=== PATIENT | male | born 1935 | race Caucasian/White ===

== ENCOUNTER → 2017-03-03 | Outpatient (CLI) | payer MEDICARE ==
[~2017-03-03] MED LIST: ASP81TEC PO; BISO1TAB39; C250T; CHOL10003 PO; CIPR500T78 PO; COD LIVER OIL; CYAN100021 PO; DOCU100T7; ERGO400C; FLAX OIL; FLAX SEED; FRSM20T; FURO20TA4; FURO40TA4; GLBR5T; INSU100C4; INSU100V6 SQ; KCL20TCR; LACT1CAP62 PO; LECITHIN; LEVE1U; LUTE20TA PO; LVT.05T PO; LYCO15CA PO; LYCOPENE 10 MG; METF-380; MTF500T; NF-METANX; NITR100C3 PO; OMG1KC; PANT40TA PO; POLY119P; POTA10CA16; PROSTATE PILL; SAXA5TAB PO; SMV20T; VIT1TABL83 PO; VITA-185 PO; VITA1CAP59; ZINC1CAP; [UNRECOGNIZED DRUG - OTHER]
--- NOTE | 2017-03-03 15:59 | Diagnostic Imaging Report ---
PROCEDURE: MRI lumbar spine. TECHNIQUE: Multiplanar, multisequence MRI of the lumbar spine was performed without contrast. INDICATION: Chronic back pain. FINDINGS: There is susceptibility artifact related to posterior fusion hardware at the L3 and L4 levels. There is suggestion of anterior fusion as well between L3 and L4 vertebral bodies. The alignment at the posterior spinal line is satisfactory. The vertebral body heights are preserved. There is significant disc height loss at the L5-S1 level. There is disc desiccation at all other levels. There is distortion of the marrow signal around the posterior fusion hardware, otherwise no significant marrow signal abnormality is seen. 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 It is not significantly changed from 02/21/2010. T12-L1: There is a minimal disc bulge. No spinal canal stenosis or foraminal narrowing. L1-L2: There is a minimal disc bulge. There is no spinal canal stenosis or foraminal narrowing. Minimal facet hypertrophy is seen at this level. L2-L3: There is a diffuse disc bulge and bilateral moderate facet hypertrophy. There is mild central canal stenosis reducing the AP dimension of the canal to 9.6 mm. The lateral recess demonstrates bilateral moderate narrowing worse on the left side. There is minimal foraminal stenosis bilaterally. L3-L4: There is fusion of the vertebral bodies with minimal remaining posterior osteophytes. No central canal stenosis. There is suggestion of mild foraminal narrowing on the left side only. L4-L5: There is a diffuse disc bulge asymmetric to the right side. There is iorn-kp-abkvvsjh facet hypertrophy bilaterally. There is central canal minimal stenosis reducing the AP dimension of the canal to 9.6 mm. The lateral recess demonstrates moderate stenosis on the right and mild stenosis on the left. There is severe foraminal stenosis on the right and no significant foraminal stenosis on the left. Also an extraforaminal right disc component is abutting the exiting right L4 spinal nerve. L5-S1: There is a diffuse disc bulge and mild facet hypertrophy. No central canal stenosis. There is mild narrowing of the lateral recess bilaterally. The foramina demonstrate mild stenosis on both sides. IMPRESSION: There is mild central canal stenosis and moderate lateral recess stenosis more on the left side at the L3-L4 level. There is severe foraminal stenosis on the right side at L4-L5. Other findings as above. Dictated by: Dictated on workstation # [id number]
== END ==
LOC: RAD 11:12
PROVIDERS: ATTEND Family Medicine
DX: M48.06 Spinal stenosis, lumbar region (principal)
CPT/HCPCS: 72148

== ENCOUNTER → 2018-02-08 | Outpatient (CLI) | payer MEDICARE | LOC: RT 13:58 | PROVIDERS: ATTEND Nurse Practitioner Family | DX: R06.02 Shortness of breath (principal); R06.2 Wheezing; I25.10 Atherosclerotic heart disease of native coronary artery without angina pectoris; I10 Essential (primary) hypertension; E78.5 Hyperlipidemia, unspecified | CPT/HCPCS: 94060; 94726; 94729 ==

== ENCOUNTER → 2018-02-24 | Outpatient (CLI) | payer MEDICARE ==
[2018-02-24 10:21] LABS: BASOPHILS % (AUTO) 0 % (0-10); EOSINOPHILS # (AUTO) 0.3 10^3/uL (0.0-0.3); EOSINOPHILS % (AUTO) 4 % (0-10); HEMATOCRIT 37 % (40-54); HEMOGLOBIN 12.1 G/DL (13.3-17.7); LYMPHOCYTES # (AUTO) 2.4 X 10^3 (1.0-4.0); LYMPHOCYTES % (AUTO) 26 % (12-44); MEAN CORPUSCULAR HEMOGLOBIN 27 PG (25-34); MEAN CORPUSCULAR HGB CONC 33 G/DL (32-36); MEAN CORPUSCULAR VOLUME 82 FL (80-99); MEAN PLATELET VOLUME 10.9 FL (7.4-10.4); MONOCYTES # (AUTO) 0.7 X 10^3 (0.0-1.0); MONOCYTES % (AUTO) 8 % (0-12); NEUTROPHILS # (AUTO) 5.5 X 10^3 (1.8-7.8); NEUTROPHILS % (AUTO) 61 % (42-75); PLATELET COUNT 232 10^3/uL (130-400); RED BLOOD COUNT 4.43 10^6/uL (4.35-5.85); RED CELL DISTRIBUTION WIDTH 14.5 % (10.0-14.5)
--- NOTE | 2018-02-24 10:41 | Diagnostic Imaging Report ---
Indication: Lower respiratory infection. PA and lateral chest There are postop changes from CABG surgery. Heart size and pulmonary vascularity are normal. Lungs are clear. There are no effusions or pneumothoraces. Impression: Negative chest. Dictated by: Dictated on workstation # [id number]
== END ==
LOC: RAD 09:46
PROVIDERS: ATTEND Nurse Practitioner Family
DX: J22 Unspecified acute lower respiratory infection (principal)
CPT/HCPCS: 36415; 71046; 85025

== ENCOUNTER → 2018-06-16 | Outpatient (CLI) | payer MEDICARE | LOC: CARD 10:05 | PROVIDERS: ATTEND Nurse Practitioner Family | DX: R06.02 Shortness of breath (principal); I25.10 Atherosclerotic heart disease of native coronary artery without angina pectoris; I34.0 Nonrheumatic mitral (valve) insufficiency | CPT/HCPCS: 93306 ==

== ENCOUNTER → 2018-08-10 | Outpatient (CLI) | payer MEDICARE ==
--- NOTE | 2018-08-10 14:59 | Diagnostic Imaging Report ---
PROCEDURE: CT lumbar spine without contrast. TECHNIQUE: Multiple contiguous axial images were obtained through the lumbar spine without the use of intravenous contrast. Sagittal and coronal reformations were then performed. INDICATION: Back pain, right leg pain. FINDINGS: There are no previous CT lumbar spine examinations available for comparison. The MRI lumbar spine exam of 02/21/2010 noted an osteophyte disc complex on the left at L3-4. In the interval since the previous exam, the patient has undergone a fusion of L3 and L4. There are bilateral pedicle screws in place at this level on this exam. The orthopedic hardware seems to be in good position. There is also an interbody device, and it too appears to be in good position. The axial images do show that there is a persistent extradural defect on the left at this level (image 60/111). This does appear to be related to a disc osteophyte complex. This finding compresses the left ventral aspect of the thecal sac resulting in mild spinal stenosis. There is also narrowing of the neural foramen on the left at this level, and there may be encroachment of the exiting left nerve root. There is no significant neural foraminal narrowing on the right at L3-4. In the interval since the prior study, a broad-based disc bulge has developed at the L4-5 level. There does appear to be trefoil stenosis at this level with narrowing of the neural foramen bilaterally, particularly on the right. At the L5-S1 level, there is narrowing of the disc space. This appearance is similar to the prior exam. There is a disc bulge centrally at this level, but there does not appear to be any significant central stenosis. There is moderate narrowing of the neural foramen bilaterally at this level, particularly on the right. At the L2-3 level, there is a broad-based disc bulge centrally which narrows the AP diameter of the thecal sac to approximately 10.8 mm. There is also mild narrowing of the neural foramen bilaterally at this level. There is no evidence for spinal stenosis or nerve root encroachment at L1-2. There is no fracture or acute bony abnormality identified. There is no sign of a paraspinal mass. Incidental note is again made of a large sacral cyst at the S2-3 level. IMPRESSION: 1. In the interval since the prior study, the patient has undergone a fusion of L3 and L4. The orthopedic hardware appears to be in good position. The extradural disc osteophyte complex on the left seen on the previous study at the L3-4 level still appears to be present. This does result in mild spinal stenosis on the left and narrowing of the neural foramen on the left. 2. In the interval since the previous exam, trefoil stenosis has developed at the L4-5 level. There is also narrowing of the neural foramen bilaterally at this level, particularly on the right. There is also moderate narrowing of the neural foramen bilaterally at L5-S1, again more so on the right. 3. There is mild narrowing of the thecal sac at the L2-3 level, but there is no significant central stenosis or neural foraminal narrowing identified. 4. There is no acute bony abnormality evident. Dictated by: Dictated on workstation # [id number]
== END ==
LOC: RAD 13:32
PROVIDERS: ATTEND Family Medicine
DX: M48.061 Spinal stenosis, lumbar region without neurogenic claudication (principal); M99.73 Connective tissue and disc stenosis of intervertebral foramina of lumbar region; Z98.1 Arthrodesis status
CPT/HCPCS: 72131

== ENCOUNTER → 2018-12-30 | Outpatient (CLI) | payer MEDICARE | LOC: CARD 08:10 | PROVIDERS: ATTEND Internal Medicine Cardiovascular Disease | DX: I25.10 Atherosclerotic heart disease of native coronary artery without angina pectoris (principal); R42 Dizziness and giddiness; M79.89 Other specified soft tissue disorders; I77.9 Disorder of arteries and arterioles, unspecified; E11.9 Type 2 diabetes mellitus without complications; K21.9 Gastro-esophageal reflux disease without esophagitis; E78.5 Hyperlipidemia, unspecified; I10 Essential (primary) hypertension | CPT/HCPCS: 93225; 93226 ==

== ENCOUNTER 2019-03-25 13:25 | Outpatient (RCR) | payer MEDICARE | END 2019-04-05 | disposition home or self-care (01) | PROVIDERS: ATTEND Neurological Surgery | DX: M48.061 Spinal stenosis, lumbar region without neurogenic claudication (principal); M54.5 Low back pain ==

== ENCOUNTER 2019-04-14 04:29 | Inpatient (IN) | payer MEDICARE ==
[~2019-04-14] VITALS: Ht 172.7 cm; Wt 91.7 kg
[2019-04-14] VITALS (15 sets, daily range): BP systolic 140–180; BP diastolic 61–150
[2019-04-14 05:17] LABS: BASOPHILS % (AUTO) 1 % (0-10); EOSINOPHILS # (AUTO) 0.2 10^3/uL (0.0-0.3); EOSINOPHILS % (AUTO) 3 % (0-10); HEMATOCRIT 36 % (40-54); LYMPHOCYTES % (AUTO) 23 % (12-44); MEAN CORPUSCULAR HEMOGLOBIN 25 PG (25-34); MEAN CORPUSCULAR HGB CONC 31 G/DL (32-36); MEAN CORPUSCULAR VOLUME 80 FL (80-99); MEAN PLATELET VOLUME 10.6 FL (7.4-10.4); MONOCYTES # (AUTO) 0.9 X 10^3 (0.0-1.0); MONOCYTES % (AUTO) 10 % (0-12); NEUTROPHILS # (AUTO) 5.7 X 10^3 (1.8-7.8); NEUTROPHILS % (AUTO) 64 % (42-75); PLATELET COUNT 230 10^3/uL (130-400); RED CELL DISTRIBUTION WIDTH 15.1 % (10.0-14.5); WHITE BLOOD COUNT 8.9 10^3/uL (4.3-11.0)
--- NOTE | 2019-04-14 05:18 | ED General ---
General Stated Complaint: HIGH BLOOD PRESSURE/196/78 Source of Information: Patient, Family History of Present Illness Date Seen by Provider: Apr 14, 2019 Time Seen by Provider: 04:05 Initial Comments PT ARRIVES VIA POV FROM HOME--[facility] C/O ELEVATED BLOOD PRESSURE--> 200 SYSTOLIC--SINCE 0300 THIS AM PT WITH CHRONIC HTN, AND DAUGHTER STATES THIS IS THE 4TH INCIDENT IN THE LAST 30 DAYS OF SPIKING OF BLOOD PRESSURE--190'S-200'S SYSTOLIC. AND THIS IS THE FIRST TIME IT HAS HAPPENED TWICE IN 24 HOURS CHECKS HIS BLOOD PRESSURE MULTIPLE TIMES A DAY READINGS OVER THE LAST 24 HOURS: 0810--199/68, PULSE 63 0830--193/69, PULSE 58 1230--136/52, PULSE 68 1430--128/58, PULSE 62 1440--139/61, PULSE 63 1930--153/70, PULSE 73 2200--146/60, PULSE 62 0330--206/86, PULSE 68 0400--203/77, PULSE 59 JUST PRIOR TO ARRIVAL--209/74, PULSE 56 BLOOD GLUCOSE AT 0810 YESTERDAY 180 BLOOD GLUCOSE JUST PRIOR TO ARRIVAL WAS 150 PT STATES HE DID NOT HAVE ANY SYMPTOMS WHEN HE WENT TO BED AT 2200 WOKE UP AT 0300 WITH PROFUSE SWEATS, SO CHECKED HIS BLOOD GLUCOSE AND IT WAS 150, SO STARTED CHECKING HIS BP AND PULSE BLOOD SUGARS ARE NORMALLY IN 200'S NO CHEST PAIN C/O SLIGHT DIZZINESS C/O MILD NAUSEA, NO VOMITING NO SHORTNESS OF BREATH DID HAVE MILD HEADACHE, NOT NOW NO PALPITATIONS LEGS ARE ALWAYS SWOLLEN--WAS ON LASIX 40 MG DAILY, BUT SELF DECREASED IT TO 20 MG DAILY RECENTLY DUE TO URINARY FREQUENCY PT HAS NOT TAKEN ANY MEDICATIONS TODAY, TOOK PM DOSES AT 1800 LAST PM. PT HAS HISTORY OF CAD AND CABG SEVERAL YEARS AGO, NO [place]. PT LOST 4 MONTHS AGO DAUGHTER REPORTS THAT PT HAS BEEN WORRIED ABOUT DYING THE PAST 2 WEEKS, HAS BEEN DEPRESSED, CRYING, FEELING LONELY, AND WANTS DAUGHTER OR SOMEONE WITH HIM ALL THE TIME PCP: DR. ARAIZA--HAS AN APPOINTMENT ON THURSDAY SSIS SSRS DEVELOPER: DR. MENDES Allergies and Home Medications Allergies Coded Allergies: codeine (Verified Adverse Reaction, Mild, SEVERE N/V, 11/07/09) morphine (Unverified Adverse Reaction, Mild, SEVERE N/V, 11/07/09) Home Medications Aspirin 81 Mg Tabec, 81 MG PO DAILY, (Reported) Bisoprol/Hydrochlorothiazide 1 Tab Tablet, BID, (Reported) Cholecalciferol 1,000 Unit Tablet, 1,000 UNIT PO DAILY, (Reported) Ciprofloxacin HCl 500 Mg Tablet, 500 MG PO BID Prescribed by: PAULINE BOATENG on 09/20/13 1253 Cyanocobalamin 1,000 Mcg/15 Ml Oral.susp, 1,000 MCG PO HS, (Reported) Furosemide 20 Mg Tablet, 2 TAB DAILY, (Reported) Insulin Glargine,Hum.rec.anlog 100 Unit/1 Ml Vial, 34 UNIT SQ DAILY, (Reported) Lactobacillus Acidophilus 1 Each Capsule, 1 EACH PO DAILY, (Reported) Levothyroxine Sodium 50 Mcg Tablet, 1 EACH PO DAILY, (Reported) Lutein 20 Mg Tablet, 20 MG PO DAILY, (Reported) Lycopene 15 Mg Capsule, 10 MG PO HS, (Reported) Me-Cobalam/Lm-Folate/Pyridoxal 1 Tab Tablet, BID, (Reported) Metformin Hcl 500 Mg Tablet, 2 TAB BID, (Reported) [place] 3 Polyunsat Fatty Acids 1,000 Mg Cap, 2 TAB BID, (Reported) Potassium Chloride 10 Meq Capsule.sa, DAILY, (Reported) Saxagliptin Hydrochloride 5 Mg Tablet, 5 MG PO DAILY, (Reported) Simvastatin 20 Mg Tab, HS, (Reported) Vit A,C & E/Lutein/Minerals 1 Each Tablet, 1 EACH PO BID, (Reported) Vitamin B Complex 1 Each Tablet, 1 EACH PO DAILY, (Reported) Zinc Mth/Copper/Saw Palm/Gnsg 1 Each Capsule, BID, (Reported) [Cod Liver Oil] , 2 TAB BID, (Reported) Patient Home Medication List Home Medication List Reviewed: Yes Review of Systems Review of Systems Constitutional: diaphoresis, dizziness Respiratory: no symptoms reported; No short of breath Cardiovascular: No chest pain; edema; No palpitations, No syncope; vascular heart diseas Gastrointestinal: No abdominal pain; nausea; No vomiting Genitourinary: frequency Musculoskeletal: see HPI, back pain (CHRONIC ) Skin: no symptoms reported Psychiatric/Neurological: See HPI, Headache Hematologic/Lymphatic: No Symptoms Reported Immunological/Allergic: no symptoms reported Past Xuvcfks-Cborxg-Pfjzrh Hx Patient Social History Alcohol Use: Occasionally Uses Recreational Drug Use: No Smoking Status: Former Smoker (QUIT YEARS AGO) Type Used: Cigarettes Recent Foreign Travel: No Contact w/Someone Who Travel: No Immunizations Up To Date Date of Pneumonia Vaccine: Jul 22, 2011 Date of Influenza Vaccine: Jun 22, 2012 Past Medical History Surgeries: Yes (CARDIAC CATHS--S/P CABG; BACK SURGERY X 2; PROSTATE SURGERY) Cardiac, CABG, Orthopedic, Transurethral Resection Respiratory: No Cardiac: Yes Chronic Edema/Swelling, Coronary Artery Disease, High Cholesterol, Hypertension Neurological: No Reproductive Disorders: No Genitourinary: Yes Benign Prostatic Hyperpl, Prostate Problems Gastrointestinal: Yes Gastroesophageal Reflux, Hiatal Hernia Musculoskeletal: Yes (BACK SURGERY X 2) Arthritis, Chronic Back Pain Endocrine: Yes Diabetes, Insulin dep, Hypothyroidsim HEENT: Yes Cataract Cancer: No Psychosocial: No Integumentary: No Blood Disorders: No Family Medical History No Pertinent Family Hx Physical Exam Vital Signs Vital Signs - First Documented 04/14/19 04:38 Temp 97.3 Pulse 64 Resp 18 B/P (MAP) 203/71 (115) Capillary Refill : Height, Weight, BMI Height: 5'8.00" Weight: 205lbs. 0.0oz. 92.587430cf; 31.2 BMI Method:Stated General Appearance: No Apparent Distress, WD/WN Neck: Full Range of Motion, Normal Inspection, Non Tender, Supple; No Carotid Bruit, No JVD Respiratory: Normal Breath Sounds, No Accessory Muscle Use, No Respiratory Distress Cardiovascular: Regular Rate, Rhythm, No Murmur Gastrointestinal: Normal Bowel Sounds, No Organomegaly, No Pulsatile Mass, Non Tender, Soft Extremity: Normal Capillary Refill, Normal Range of Motion, Pedal Edema (2+ BILATERALLY) Neurologic/Psychiatric: Alert, Oriented x3, No Motor/Sensory Deficits, food tray assembler II- XII Norm as Tested, Other (FLAT AFFECT. ) Skin: Normal Color, Warm/Dry Progress/Results/Core Measures Suspected Sepsis SIRS Temperature: Pulse: Respiratory Rate: Laboratory Tests 04/14/19 05:05: White Blood Count 8.9 Blood Pressure / Mean: Laboratory Tests 04/14/19 05:05: Creatinine 1.14, INR Comment 0.9, Platelet Count 230, Total Bilirubin 0.2 Results/Orders Lab Results Laboratory Tests Test 04/14/19 04:49 04/14/19 05:05 04/14/19 06:10 Range/Units Glucometer 167 H 70-110 MG/DL White Blood Count 8.9 4.3-11.0 10^3/uL Red Blood Count 4.47 4.35-5.85 10^6/uL Hemoglobin 11.0 L 13.3-17.7 G/DL Hematocrit 36 L 40-54 % Mean Corpuscular Volume 80 80-99 FL Mean Corpuscular Hemoglobin 25 25-34 PG Mean Corpuscular Hemoglobin Concent 31 L 32-36 G/DL Red Cell Distribution Width 15.1 H 10.0-14.5 % Platelet Count 230 130-400 10^3/uL Mean Platelet Volume 10.6 H 7.4-10.4 FL Neutrophils (%) (Auto) 64 42-75 % Lymphocytes (%) (Auto) 23 12-44 % Monocytes (%) (Auto) 10 0-12 % Eosinophils (%) (Auto) 3 0-10 % Basophils (%) (Auto) 1 0-10 % Neutrophils # (Auto) 5.7 1.8-7.8 X 10^3 Lymphocytes # (Auto) 2.0 1.0-4.0 X 10^3 Monocytes # (Auto) 0.9 0.0-1.0 X 10^3 Eosinophils # (Auto) 0.2 0.0-0.3 10^3/uL Basophils # (Auto) 0.0 0.0-0.1 10^3/uL Prothrombin Time 12.1 L 12.2-14.7 SEC INR Comment 0.9 0.8-1.4 Activated Partial Thromboplast Time 31 24-35 SEC Sodium Level 139 135-145 MMOL/L Potassium Level 3.9 3.6-5.0 MMOL/L Chloride Level 96 L 98-107 MMOL/L Carbon Dioxide Level 25 21-32 MMOL/L Anion Gap 18 H 5-14 MMOL/L Blood Urea Nitrogen 22 H 7-18 MG/DL Creatinine 1.14 0.60-1.30 MG/DL Estimat Glomerular Filtration Rate > 60 BUN/Creatinine Ratio 19 Glucose Level 171 H 70-105 MG/DL Calcium Level 9.4 8.5-10.1 MG/DL Corrected Calcium 9.5 8.5-10.1 MG/DL Magnesium Level 1.8 1.8-2.4 MG/DL Total Bilirubin 0.2 0.1-1.0 MG/DL Aspartate Amino Transf (AST/SGOT) 19 5-34 U/L Alanine Aminotransferase (ALT/SGPT) 16 0-55 U/L Alkaline Phosphatase 77 40-136 U/L Troponin I < 0.028 <0.028 NG/ML B-Type Natriuretic Peptide 68.5 <100.0 PG/ML Total Protein 6.6 6.4-8.2 GM/DL Albumin 3.9 3.2-4.5 GM/DL My Orders Orders - ROCÍO CHI DO Accucheck Stat ONCE (04/14/19 04:58) Ed Iv/Invasive Line Start (04/14/19 04:58) Ekg Tracing (04/14/19 04:58) Monitor-Rhythm Ecg Trace Only (04/14/19 04:58) Chest 1 View, Ap/Pa Only (04/14/19 04:58) BNP (04/14/19 04:58) Cbc With Automated Diff (04/14/19 04:58) Comprehensive Metabolic Panel (04/14/19 04:58) Magnesium (04/14/19 04:58) Protime With Inr (04/14/19 04:58) Partial Thromboplastin Time (04/14/19 04:58) Ua Culture If Indicated (04/14/19 04:58) Troponin I (04/14/19 04:58) Furosemide Tablet (Lasix Tablet) (04/14/19 06:15) Hydralazine Injection (Apresoline Inject (04/14/19 06:15) Furosemide Tablet (Lasix Tablet) (04/14/19 06:01) Medications Given in ED Current Medications Medications Dose Ordered Sig/Keisha Route Start Time Stop Time Status Last Admin Dose Admin Furosemide 40 mg ONCE ONCE PO 04/14/19 06:15 04/14/19 06:16 UNV 04/14/19 06:09 40 MG Hydralazine HCl 10 mg ONCE ONCE IV 04/14/19 06:15 04/14/19 06:16 UNV 04/14/19 06:09 10 MG Vital Signs/I&O 04/14/19 04:38 Temp 97.3 Pulse 64 Resp 18 B/P (MAP) 203/71 (115) Capillary Refill : Progress Note : Progress Note BP BEGINNING TO COME DOWN WITHOUT TREATMENT--DOWN TO 170-180'S SYSTOLIC. GAVE HYDRALAZINE AT BP DOWN TO < 180 SYSTOLIC AT TIME OF ADMIT. NO DETERIORATION IN PT'S CONDITION DURING ER STAY ECG Initial ECG Impression Date: Apr 14, 2019 Initial ECG Impression Time: 05:32 Initial ECG Rate: 54 Initial ECG Rhythm: Normal Sinus Diagnostic Imaging Comments CXR--NO ACUTE PROCESS, PER RADIOLOGIST REPORT AT 0554 Reviewed: Reviewed by Me Departure Communication (Admissions) 0603--SPOKE WITH DR. BANSAL, HOSPITALIST, ACCEPTS PT FOR ADMIT. WILL CONSULT CARDIOLOGY Impression Primary Impression: Uncontrolled hypertension Additional Impressions: IDDM (insulin dependent diabetes mellitus) HX OF CAD WITH CABG Disposition: ADMITTED INPATIENT Condition: Improved Admissions Decision to Admit Reason: Admit from ER (General) Decision to Admit/Date: Apr 14, 2019 Time/Decision to Admit Time: 06:00 Departure-Patient Inst. Referrals: RADHA ARAIZA MD (PCP/Family) Primary Care Physician ROCÍO CHI DO Apr 14, 2019 05:18
[2019-04-14 05:27] LABS: INR 0.9 (0.8-1.4); PROTHROMBIN TIME PATIENT 12.1 SEC (12.2-14.7)
[2019-04-14 05:39] LABS: ALANINE AMINOTRANSFERASE 16 U/L (0-55); ALBUMIN 3.9 GM/DL (3.2-4.5); ALKALINE PHOSPHATASE 77 U/L (40-136); BILIRUBIN,TOTAL 0.2 MG/DL (0.1-1.0); BUN/CREATININE RATIO 19; CALCIUM 9.4 MG/DL (8.5-10.1); CARBON DIOXIDE 25 MMOL/L (21-32); CHLORIDE 96 MMOL/L (98-107); CREATININE SERUM 1.14 MG/DL (0.60-1.30); GFR ESTIMATED > 60; GLUCOSE 171 MG/DL (70-105); MAGNESIUM 1.8 MG/DL (1.8-2.4); POTASSIUM 3.9 MMOL/L (3.6-5.0); SODIUM 139 MMOL/L (135-145); TOTAL PROTEIN 6.6 GM/DL (6.4-8.2)
--- NOTE | 2019-04-14 05:51 | Diagnostic Imaging Report ---
INDICATION: Hypertension. Portable upright AP view of the chest is obtained with comparison made study of 02/24/2018. FINDINGS: Heart size and pulmonary vascularity are within normal limits, and the lungs are clear, bilaterally. IMPRESSION: Unremarkable chest. Dictated by: Dictated on workstation # [id number]
[2019-04-14] MEDS ORDERED: hydrALAZINE (APESOLINE) 20 MG/ML VIAL ONE (06:00)
[2019-04-14] MEDS ORDERED: FUROSEMIDE 20 MG (LASIX) TAB ONE (06:01)
[2019-04-14] MEDS ORDERED: FUROSEMIDE 40 MG (LASIX) TAB PO ONE (06:15)
[2019-04-14] MEDS ORDERED: hydrALAZINE (APESOLINE) 20 MG/ML VIAL IV ONE (06:15)
[2019-04-14 06:18] LABS: BILIRUBIN,URINE NEGATIVE (NEGATIVE); CLARITY,URINE CLEAR; COLOR,URINE YELLOW; GLUCOSE, URINE (UA) NEGATIVE (NEGATIVE); KETONES,URINE NEGATIVE (NEGATIVE); LEUKOCYTE ESTERASE ,URINE NEGATIVE (NEGATIVE); NITRITE,URINE NEGATIVE (NEGATIVE); PH,URINE 7 (5-9); PROTEIN,URINE 1+ (NEGATIVE); UROBILINOGEN,URINE NORMAL (NORMAL)
[2019-04-14 06:24] LABS: AMORPHOUS SEDIMENT,UR FEW AMOR PHOSPHATE /LPF; BACTERIA,URINE NEGATIVE /HPF; SQUAMOUS EPITHELIAL CELL,UR RARE /HPF
[2019-04-14] MEDS ORDERED: CATHETER FLUSH 10 ML SYR IV PRN (07:15)
[2019-04-14] MEDS ORDERED: CLOB15CR2 TOP (08:30)
[2019-04-14] MEDS ORDERED: INSU100I34 SC (08:30)
[2019-04-14] MEDS ORDERED: LEVO100T7 PO (08:30)
[2019-04-14] MEDS ORDERED: FURO20TA4 PO (08:30)
[2019-04-14] MEDS ORDERED: SIMV20TA3 PO (08:30)
[2019-04-14] MEDS ORDERED: GLIP10TA13 PO (08:30)
[2019-04-14] MEDS ORDERED: METF-397 PO (08:30)
[2019-04-14] MEDS ORDERED: BISO1TAB3 PO (08:30)
[2019-04-14] MEDS ORDERED: TRAM50TA2 PO (08:30)
[2019-04-14] MEDS ORDERED: FINA5TAB6 PO (08:30)
[2019-04-14] MEDS ORDERED: OMEG1CAP58 PO (08:43)
[2019-04-14] MEDS ORDERED: VIT-10 PO (08:43)
[2019-04-14] MEDS ORDERED: LYCO10CA2 PO (08:43)
[2019-04-14] MEDS ORDERED: SAW/1TAB2 PO (08:43)
[2019-04-14] MEDS ORDERED: CHOL10007 PO (08:43)
[2019-04-14] MEDS ORDERED: COD1CAPS6 PO (08:43)
[2019-04-14] MEDS ORDERED: ASPI-983 PO (08:43)
[2019-04-14] MEDS ORDERED: LEVO1CAP11 PO (08:43)
[2019-04-14] MEDS ORDERED: LUTE20TA PO (08:44)
[2019-04-14] MEDS ORDERED: POTA99TA21 PO (08:44)
[2019-04-14] MEDS ORDERED: ZINC50TA51 PO (08:44)
[2019-04-14] MEDS ORDERED: INSU100I34 SQ (08:44)
[2019-04-14] MEDS ORDERED: ACET-2267 PO (08:44)
[2019-04-14] MEDS ORDERED: MAGN400T39 PO (08:44)
[2019-04-14] MEDS ORDERED: MULT1TAB69 PO (08:44)
[2019-04-14] MEDS ORDERED: CYAN10006 PO (08:44)
[2019-04-14] MEDS ORDERED: ONDN4T PO (08:51)
--- NOTE | 2019-04-14 08:51 | NUR ---
WENT OVER THE EXT MED HX WITH THE PATIENT AND COMPARED IT WITH THE DETAILED LIST HE HAD WITH HIM. SEE CHART FOR A COPY OF HIS LIST. THERE WERE JUST A FEW MEDICATIONS I ADDED TO HIS LIST. HE FILLED LEVOTHYROXINE 100MCG #90 03-21-19 HE STATES HE ONLY TAKES 1/2 TAB DAILY. HE FILLED BASAGLAR 45 AM AND 30 HS 03-21-19 HOWEVER STATES HE TAKES 40 AM AND 30 HS. HIS LASIX 20MG WAS FILLED #180 BID 03-03-19 HOWEVER HE STATES HE TAKES 2 TABS IN THE MORNING.
[2019-04-14] MEDS ORDERED: amLODIPine 10 MG (NORVASC) TAB PO NR (09:15)
--- NOTE | 2019-04-14 09:21 | NUR ---
Initial visit with the pt and his daughter. Offered compassionate presence and engaged in active listening. Pt states he came to the hospital at 4am, and would appreciate prayer for improvement so he can return home. He is [employer] and affiliated with [facility]. They both requested Fr. Davis be contacted for support. Message given to Fr. Davis
--- NOTE | 2019-04-14 10:06 | History & Physical-Hospitalist ---
History of Present Illness HPI/Chief Complaint Chief complaint: Diaphoresis with vague chest pressure. HPI: This is an 83yoWM known to me when I took care of his when I recently four months ago, who the Pt is having real difficulty with grief reaction, presented to the ER after he was woke up this morning at 0300 after a diaphoretic episode. He was found to have malignant hypertension and a history of heart disease in need of risk-stratification. Dr. Au did see the Pt and will evaluate additional testing that will be needed. Norvasc was give of 5 Mg for severe hypertension and will be monitored in closely in the mean time and will evaluate the next step in his care plan. Source: patient, RN/MD, old records Exam Limitations: no limitations Date Seen 04/14/19 Time Seen by a Provider: 09:45 Attending Physician Blank Fuentes Floyd R MD Referring Physician Date of Admission Apr 14, 2019 at 06:00 Home Medications & Allergies Home Medications Reviewed patient Home Medication Reconciliation performed by pharmacy medication reconciliations spray technician and/or nursing. Patients Allergies have been reviewed. Allergies Allergies Coded Allergies codeine (Verified Adverse Reaction, Mild, SEVERE N/V, 11/07/09) morphine (Unverified Adverse Reaction, Mild, SEVERE N/V, 11/07/09) Past Zlnmvux-Abgiyv-Hcztbi Hx Past Med/Social Hx: Reviewed Nursing Past Med/Soc Hx, Reviewed and Corrections made Patient Social History Marrital Status: Employed/Student: retired Alcohol Use: Occasionally Uses Recreational Drug Use: No Smoking Status: Former Smoker (QUIT YEARS AGO) Type Used: Cigarettes Recent Foreign Travel: No Contact w/other who traveled: No Recent Hopitalizations: Yes (HX-BACK SURG.) Recent Infectious Disease Expo: No Immunizations Up To Date Date of Pneumonia Vaccine: Jul 22, 2011 Date of Influenza Vaccine: Jun 22, 2012 Past Medical History Surgeries: Cardiac, CABG, Orthopedic, Transurethral Resection Cardiac: Chronic Edema/Swelling, Coronary Artery Disease, High Cholesterol, H ypertension Reproductive: No Sexually Transmitted Disease: No Genitourinary: Benign Prostatic Hyperpl, Prostate Problems Gastrointestinal: Gastroesophageal Reflux, Hiatal Hernia Musculoskeletal: Arthritis, Chronic Back Pain Endocrine: Diabetes, Insulin dep, Hypothyroidsim HEENT: Cataract History of Blood Disorders: No Family History No Pertinent Family Hx Review of Systems Constitutional: see HPI, dizziness EENTM: no symptoms reported Respiratory: no symptoms reported Cardiovascular: chest pain Gastrointestinal: no symptoms reported Genitourinary: no symptoms reported Musculoskeletal: no symptoms reported Skin: no symptoms reported Psychiatric/Neurological: No Symptoms Reported All Other Systems Reviewed Negative Unless Noted: Yes Physical Exam Physical Exam Vital Signs Vital Signs - First Documented 04/14/19 04/14/19 04/14/19 04:38 06:46 07:10 Temp 97.3 Pulse 64 Resp 18 B/P (MAP) 203/71 (115) Pulse Ox 98 O2 Delivery Room Air Capillary Refill : Less Than 3 SecondsLess Than 3 Seconds Height, Weight, BMI Height: 5'8.00" Weight: 187lbs. 0.0oz. 84.986738lx; 28.4 BMI Method:Stated General Appearance: No Apparent Distress, WD/WN, Chronically ill Eyes: Right Eye Normal Inspection, Right Eye PERRL HEENT: PERRL/EOMI, TMs Normal, Normal ENT Inspection, Pharynx Normal, Moist Mucous Membranes Neck: Full Range of Motion, Normal Inspection, Non Tender Respiratory: Chest Non Tender, Lungs Clear, Normal Breath Sounds, No Accessory Muscle Use, No Respiratory Distress Cardiovascular: Regular Rate, Rhythm, No Edema, No Gallop, No JVD, No Murmur, Normal Peripheral Pulses Gastrointestinal: Normal Bowel Sounds, No Organomegaly, No Pulsatile Mass, Non Tender, Soft Back: Normal Inspection, No CVA Tenderness, No Vertebral Tenderness Extremity: Normal Capillary Refill, Normal Inspection, Normal Range of Motion, Non Tender, No Calf Tenderness, No Pedal Edema Neurologic/Psychiatric: Alert, Oriented x3, No Motor/Sensory Deficits, Normal Mood/Affect Skin: Normal Color, Warm/Dry Lymphatic: No Adenopathy Results Results/Procedures Labs Laboratory Tests 04/14/19 05:05 Patient resulted labs reviewed. Assessment/Plan Admission Diagnosis Assessment: Diaphoresis with chest pain suspicious for acute coronary syndrome Known CAD previous bypass Malignant hypertension with urgency Hyperlipidemia Severe grief reaction Insomnia Plan: Home meds Appreciate cardiology consultation Monitor blood pressure and treat aggressively Admission Status: Inpatient Order (span 2 midnights) Reason for Inpatient Admission: ACS will require 3 days for HTN management and procedures Diagnosis/Problems Diagnosis/Problems (1) Hypertensive urgency, malignant Status: Acute (2) Chest pain Status: Acute Qualifiers: Chest pain type: unspecified Qualified Codes: R07.9 - Chest pain, unspecified (3) Diaphoresis Status: Acute (4) Diabetes Status: Chronic Qualifiers: Diabetes mellitus type: type 2 Diabetes mellitus intermediate insulin use: unspecified local company intermodal truck driver insulin use status Diabetes mellitus complication status: with other specified complication Qualified Codes: E11.69 - Type 2 diabetes mellitus with other specified complication (5) Hyperlipemia Status: Chronic Qualifiers: Hyperlipidemia type: mixed hyperlipidemia Qualified Codes: E78.2 - Mixed hyperlipidemia (6) CAD (coronary artery disease) Status: Chronic Qualifiers: Coronary Disease-Associated Artery/Lesion type: [place] artery [place] vs. transplanted heart: [place] heart Associated angina: without angina Qualified Codes: I25.10 - Atherosclerotic heart disease of [place] coronary artery without angina pectoris (7) Hx of CABG Status: Chronic (8) Grief reaction Status: Chronic Clinical Quality Measures DVT/VTE Risk/Contraindication: Risk Factor Score Per Nursin RFS Level Per Nursing on Admit: 4+=Very High BLANK FUENTES DO Apr 14, 2019 10:06
[2019-04-14] MEDS ORDERED: NON-FORMULARY MEDICATION 1 EA EA (Ondansetron HCl (Zofran) 4 MG) PO PRN (10:15)
[2019-04-14] MEDS ORDERED: ONDANSETRON 4 MG (ZOFRAN) ORAL DISSOLVE TAB PO PRN (10:30)
[2019-04-14] MEDS: inSUlin ASPART (NovoLOG) 1 UNIT/0.01 ML (CHARGE PER UNIT) SC SCH ×3 (11:07→21:21)
[2019-04-14] MEDS: glipiZIDE 5 MG (GLUCOTROL) TAB PO SCH (11:08)
[2019-04-14] MEDS ORDERED: NON-FORMULARY MEDICATION 1 EA EA (Glipizide 10 MG) PO SCH (12:00)
[2019-04-14] MEDS: CATHETER FLUSH 10 ML SYR IV SCH ×2 (14:06→23:10)
--- NOTE | 2019-04-14 14:11 | NUR ---
provided prayer and Communion. Fr JOSHUA was here this morning to daria sharp.
--- NOTE | 2019-04-14 15:22 | Consultation-Cardiology ---
HPI-Cardiology Cardiology Consultation: Date of Consultation 04/14/19 Date of Admission Attending Physician Blank Fuentes DO Admitting Physician Alfonzo Pereira MD Consulting Physician Trevor AU MD HPI: Time Seen by a Provider: 14:00 Chief Complaint: severe hypertension this is a 83-year-old gentleman who presents with severely elevated blood pressure. His blood pressure was over 200 mmHg. he complains of diaphoresis, dizziness and nausea. He denies any chest pain or shortness of breath. He initially had headache but then improved in the ER. He has bilateral lower extremity swelling. he has history of coronary disease and CABG. No history of myocardial infarction. Review of Systems-Cardiology Review of Systems Constitutional: As described under HPI; No As described under HPI, No no symptoms reported, No chills, No fever; lightheadedness Eyes: No As described under HPI, No no symptoms reported, No blindness, No blurred vision, No contact lenses, No drainage, No decreased acuity, No foreign body sensation, No pain, No vision change Ears/Nose/Throat: No As described under HPI, No no symptoms reported, No chronic hearing loss, No ear discharge, No ear pain, No nasal drainage, No ulcerations Respiratory: No no symptoms reported; As described under HPI; No As described under HPI, No cough, No orthopnea, No shortness of breath, No SOB with excertion Cardiovascular: No no symptoms reported; As described under HPI; No As described under HPI, No chest pain, No edema, No irregular heart rate, No lightheadedness, No palpitations Gastrointestinal: No no symptoms reported, No As described under HPI, No abdomen distended, No abdominal pain, No blood streaked bowels, No constipation, No diarrhea, No nausea, No vomiting; nausea/vomiting/diarrhea; No stool coloration changes Genitourinary: No As described under HPI, No burning, No dysuria, No discharge, No frequency, No flank pain, No hematuria, No urgency Skin: No rash, No skin related problems, No ulcerations Psychiatric/Neurological: As described under HPI, headache; No anxiety, No depression, No seizure, No focal weakness, No syncope Hematologic: No bleeding abnormalities [id number] Hx Patient Social History Alcohol Use: Occasionally Uses Recreational Drug Use: No Smoking Status: Former Smoker (QUIT YEARS AGO) Type Used: Cigarettes Recent Foreign Travel: No Recent Infectious Disease Expo: No Hospitalization with Isolation: Denies Immunizations Up To Date Date of Pneumonia Vaccine: Jul 22, 2011 Date of Influenza Vaccine: Jun 22, 2012 Past Medical History PMH As described under Assessment. Allergies and Home Medications Allergies Coded Allergies: codeine (Verified Adverse Reaction, Mild, SEVERE N/V, 11/07/09) morphine (Unverified Adverse Reaction, Mild, SEVERE N/V, 11/07/09) Home Medications Acetaminophen 500 Mg Tablet, 500 MG PO BID, (Reported) Aspirin 81 Mg Tablet.dr, 81 MG PO DAILY, (Reported) Bisoprolol Fumarate/Hctz 1 Each Tablet, 1 TAB PO BID, (Reported) Cholecalciferol (Vitamin D3) 1,000 Unit Capsule, 1,000 UNIT PO 1800, (Reported) Clobetasol Propionate 15 Gm Cream..g., TOP BID PRN for SPOTS ON HEAD, (Reported) Cod Liver Oil 1 Each Capsule, 1 CAP PO 1800, (Reported) Cyanocobalamin (Vitamin B-12) 1,000 Mcg Tablet, 1,000 MCG PO DAILY, (Reported) Finasteride 5 Mg Tablet, 5 MG PO DAILY, (Reported) Furosemide 20 Mg Tablet, 40 MG PO DAILY, (Reported) TAKES 2 (20MG) TABLETS Glipizide 10 Mg Tablet, 10 MG PO 1200, (Reported) Insulin Glargine,Hum.rec.anlog 100 Unit/1 Ml Insuln.pen, 40 UNITS SC DAILY, (Reported) Insulin Glargine,Hum.rec.anlog 100 Unit/1 Ml Insuln.pen, 30 UNIT SQ HS, (Reported) Levomefolate/B6/B12/Algal Oil 1 Each Capsule, 1 CAP PO BID, (Reported) Levothyroxine Sodium 100 Mcg Tablet, 50 MCG PO DAILY, (Reported) TAKES 1/2 (100MCG) TABLET Lutein 20 Mg Tablet, 20 MG PO DAILY, (Reported) Lycopene 10 Mg Capsule, 10 MG PO 1800, (Reported) Magnesium Oxide 400 Mg Tablet, 400 MG PO 1800, (Reported) Metformin HCl 500 Mg Tablet, 1,000 MG PO BID, (Reported) TAKES 2 (500MG) TABLETS Multivitamin 1 Each Tablet, 1 TAB PO DAILY, (Reported) [place]-3 Fatty Acids/Fish Oil 1 Each Capsule, 1,000 MG PO DAILY, (Reported) Ondansetron HCl 4 Mg Tab, 4 MG PO Q6H PRN for NAUSEA/VOMITING-1ST LINE, (Reported) Potassium Gluconate 99 Mg Tablet, 99 MG PO DAILY, (Reported) Saw/Vit E/Sod Monica/Lyc/Beta/Pyg 1 Each Tablet, 1 TAB PO 1800, (Reported) Simvastatin 20 Mg Tablet, 20 MG PO 1800, (Reported) Tramadol HCl 50 Mg Tablet, 50 MG PO BID, (Reported) Vit A/C/E/Zinc/Selenium/Copper 1 Each Tablet, 1 TAB PO DAILY, (Reported) Zinc Amino Acid Chelate 50 Mg Tablet, 50 MG PO DAILY, (Reported) Patient Home Medication List Home Medication List Reviewed: Yes Physical Exam-Cardiology Physical Exam Vital Signs/I&O 04/14/19 04/14/19 04/14/19 04/14/19 04:38 06:46 07:05 07:10 Temp 97.3 97.3 Pulse 64 67 67 Resp 18 18 B/P (MAP) 203/71 (115) 172/87 (115) Pulse Ox 98 98 O2 Delivery Room Air 04/14/19 04/14/19 04/14/19 04/14/19 07:15 07:30 07:45 08:00 Temp 97.4 Pulse 69 66 71 55 Resp 13 10 31 20 B/P (MAP) 150/103 (119) 170/74 (106) 168/150 (156) 174/61 (98) Pulse Ox 99 97 96 98 O2 Delivery Room Air Room Air Room Air Room Air 04/14/19 04/14/19 04/14/19 04/14/19 08:00 08:30 09:00 09:00 Pulse 65 58 Resp 16 10 B/P (MAP) 163/70 (101) 180/66 (104) Pulse Ox 98 97 97 97 O2 Delivery Room Air Room Air Room Air Room Air 04/14/19 04/14/19 04/14/19 04/14/19 10:00 11:00 12:00 12:00 Pulse 64 60 58 Resp 13 16 11 B/P (MAP) 164/73 (103) 150/64 (92) 152/62 (92) Pulse Ox 97 94 98 97 O2 Delivery Room Air Room Air Room Air Room Air 04/14/19 12:00 Temp 97.0 Capillary Refill : Less Than 3 SecondsLess Than 3 Seconds Constitutional: appears stated age, AAO x 3; No apparent distress; well- developed, well-nourished HEENT: PERRL; No normal ENT inspection, No TMs normal, No pharynx normal, No scleral icterus (R), No scleral icterus (L), No pale conjunctivae (R), No pale conjunctivae (L), No photophobia, No TM abnormal (R), No TM abnormal (L), No p haryngeal erythema, No tonsillar exudate, No other, No discharge, No EOMI; hearing is well preserved; No hard of hearing; oral hygience is good; No ulceration, No xanthelasmas are seen Neck: No non-tender, No full range of motion, No supple, No normal inspection, No carotid bruit, No limited range of motion, No lymphadenopathy (R), No lymphadenopathy (L), No tender lateral, No tender midline, No thyromegaly, No other; carotid pulses are 2 + bilaterally; No with good upstrokes Respiratory: No accessory muscle use, No respiratory distress, No chest tender, No chest expansion is symmetric; chest is bilaterally symmetric; No lungs clear to percussion; lungs clear to auscultation; No crackles, No rhonchi, No rales, No stridor, No wheezing, No pleural rub, No other Cardiovascular: regular rate-rhythm; No irregularly irregular, No extra beats, No parasternal heave is noted, No JVD, No edema, No bradycardia, No tachycardia, No point of maximal impulse, No cardiac thrills are palpable; S1 and S2; No gallop/S3, No gallop/S4, No diastolic murmur, No systolic murmur, No friction ru b, No click, No other Gastrointestinal: No tender, No soft, No round, No distended, No pulsatile mass, No organomegaly, No guarding, No rebound, No tenderness, No hernia, No mass, No audible bowel sounds, No abnormal bowel sounds, No abdominal bruits, No spleenomegaly, No other Rectal: deferred Extremities: No normal range of motion, No non-tender, No normal inspection, No pedal edema, No calf tenderness, No normal capillary refill, No pelvis stable, No calf tenderness, No inflammation, No pedal edema, No slow capillary refill, No swelling, No other, No abrasion, No clubbing, No cyanosis, No ecchymosis, No laceration, No no lower extremity edema bilateral, No significant edema, No tenderness, No wound Neurologic/Psychiatric: no motor/sensory deficits, alert, normal mood/affect, oriented x 3, power is 5/5 both on sides Skin: No normal color, No warm/dry, No cyanosis, No cool, No diaphoresis, No damp, No ecchymosis, No jaundice, No mottled, No pallor, No rash, No tattoos/piercings, No ulcerations, No rash on exposed areas, No ulcerations on exposed areas, No other Data Review Labs Laboratory Tests 04/14/19 04:49: Glucometer 167H 04/14/19 05:05: White Blood Count 8.9, Red Blood Count 4.47, Hemoglobin 11.0L, Hematocrit 36L, Mean Corpuscular Volume 80, Mean Corpuscular Hemoglobin 25, Mean Corpuscular Hemoglobin Concent 31L, Red Cell Distribution Width 15.1H, Platelet Count 230, Mean Platelet Volume 10.6H, Neutrophils (%) (Auto) 64, Lymphocytes (%) (Auto) 23, Monocytes (%) (Auto) 10, Eosinophils (%) (Auto) 3, Basophils (%) (Auto) 1, Neutrophils # (Auto) 5.7, Lymphocytes # (Auto) 2.0, Monocytes # (Auto) 0.9, Eosinophils # (Auto) 0.2, Basophils # (Auto) 0.0, Prothrombin Time 12.1L, INR Comment 0.9, Activated Partial Thromboplast Time 31, Sodium Level 139, Potassium Level 3.9, Chloride Level 96L, Carbon Dioxide Level 25, Anion Gap 18H, Blood Urea Nitrogen 22H, Creatinine 1.14, Estimat Glomerular Filtration Rate > 60, BUN/Creatinine Ratio 19, Glucose Level 171H, Calcium Level 9.4, Corrected Calcium 9.5, Magnesium Level 1.8, Total Bilirubin 0.2, Aspartate Amino Transf (AST/SGOT) 19, Alanine Aminotransferase (ALT/SGPT) 16, Alkaline Phosphatase 77, Troponin I < 0.028, B-Type Natriuretic Peptide 68.5, Total Protein 6.6, Albumin 3.9 04/14/19 06:10: Urine Color YELLOW, Urine Clarity CLEAR, Urine pH 7, Urine Specific Warren 1.010L, Urine Protein 1+H, Urine Glucose (UA) NEGATIVE, Urine Ketones NEGATIVE, Urine Nitrite NEGATIVE, Urine Bilirubin NEGATIVE, Urine Urobilinogen NORMAL, Urine Leukocyte Esterase NEGATIVE, Urine RBC (Auto) NEGATIVE, Urine RBC NONE, Urine WBC NONE, Urine Squamous Epithelial Cells RARE, Urine Crystals PRESENTH, Urine Amorphous Sediment FEW RADHA PHOSPHATEH, Urine Bacteria NEGATIVE, Urine Casts NONE, Urine Mucus SMALLH, Urine Culture Indicated NO 04/14/19 11:03: Glucometer 221H 04/14/19 11:10: Troponin I < 0.028 ECG Impression ECG Initial ECG Rhythm: Normal Sinus A/P-Cardiology Assessment/Admission Diagnosis severe hypertension, CAD, Diabetes Plan patient was given hydralazine in the ER with some improvement. I'll start amlodipine 10 mg daily. request echocardiogram. CAD: Patient will continue his outpatient medications. Diabetes: Defer to the primary team. Thank you for your consultation. Please call me if you have any questions. Kunal Au MD, FACP, FACC, FSCAI, FHRS, CCDS Interventional Cardiology Cardiac Electrophysiology Vascular Medicine and Endovascular Interventions Clinical Quality Measures DVT/VTE Risk/Contraindication: Risk Factor Score Per Nursin RFS Level Per Nursing on Admit: 4+=Very High Trevor AU MD Apr 14, 2019 15:22
[2019-04-14] MEDS: VIT B COMPLEX PO SCH (17:24)
[2019-04-14] MEDS: FOLIC ACID PO SCH (17:24)
[2019-04-14] MEDS ORDERED: NON-FORMULARY MEDICATION 1 EA EA (Magnesium Oxide (Magnesium) 400 MG) PO SCH (18:00)
[2019-04-14] MEDS: MAGNESIUM OXIDE (MAG-OX)400 MG TAB PO SCH (18:14)
[2019-04-14] MEDS: SIMvastatin 20 MG (ZOCOR) TAB PO SCH (18:14)
[2019-04-14] MEDS ORDERED: NON-FORMULARY MEDICATION 1 EA EA (Acetaminophen (Tylenol Extra Strength) 500 MG) PO SCH (21:00)
[2019-04-14] MEDS ORDERED: [UNRECOGNIZED DRUG - OTHER] PO SCH (21:00)
[2019-04-14] MEDS ORDERED: BISOPROLOL FUMARATE PO SCH (21:00)
[2019-04-14] MEDS ORDERED: HCTZ PO SCH (21:00)
[2019-04-14] MEDS: BISOPROLOL/HCTZ 5/6.25 MG (ZIAC) TAB PO SCH (21:10)
[2019-04-14] MEDS: ACETAMINOPHEN 500 MG TAB (TYLENOL) PO SCH (21:11)
[2019-04-14] MEDS: MELATONIN 3 MG TABLET PO SCH (23:09)
[2019-04-15] VITALS (12 sets, daily range): BP systolic 107–158; BP diastolic 49–75
[2019-04-15 03:51] LABS: BASOPHILS % (AUTO) 0 % (0-10); EOSINOPHILS # (AUTO) 0.2 10^3/uL (0.0-0.3); EOSINOPHILS % (AUTO) 2 % (0-10); HEMATOCRIT 38 % (40-54); HEMOGLOBIN 11.8 G/DL (13.3-17.7); LYMPHOCYTES # (AUTO) 2.4 X 10^3 (1.0-4.0); LYMPHOCYTES % (AUTO) 19 % (12-44); MEAN CORPUSCULAR HEMOGLOBIN 24 PG (25-34); MEAN CORPUSCULAR HGB CONC 31 G/DL (32-36); MEAN CORPUSCULAR VOLUME 78 FL (80-99); MEAN PLATELET VOLUME 10.8 FL (7.4-10.4); MONOCYTES # (AUTO) 1.2 X 10^3 (0.0-1.0); MONOCYTES % (AUTO) 10 % (0-12); NEUTROPHILS # (AUTO) 8.6 X 10^3 (1.8-7.8); NEUTROPHILS % (AUTO) 69 % (42-75); PLATELET COUNT 255 10^3/uL (130-400); RED CELL DISTRIBUTION WIDTH 15.5 % (10.0-14.5); WHITE BLOOD COUNT 12.4 10^3/uL (4.3-11.0)
[2019-04-15 04:10] LABS: ALANINE AMINOTRANSFERASE 13 U/L (0-55); ALKALINE PHOSPHATASE 77 U/L (40-136); BILIRUBIN,TOTAL 0.5 MG/DL (0.1-1.0); BUN/CREATININE RATIO 17; CALCIUM 9.8 MG/DL (8.5-10.1); CARBON DIOXIDE 26 MMOL/L (21-32); CHLORIDE 99 MMOL/L (98-107); CREATININE SERUM 1.06 MG/DL (0.60-1.30); GFR ESTIMATED > 60; GLUCOSE 124 MG/DL (70-105); POTASSIUM 3.6 MMOL/L (3.6-5.0); SODIUM 138 MMOL/L (135-145); TOTAL PROTEIN 6.9 GM/DL (6.4-8.2)
[2019-04-15] MEDS: inSUlin ASPART (NovoLOG) 1 UNIT/0.01 ML (CHARGE PER UNIT) SC SCH ×4 (05:43→19:51)
--- NOTE | 2019-04-15 06:51 | Pulmonary Consultation ---
History of Present Illness History of Present Illness Date of Consultation 04/15/19 06:46 Time Seen by Provider: 07:30 Date of Admission History of Present Illness 83yo with hx of CAD, and CAGB presented to ED secondary to MCALLISTER, diaphoresis, LE edema, dizziness, and nausea. HE was found to have HTN urgency with SBP 200. He denies any chest pain or shortness of breath. PT was admitted to ICU for aggressive BP monitoring. Allergies and Home Medications Allergies Coded Allergies: codeine (Verified Adverse Reaction, Mild, SEVERE N/V, 11/07/09) morphine (Unverified Adverse Reaction, Mild, SEVERE N/V, 11/07/09) Home Medications Acetaminophen 500 Mg Tablet, 500 MG PO BID, (Reported) Aspirin 81 Mg Tablet.dr, 81 MG PO DAILY, (Reported) Bisoprolol Fumarate/Hctz 1 Each Tablet, 1 TAB PO BID, (Reported) Cholecalciferol (Vitamin D3) 1,000 Unit Capsule, 1,000 UNIT PO 1800, (Reported) Clobetasol Propionate 15 Gm Cream..g., TOP BID PRN for SPOTS ON HEAD, (Reported) Cod Liver Oil 1 Each Capsule, 1 CAP PO 1800, (Reported) Cyanocobalamin (Vitamin B-12) 1,000 Mcg Tablet, 1,000 MCG PO DAILY, (Reported) Finasteride 5 Mg Tablet, 5 MG PO DAILY, (Reported) Furosemide 20 Mg Tablet, 40 MG PO DAILY, (Reported) TAKES 2 (20MG) TABLETS Glipizide 10 Mg Tablet, 10 MG PO 1200, (Reported) Insulin Glargine,Hum.rec.anlog 100 Unit/1 Ml Insuln.pen, 40 UNITS SC DAILY, (Reported) Insulin Glargine,Hum.rec.anlog 100 Unit/1 Ml Insuln.pen, 30 UNIT SQ HS, (Reported) Levomefolate/B6/B12/Algal Oil 1 Each Capsule, 1 CAP PO BID, (Reported) Levothyroxine Sodium 100 Mcg Tablet, 50 MCG PO DAILY, (Reported) TAKES 1/2 (100MCG) TABLET Lutein 20 Mg Tablet, 20 MG PO DAILY, (Reported) Lycopene 10 Mg Capsule, 10 MG PO 1800, (Reported) Magnesium Oxide 400 Mg Tablet, 400 MG PO 1800, (Reported) Metformin HCl 500 Mg Tablet, 1,000 MG PO BID, (Reported) TAKES 2 (500MG) TABLETS Multivitamin 1 Each Tablet, 1 TAB PO DAILY, (Reported) [place]-3 Fatty Acids/Fish Oil 1 Each Capsule, 1,000 MG PO DAILY, (Reported) Ondansetron HCl 4 Mg Tab, 4 MG PO Q6H PRN for NAUSEA/VOMITING-1ST LINE, (Reported) Potassium Gluconate 99 Mg Tablet, 99 MG PO DAILY, (Reported) Saw/Vit E/Sod Monica/Lyc/Beta/Pyg 1 Each Tablet, 1 TAB PO 1800, (Reported) Simvastatin 20 Mg Tablet, 20 MG PO 1800, (Reported) Tramadol HCl 50 Mg Tablet, 50 MG PO BID, (Reported) Vit A/C/E/Zinc/Selenium/Copper 1 Each Tablet, 1 TAB PO DAILY, (Reported) Zinc Amino Acid Chelate 50 Mg Tablet, 50 MG PO DAILY, (Reported) Past Prrkvdp-Xuiujd-Snpliz Hx Past Med/Social Hx: Reviewed Nursing Past Med/Soc Hx, Reviewed and Corrections made Patient Social History Alcohol Use: Occasionally Uses Recreational Drug Use: No Smoking Status: Former Smoker (QUIT YEARS AGO) Type Used: Cigarettes Recent Foreign Travel: No Contact w/Someone Who Travel: No Recent Infectious Disease Expo: No Recent Hopitalizations: Yes (HX-BACK SURG.) Physical Abuse: No Sexual Abuse: No Mistreated: No Fear: No Immunizations Up To Date Date of Pneumonia Vaccine: Jul 22, 2011 Date of Influenza Vaccine: Jun 22, 2012 Past Medical History Surgeries: Yes (CARDIAC CATHS--S/P CABG; BACK SURGERY X 2; PROSTATE SURGERY) Cardiac, CABG, Orthopedic, Transurethral Resection Respiratory: No Cardiac: Yes Chronic Edema/Swelling, Coronary Artery Disease, High Cholesterol, Hypertension Neurological: No Reproductive Disorders: No Sexually Transmitted Disease: No Genitourinary: Yes Benign Prostatic Hyperpl, Prostate Problems Gastrointestinal: Yes Gastroesophageal Reflux, Hiatal Hernia Musculoskeletal: Yes (BACK SURGERY X 2) Arthritis, Chronic Back Pain Endocrine: Yes Diabetes, Insulin dep, Hypothyroidsim HEENT: Yes Cataract Cancer: No Psychosocial: No Integumentary: No Blood Disorders: No Family Medical History No Pertinent Family Hx Review of Systems Time Seen by Provider: 07:35 Constitutional: Sweats, Malaise; No: Fever, Chills, Weakness, Other Eyes: No: Pain, Vision change, Conjunctivae inflammation, Eyelid inflammation, Other, Redness ENT: No: Ear pain, Ear discharge, Nose pain, Nose discharge, Nose congestion, Mouth pain, Mouth swelling, Throat pain, Throat swelling, Other Respiratory: No: Cough, Dry, Shortness of breath, SOB with excertion, Wheezing, Hemoptysis, Pleuritic Pain, Sputum, Wheezing, Other Sepsis Event Evaluation Height, Weight, BMI Height: 5'8.00" Weight: 187lbs. 0.0oz. 84.026433mi; 28.4 BMI Method:Stated Exam Exam Vital Signs Date Time Temp Pulse Resp B/P (MAP) Pulse Ox O2 Delivery O2 Flow Rate FiO2 04/15/19 06:00 56 125/58 (80) 97 Room Air 04/15/19 05:00 55 136/61 (86) 93 Room Air 04/15/19 04:00 97.8 04/15/19 04:00 59 138/67 (90) 97 Room Air 04/15/19 03:00 55 114/68 (83) 91 Room Air 04/15/19 02:00 55 125/59 (81) 93 Room Air 04/15/19 01:00 60 04/15/19 01:00 60 111/49 (69) 95 Room Air 04/15/19 00:00 98.5 04/15/19 00:00 63 143/57 (85) 96 Room Air 04/15/19 00:00 99 Room Air 04/14/19 23:00 67 156/73 (100) 95 Room Air 04/14/19 22:00 68 161/73 (102) 95 Room Air 04/14/19 21:00 84 22 156/87 (110) 96 Room Air 04/14/19 21:00 99 Room Air 04/14/19 20:12 97.8 04/14/19 20:00 69 9 140/107 (118) 94 Room Air 04/14/19 20:00 99 Room Air 04/14/19 19:00 68 18 164/67 (99) 95 Room Air 04/14/19 19:00 68 04/14/19 16:00 97.4 04/14/19 16:00 66 16 170/78 (108) 95 Room Air 04/14/19 16:00 98 Room Air 04/14/19 13:00 68 04/14/19 12:00 97.0 04/14/19 12:00 58 11 152/62 (92) 97 Room Air 04/14/19 12:00 98 Room Air 04/14/19 11:00 60 16 150/64 (92) 94 Room Air 04/14/19 10:00 64 13 164/73 (103) 97 Room Air 04/14/19 09:00 97 Room Air 04/14/19 09:00 58 10 180/66 (104) 97 Room Air 04/14/19 08:30 65 16 163/70 (101) 97 Room Air 04/14/19 08:00 98 Room Air 04/14/19 08:00 97.4 55 20 174/61 (98) 98 Room Air 04/14/19 07:45 71 31 168/150 (156) 96 Room Air 04/14/19 07:30 66 10 170/74 (106) 97 Room Air 04/14/19 07:15 69 13 150/103 (119) 99 Room Air 04/14/19 07:10 98 Room Air 04/14/19 07:05 67 I & O 04/15/19 07:00 Intake Total 1200 ml Output Total 775 ml Balance 425 ml Height & Weight Height: 5'8.00" Weight: 187lbs. 0.0oz. 84.932357iy; 28.4 BMI Method:Stated General Appearance: No Apparent Distress, WD/WN HEENT: PERRL/EOMI, Normal ENT Inspection, Pharynx Normal Neck: Full Range of Motion, Non Tender, Supple Respiratory: No Accessory Muscle Use, No Respiratory Distress, Decreased Breath Sounds Cardiovascular: Regular Rate, Rhythm, No Edema Capillary Refill: Less Than 3 Seconds Gastrointestinal: normal bowel sounds, non tender, soft Extremity: Normal Capillary Refill, Normal Inspection Neurologic/Psychiatric: Alert, Oriented x3 Skin: Normal Color, Warm/Dry Lymphatic: No Adenopathy Results Lab Laboratory Tests 04/14/19 05:05 04/15/19 03:25 Assessment/Plan Assessment/Plan Malignant HTN/urgency - now much improved and resolved symptoms -BP now improved SBP 150's -Add lisinopril -Troponin neg CAD with hx of CABG -Echo pending Anxiety CP- resolved IDDM -BS controlled Transfer to 4th floor with tele and Q4 vitals. Continue to monitor BP closely SHERRY CANTOR DO Apr 15, 2019 06:51
[2019-04-15] MEDS: LEVOTHYROXINE 50 MCG (LEVOTHROID) TAB PO SCH (06:58)
[2019-04-15] MEDS: FOLIC ACID PO SCH ×2 (06:59→17:52)
[2019-04-15] MEDS: VIT B COMPLEX PO SCH ×2 (06:59→17:52)
[2019-04-15] MEDS: MULTIVIT W/MINERALS TAB (THERAGRAN M) PO SCH (06:59)
[2019-04-15] MEDS: CATHETER FLUSH 10 ML SYR IV SCH ×3 (07:00→23:13)
[2019-04-15] MEDS: lisINopril 20 MG (PRINIVIL) TABLET PO SCH (08:35)
[2019-04-15] MEDS: ASPIRIN E.C. 81 MG (ECOTRIN) TAB PO SCH (08:35)
[2019-04-15] MEDS: KCL 20 MEQ TAB (K-DUR) PO SCH (08:35)
[2019-04-15] MEDS: FINASTERIDE (PROSCAR) 5 MG TAB PO SCH (08:36)
[2019-04-15] MEDS: FUROSEMIDE 20 MG (LASIX) TAB PO SCH (08:36)
[2019-04-15] MEDS: CYANOCOBALAMIN 1,000 MCG (VITAMIN B-12) TABLET PO SCH (08:36)
[2019-04-15] MEDS: BISOPROLOL/HCTZ 5/6.25 MG (ZIAC) TAB PO SCH ×2 (08:37→21:41)
[2019-04-15] MEDS: ACETAMINOPHEN 500 MG TAB (TYLENOL) PO SCH ×2 (08:38→21:37)
[2019-04-15] MEDS ORDERED: LEVOTHYROXINE 100 MCG (LEVOTHROID) TAB PO SCH (09:00)
--- NOTE | 2019-04-15 10:43 | Cardiology Progress Note ---
Cardiology SOAP Progress Note Subjective: Patient denies any significant chest pain. He did complain of mild shortness of breath. Objective: I&O/Vital Signs 04/14/19 04/15/19 04/15/19 04/15/19 23:00 00:00 00:00 00:00 Temp 98.5 Pulse 67 63 B/P (MAP) 156/73 (100) 143/57 (85) Pulse Ox 95 99 96 O2 Delivery Room Air Room Air Room Air 04/15/19 04/15/19 04/15/19 04/15/19 01:00 01:00 02:00 03:00 Pulse 60 60 55 55 B/P (MAP) 111/49 (69) 125/59 (81) 114/68 (83) Pulse Ox 95 93 91 O2 Delivery Room Air Room Air Room Air 04/15/19 04/15/19 04/15/19 04/15/19 04:00 04:00 04:00 05:00 Temp 97.8 Pulse 59 55 B/P (MAP) 138/67 (90) 136/61 (86) Pulse Ox 97 94 93 O2 Delivery Room Air Room Air Room Air 04/15/19 04/15/19 04/15/19 04/15/19 06:00 07:00 08:00 08:00 Pulse 56 64 B/P (MAP) 125/58 (80) 151/75 (100) Pulse Ox 97 94 O2 Delivery Room Air Room Air 04/15/19 09:00 Pulse Ox 99 O2 Delivery Room Air 04/15/19 00:00 Intake Total 1100 ml Output Total 775 ml Balance 325 ml Weight (Pounds): 192 Weight (Ounces): 0.0 Weight (Calculated Kilograms): 87.367558 Constitutional: appears stated age, AAO x 3; No apparent distress; well- developed, well-nourished Respiratory: No accessory muscle use, No respiratory distress, No chest tender, No chest expansion is symmetric; chest is bilaterally symmetric; No lungs clear to percussion; lungs clear to auscultation; No crackles, No rhonchi, No rales, No stridor, No wheezing, No pleural rub, No other Cardiovascular: regular rate-rhythm; No irregularly irregular, No extra beats, No parasternal heave is noted, No JVD, No edema, No bradycardia, No tachycardia, No point of maximal impulse, No cardiac thrills are palpable; S1 and S2; No gallop/S3, No gallop/S4, No diastolic murmur, No systolic murmur, No friction rub, No click, No other Gastrointestional: No tender, No soft, No round, No distended, No pulsatile m ass, No organomegaly, No guarding, No rebound, No tenderness, No hernia, No mass, No audible bowel sounds, No abnormal bowel sounds, No abdominal bruits, No spleenomegaly, No other Extremities: No normal range of motion, No non-tender, No normal inspection, No pedal edema, No calf tenderness, No normal capillary refill, No pelvis stable, No calf tenderness, No inflammation, No pedal edema, No slow capillary refill, No swelling, No other, No abrasion, No clubbing, No cyanosis, No ecchymosis, No laceration, No no lower extremity edema bilateral, No significant edema, No tenderness, No wound Neurologic/Psychiatric: no motor/sensory deficits, alert, normal mood/affect, oriented x 3, power is 5/5 both on sides Skin: No normal color, No warm/dry, No cyanosis, No cool, No diaphoresis, No damp, No ecchymosis, No jaundice, No mottled, No pallor, No rash, No tattoos/piercings, No ulcerations, No rash on exposed areas, No ulcerations on exposed areas, No other Results/Procedures: Labs Laboratory Tests 04/14/19 11:03: Glucometer 221H 04/14/19 11:10: Troponin I < 0.028 04/14/19 20:54: Glucometer 225H 04/15/19 03:25: White Blood Count 12.4H, Red Blood Count 4.85, Hemoglobin 11.8L, Hematocrit 38L, Mean Corpuscular Volume 78L, Mean Corpuscular Hemoglobin 24L, Mean Corpuscular Hemoglobin Concent 31L, Red Cell Distribution Width 15.5H, Platelet Count 255, Mean Platelet Volume 10.8H, Neutrophils (%) (Auto) 69, Lymphocytes (%) (Auto) 19, Monocytes (%) (Auto) 10, Eosinophils (%) (Auto) 2, Basophils (%) (Auto) 0, Neutrophils # (Auto) 8.6H, Lymphocytes # (Auto) 2.4, Monocytes # (Auto) 1.2H, Eosinophils # (Auto) 0.2, Basophils # (Auto) 0.0, Sodium Level 138, Potassium Level 3.6, Chloride Level 99, Carbon Dioxide Level 26, Anion Gap 13, Blood Urea Nitrogen 18, Creatinine 1.06, Estimat Glomerular Filtration Rate > 60, BUN/Creatinine Ratio 17, Glucose Level 124H, Calcium Level 9.8, Corrected Calcium 9.8, Total Bilirubin 0.5, Aspartate Amino Transf (AST/SGOT) 19, Alanine Aminotransferase (ALT/SGPT) 13, Alkaline Phosphatase 77, Total Protein 6.9, Albumin 4.0 A/P: Assessment/Dx: severe hypertension, CAD, Diabetes Plan: Significant improvement in blood pressure management with amlodipine 10 mg daily. Can be discharged to follow with Dr. Ortiz or Kathleen Alfaro WEEK[employer] RECEPTIONIST. CAD: Patient will continue his outpatient medications. Diabetes: Defer to the primary team. Mild shortness of breath. Serial troponin negative. Waiting for a.m. troponin and if negative patient can be discharged. No evidence of congestive heart failure on examination. Thank you for your consultation. Please call me if you have any questions. Kunal Au MD, FACP, FACC, FSCAI, FHRS, CCDS Interventional Cardiology Cardiac Electrophysiology Vascular Medicine and Endovascular Interventions Trevor AU MD Apr 15, 2019 10:42
--- NOTE | 2019-04-15 11:08 | Progress Note - Hospitalist ---
Subjective HPI/CC On Admission Date Seen by Provider: Apr 15, 2019 Time Seen by Provider: 10:00 Chief complaint: Diaphoresis with vague chest pressure. HPI: This is an 83yoWM known to me when I took care of his when I recently four months ago, who the Pt is having real difficulty with grief reaction, presented to the ER after he was woke up this morning at 0300 after a diaphoretic episode. He was found to have malignant hypertension and a history of heart disease in need of risk-stratification. Dr. Au did see the Pt and will evaluate additional testing that will be needed. Norvasc was give of 5 Mg for severe hypertension and will be monitored in closely in the mean time and will evaluate the next step in his care plan. Subjective/Events-last exam Patient transferring down to fourth floor Really wants to go home Spoke with cardiology and he was okay with discharge as long as the troponin did not increase and it did have a bump at 0.055 and it appears that cardiology wou ld like to do a cardiac catheterization tomorrow Has some sort of OCD issue with his supplements that he takes and likely a component of dementia Nurses think he needs to go to a snf instead of assisted living at [place] in a duplex Has a primary care provider appointment Thursday with Dr. Pereira to talk about depression Review of Systems General: Fatigue Objective Exam Vital Signs Vital Signs Date Time Temp Pulse Resp B/P (MAP) Pulse Ox O2 Delivery O2 Flow Rate FiO2 04/15/19 09:00 99 Room Air 04/15/19 08:00 151/75 (100) 04/15/19 07:00 64 04/15/19 04:00 97.8 04/14/19 21:00 22 Capillary Refill : Less Than 3 SecondsLess Than 3 Seconds General Appearance: No Apparent Distress, WD/WN HEENT: PERRL/EOMI, Normal ENT Inspection, Pharynx Normal Neck: Full Range of Motion, Non Tender, Supple Respiratory: No Accessory Muscle Use, No Respiratory Distress, Decreased Breath Sounds Cardiovascular: Regular Rate, Rhythm, No Edema Gastrointestinal: Normal Bowel Sounds, No Organomegaly, No Pulsatile Mass, Non Tender, Soft Back: Normal Inspection, No CVA Tenderness, No Vertebral Tenderness Extremity: Normal Capillary Refill, Normal Inspection Neurologic/Psychiatric: Alert, Oriented x3 Skin: Normal Color, Warm/Dry Lymphatic: No Adenopathy Results/Procedures Lab Laboratory Tests 04/15/19 03:25 Patient resulted labs reviewed. Assessment/Plan Assessment and Plan Assess & Plan/Chief Complaint Assessment: Diaphoresis with chest pain suspicious for acute coronary syndrome Known CAD previous bypass Malignant hypertension with urgency Hyperlipidemia Severe grief reaction Insomnia Slightly elevated troponin 0.055 this morning Plan: Home meds Appreciate cardiology consultation Monitor blood pressure and treat aggressively Elevated troponin per Dr Au Diagnosis/Problems Diagnosis/Problems (1) Hypertensive urgency, malignant Status: Acute (2) Chest pain Status: Acute Qualifiers: Chest pain type: unspecified Qualified Codes: R07.9 - Chest pain, unspecified (3) Diaphoresis Status: Acute (4) Diabetes Status: Chronic Qualifiers: Diabetes mellitus type: type 2 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 transplanted heart: [place] heart Associated angina: without angina Qualified Codes: I25.10 - Atherosclerotic heart disease of [place] coronary artery without angina pectoris (7) Hx of CABG Status: Chronic (8) Grief reaction Status: Chronic Clinical Quality Measures DVT/VTE Risk/Contraindication: Risk Factor Score Per Nursin RFS Level Per Nursing on Admit: 4+=Very High MANOHAR BANSAL DO Apr 15, 2019 11:08
[2019-04-15] MEDS: glipiZIDE 5 MG (GLUCOTROL) TAB PO SCH (12:40)
--- NOTE | 2019-04-15 13:25 | NUR ---
Report received from Marquis HEADLEY. Patient and family in room, patient oriented to room, call light placed within reach. Will assume care of patient.
--- NOTE | 2019-04-15 15:56 | NUR ---
CM/SS, respond to consult and visited with patient's daughter Kaia Rizzo. Patient has established residency with [facility] in a two bedroom duplex [facility]. Spouse in November of this year from dementia and Kaia reports he did well for some time but has recently began to talk about having health problems and be worried about self. 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 Daughters Liza Coker and Kaia are very supportive to patient but offered that he has two other options at [place], a one bedroom duplex or to move inside the main building. Patient will discharge back to his current home, they will continue to explore any housing changes as a family. Additionally, they are going to accompany patient to his upcoming PCP appointment to request assessment for depression and possible Rx to address.
[2019-04-15] MEDS: MAGNESIUM OXIDE (MAG-OX)400 MG TAB PO SCH (17:51)
[2019-04-15] MEDS: SIMvastatin 20 MG (ZOCOR) TAB PO SCH (17:51)
[2019-04-15] MEDS: MELATONIN 3 MG TABLET PO SCH (21:38)
[2019-04-16 00:40] VITALS: BP 144/63
[2019-04-16 03:47] VITALS: BP 137/65
[2019-04-16 05:04] VITALS: BP 133/64
[2019-04-16] MEDS: MULTIVIT W/MINERALS TAB (THERAGRAN M) PO SCH (06:10)
[2019-04-16] MEDS: KCL 20 MEQ TAB (K-DUR) PO SCH (06:10)
[2019-04-16] MEDS: LEVOTHYROXINE 50 MCG (LEVOTHROID) TAB PO SCH (06:10)
[2019-04-16] MEDS: inSUlin ASPART (NovoLOG) 1 UNIT/0.01 ML (CHARGE PER UNIT) SC SCH (06:11)
[2019-04-16] MEDS: FOLIC ACID PO SCH (06:12)
[2019-04-16] MEDS: VIT B COMPLEX PO SCH (06:12)
[2019-04-16] MEDS: CATHETER FLUSH 10 ML SYR IV SCH (06:18)
--- NOTE | 2019-04-16 07:51 | Pulmonary Progress Note ---
Subjective Time Seen by a Provider: 07:51 Subjective/Events-last exam No complications noted. Sepsis Event Evaluation Height, Weight, BMI Height: 5'8.00" Weight: 202lbs. 1.8oz. 91.303567ej; 28.4 BMI Method:Stated Exam Exam Vital Signs Date Time Temp Pulse Resp B/P (MAP) Pulse Ox O2 Delivery O2 Flow Rate FiO2 04/16/19 07:00 56 04/16/19 05:04 97.2 63 18 133/64 (87) 97 Room Air 04/16/19 03:47 98.6 64 18 137/65 (89) 96 Room Air 04/16/19 01:00 54 04/16/19 00:40 98.2 67 20 144/63 (90) 95 Room Air 04/15/19 21:00 Room Air 04/15/19 19:42 97.7 60 18 150/75 (100) 98 Room Air 04/15/19 19:00 76 04/15/19 16:02 97.8 73 17 107/58 (74) 96 Room Air 04/15/19 13:30 Room Air 04/15/19 13:25 97.7 60 20 158/68 (98) 97 Room Air 04/15/19 13:00 64 04/15/19 12:00 139/72 (94) 04/15/19 12:00 94 Room Air 04/15/19 09:00 99 Room Air 04/15/19 08:00 94 Room Air 04/15/19 08:00 151/75 (100) I & O 04/16/19 07:00 Intake Total 1260 ml Balance 1260 ml Height & Weight Height: 5'8.00" Weight: 202lbs. 1.8oz. [id number]; 28.4 BMI Method:Stated General Appearance: No Apparent Distress, WD/WN HEENT: PERRL/EOMI, Normal ENT Inspection, Pharynx Normal Neck: Full Range of Motion, Non Tender, Supple Respiratory: Chest Non Tender, Lungs Clear, Normal Breath Sounds, No Accessory Muscle Use, No Respiratory Distress Cardiovascular: Regular Rate, Rhythm, No Edema, No Gallop Capillary Refill: Less Than 3 Seconds Gastrointestinal: normal bowel sounds, non tender, soft Extremity: Normal Capillary Refill, No Pedal Edema Neurologic/Psychiatric: Alert, Oriented x3 Skin: Normal Color, Warm/Dry Lymphatic: No Adenopathy Results Lab Laboratory Tests 04/15/19 03:25 Assessment/Plan Assessment/Plan S/P Malignant HTN/urgency - now much improved and resolved symptoms -BP now improved SBP 150's -Add lisinopril -Troponin neg CAD with hx of CABG -Echo pending Anxiety CP- resolved IDDM -BS controlled Pt is ok for discharge from pulmonary standpoint. I am going to sign off. Please call with any questions. SHERRY CANTOR DO Apr 16, 2019 07:51
[2019-04-16 08:00] VITALS: BP 155/67
[2019-04-16] MEDS: FUROSEMIDE 20 MG (LASIX) TAB PO SCH (08:41)
[2019-04-16] MEDS: ACETAMINOPHEN 500 MG TAB (TYLENOL) PO SCH (08:41)
[2019-04-16] MEDS: lisINopril 20 MG (PRINIVIL) TABLET PO SCH (08:41)
[2019-04-16] MEDS: BISOPROLOL/HCTZ 5/6.25 MG (ZIAC) TAB PO SCH (08:46)
[2019-04-16] MEDS: CYANOCOBALAMIN 1,000 MCG (VITAMIN B-12) TABLET PO SCH (08:46)
[2019-04-16] MEDS: FINASTERIDE (PROSCAR) 5 MG TAB PO SCH (08:46)
[2019-04-16] MEDS: ASPIRIN E.C. 81 MG (ECOTRIN) TAB PO SCH (08:47)
[2019-04-16] MEDS ORDERED: LISI-552 PO (09:58)
--- NOTE | 2019-04-16 12:35 | Discharge Summary ---
Diagnosis/Chief Complaint Date of Admission Apr 14, 2019 at 06:00 Date of Discharge Apr 16, 2019 at 11:05 Discharge Date: Apr 16, 2019 Admission Diagnosis Assessment: Diaphoresis with chest pain suspicious for acute coronary syndrome Known CAD previous bypass Malignant hypertension with urgency Hyperlipidemia Severe grief reaction Insomnia Plan: Home meds Appreciate cardiology consultation Monitor blood pressure and treat aggressively Discharge Diagnosis (1) Hypertensive urgency, malignant Status: Acute (2) Chest pain Status: Acute (3) Diaphoresis Status: Acute (4) Diabetes Status: Chronic (5) Hyperlipemia Status: Chronic (6) CAD (coronary artery disease) Status: Chronic (7) Hx of CABG Status: Chronic (8) Grief reaction Status: Chronic Discharge Summary Discharge Physical Exam Allergies: Coded Allergies: codeine (Verified Adverse Reaction, Mild, SEVERE N/V, 11/07/09) morphine (Unverified Adverse Reaction, Mild, SEVERE N/V, 11/07/09) Vitals & I&Os Vital Signs Date Time Temp Pulse Resp B/P (MAP) Pulse Ox O2 Delivery O2 Flow Rate FiO2 04/16/19 11:15 04/16/19 09:00 Room Air 04/16/19 08:00 97.8 58 20 97 General Appearance: No Apparent Distress Respiratory: Chest Non Tender, Lungs Clear, Normal Breath Sounds, No Accessory Muscle Use, No Respiratory Distress Cardiovascular: Regular Rate, Rhythm, No Edema, No Gallop, No JVD, No Murmur, Normal Peripheral Pulses Extremity: Normal Inspection, Other (trace bilateral pedal edema) Skin: Normal Color Hospital Course Was the Problem List Reviewed?: Yes HPI: This is an 83yoWM known to me when I took care of his when I recently four months ago, who the Pt is having real difficulty with grief reaction, presented to the ER after he was woke up this morning at 0300 after a diaphoretic episode. He was found to have malignant hypertension and a history of heart disease in need of risk-stratification. Dr. Au did see the Pt and will evaluate additional testing that will be needed. Norvasc was give of 5 Mg for severe hypertension and will be monitored in closely in the mean time and will evaluate the next step in his care plan. patient was admitted to the hospital apparently 1 dose of Norvasc was initiated but then the patient was switched to lisinopril 20 mg daily. He had normalization of blood rusher with no chest pain or shortness of breath. He had one low level troponin elevation 0.055 and cardiology did make the recommendation for catheterization. He refused stating he wanted to go home and considering lack of any other symptoms. Blood pressures normalized quickly with no evidence for end organ damage. Repeat echocardiogram revealed normal systolic function with an estimated ejection fraction 55-65 percent. There was evidence for grade 1 diastolic dysfunction with no evidence for pulmonary hypertension. Did discuss if he was having chest pain shortness of breath that he should return to the hospital/ER for evaluation. Otherwise he has an appointment with Dr. Pereira on Thursday which she is advised to keep any as a future appointment with Dr. MENDES. He will continue lisinopril his only new medication 20 mg daily as well as his other previous medication. Labs (last 24 hrs) Laboratory Tests 04/15/19 15:29: Glucometer 250H 04/15/19 19:34: Glucometer 113H 04/15/19 21:29: Glucometer 139H 04/16/19 00:44: Glucometer 179H 04/16/19 02:57: Glucometer 190H 04/16/19 06:05: Glucometer 154H Patient resulted labs reviewed. Pending Labs Laboratory Tests 04/16/19 06:05: Glucometer 154 Imaging: Reviewed Imaging Films, Reviewed Imaging Report Discussion & Recommendations Discharge Planning: >30 minutes discharge planning Discharge Home Medications: Active Scripts Active Lisinopril 20 Mg Tablet 20 Mg PO DAILY 90 Days Reported Zofran (Ondansetron HCl) 4 Mg Tab 4 Mg PO Q6H PRN Magnesium (Magnesium Oxide) 400 Mg Tablet 400 Mg PO 1800 Lutein 20 Mg Tablet 20 Mg PO DAILY Zinc (Zinc Amino Acid Chelate) 50 Mg Tablet 50 Mg PO DAILY Multivitamins (Multivitamin) 1 Each Tablet 1 Tab PO DAILY Tylenol Extra Strength (Acetaminophen) 500 Mg Tablet 500 Mg PO BID Potassium (Potassium Gluconate) 99 Mg Tablet 99 Mg PO DAILY Basaglar Kwikpen U-100 (Insulin Glargine,Hum.rec.anlog) 100 Unit/1 Ml Insuln.pen 30 Unit SQ HS Vitamin B-12 (Cyanocobalamin (Vitamin B-12)) 1,000 Mcg Tablet 1,000 Mcg PO DAILY Vision Formula Tablet (Vit A/C/E/Zinc/Selenium/Copper) 1 Each Tablet 1 Tab PO DAILY Lycopene 10 Mg Capsule 10 Mg PO 1800 Vitamin D3 (Cholecalciferol (Vitamin D3)) 1,000 Unit Capsule 1,000 Unit PO 1800 Aspirin EC (Aspirin) 81 Mg Tablet.dr 81 Mg PO DAILY Prostate Health Caplet (Saw/Vit E/Sod [place]/Lyc/Beta/Pyg) 1 Each Tablet 1 Tab PO 1800 Cod Liver Oil 1 Each Capsule 1 Cap PO 1800 [place] 3 1,000 mg Softgel ([place]-3 Fatty Acids/Fish Oil) 1 Each Capsule 1,000 Mg PO DAILY Metanx Capsule (Levomefolate/B6/B12/Algal Oil) 1 Each Capsule 1 Cap PO BID Bisoprolol-Hctz 5-6.25 mg Tab (Bisoprolol Fumarate/Hctz) 1 Each Tablet 1 Tab PO BID Basaglar Kwikpen U-100 (Insulin Glargine,Hum.rec.anlog) 100 Unit/1 Ml Insuln.pen 40 Units SC DAILY Furosemide 20 Mg Tablet 40 Mg PO DAILY TAKES 2 (20MG) TABLETS Levothyroxine Sodium 100 Mcg Tablet 50 Mcg PO DAILY TAKES 1/2 (100MCG) TABLET Glipizide 10 Mg Tablet 10 Mg PO 1200 Tramadol HCl 50 Mg Tablet 50 Mg PO BID Clobetasol Propionate 15 Gm Cream..g. TOP BID PRN Finasteride 5 Mg Tablet 5 Mg PO DAILY Simvastatin 20 Mg Tablet 20 Mg PO 1800 Metformin HCl 500 Mg Tablet 1,000 Mg PO BID TAKES 2 (500MG) TABLETS Instructions to patient/family Please see electronic discharge instructions given to patient. Clinical Quality Measures DVT/VTE Risk/Contraindication: Risk Factor Score Per Nursin RFS Level Per Nursing on Admit: 4+=Very High Copy Copies To 1: RADHA PEREIRA MD Copies To 2: JAMES MENDES MD FACP FACC CCDS Problem Qualifiers (1) Chest pain: Chest pain type: unspecified Qualified Codes: R07.9 - Chest pain, unspecified (2) Diabetes: Diabetes mellitus type: type 2 Diabetes mellitus senior living insulin use: unspecified intermodal owner operator truck driver insulin use status Diabetes mellitus complication status: with other specified complication Qualified Codes: E11.69 - Type 2 diabetes mellitus with other specified complication (3) Hyperlipemia: Hyperlipidemia type: mixed hyperlipidemia Qualified Codes: E78.2 - Mixed hyperlipidemia (4) CAD (coronary artery disease): Coronary Disease-Associated Artery/Lesion type: [place] artery [place] vs. transplanted heart: [place] heart Associated angina: without angina Qualified Codes: I25.10 - Atherosclerotic heart disease of [place] coronary artery without angina pectoris ROSALINA KUHN MD Apr 16, 2019 12:35
--- NOTE | 2019-04-20 14:41 | Physician Query Clarification ---
PQ-Intro New Diagnosis Admission/Discharge Admission Date: Apr 14, 2019 at 06:00 Discharge Date: Apr 16, 2019 at 11:05 The medical record reflects the following clinical scenario: History/Risk Factors: Hypertensive urgency, CAD Clinical Findings: diaphoresis and chest pain, Troponin bump 0.55 on 04/15 Treatment: Recommended heart cath Question: What condition best reflects the above clinical scenario? Please document a response in the Progress Noter or Discharge Summary. 1. Type 2 FL 2. Elevated troponin etiology undetermined 3. Other, with explanation of the clinical findings. 4. Clinically undetermined, no explanation for the clinical findings. PHYSICIAN RESPONSE What condition reflects above: Other, explanation/clinical finding Explanation of clincal finding NSTEMI. However, patient refused coronary angiography. Therefore unclear etiology. Please remember a lack of response to the above will prompt a phone page by CDI/Coding staff. In responding to this query, please exercise your independent professional judgment. The purpose of this communication is to more accurately reflect the complexity of your patients condition. The fact that a question is asked does not imply that any particular answer is desired or expected. Thank you for your timely response to this clarification. Requestors name: Isreal THIS PHYSICIAN QUERY FORM IS A PERMANENT PART OF THE MEDICAL RECORD ISREAL MERAZ Apr 20, 2019 14:41 Trevor SHAH MD Apr 21, 2019 00:33
== END 2019-04-16 11:05 | DRG 282 ==
LOC: EDUNIT# 04:29 → ER 04:31 → ICU 06:00 → 4TH 04-15 13:23
PROVIDERS: ADMIT Internal Medicine; ATTEND Internal Medicine
DX: I16.0 Hypertensive urgency (principal); I10 Essential (primary) hypertension; I21.4 Non-ST elevation (NSTEMI) myocardial infarction; R07.9 Chest pain, unspecified; R61 Generalized hyperhidrosis; I25.10 Atherosclerotic heart disease of native coronary artery without angina pectoris; F43.21 Adjustment disorder with depressed mood; E78.00 Pure hypercholesterolemia, unspecified; E11.9 Type 2 diabetes mellitus without complications; G47.00 Insomnia, unspecified; M54.9 Dorsalgia, unspecified; R60.9 Edema, unspecified; E03.9 Hypothyroidism, unspecified; K21.9 Gastro-esophageal reflux disease without esophagitis; K44.9 Diaphragmatic hernia without obstruction or gangrene; M19.91 Primary osteoarthritis, unspecified site; Z79.4 Long term (current) use of insulin; Z95.1 Presence of aortocoronary bypass graft; Z87.891 Personal history of nicotine dependence
CPT/HCPCS: 36415; 71045; 80053; 81000; 82962; 83735; 83880; 84484; 85025; 85610; 85730; 93005; 93041; 93306; 96374

== ENCOUNTER 2019-04-22 13:26 | Outpatient (RCR) | payer MEDICARE ==
[~2019-04-22 13:26] MED LIST changes: +ACET-2267 PO; +ASPI-983 PO; +BISO1TAB3 PO; +CHOL10007 PO; +CLOB15CR2 TOP; +COD1CAPS6 PO; +CYAN-41 PO; +FINA5TAB6 PO; +FURO20TA4 PO; +GLIP10TA13 PO; +INSU100I34 SC; +INSU100I34 SQ; +LEVO100T7 PO; +LEVO1CAP11 PO; +LISI-552 PO; +LYCO10CA2 PO; +MAGN400T39 PO; +METF-397 PO; +MULT1TAB69 PO; +OMEG1CAP58 PO; +ONDN4T PO; +POTA99TA21 PO; +SAW/1TAB2 PO; +SIMV20TA3 PO; +TRAM50TA2 PO; +VIT-10 PO; +ZINC50TA51 PO
== END 2019-04-22 14:13 | disposition home or self-care (01) ==
PROVIDERS: ATTEND Neurological Surgery
DX: M48.061 Spinal stenosis, lumbar region without neurogenic claudication (principal)

== ENCOUNTER → 2019-06-08 | Outpatient (CLI) | payer MEDICARE ==
[~2019-06-08] MED LIST changes: +HOLD METFORMIN - RECEIVED CONTRAST 20 ML VIAL IV SCH; +IOHEXOL 350 MG/ML 100 ML (OMNIPAQUE 350) VIAL IV ONE; +NS 100 ML (IVPB) BAG IV ONE
--- NOTE | 2019-06-08 13:54 | Diagnostic Imaging Report ---
PROCEDURE: CT abdomen and pelvis with contrast, rule out appendicitis. TECHNIQUE: Multiple contiguous axial images were obtained through the abdomen and pelvis after the administration of intravenous contrast. INDICATION: Hematuria and anemia. Comparison is made to prior examination from 08/04/2013. FINDINGS: The heart size is normal. The lung bases are clear. There is a small hiatal hernia. The liver is normal in size without focal lesions. There is cholelithiasis. There is no biliary ductal dilatation. Spleen is normal. The pancreas and adrenal glands are unremarkable. There are tiny bilateral renal cysts. There is no evidence of nephrolithiasis or obstructive uropathy. There is moderate atherosclerotic calcification of the aorta which is nonaneurysmal. Bowel gas pattern is nonspecific. There is no free air. There is no ascites. There are no focal inflammatory changes. There are degenerative and postsurgical changes in the spine. Bladder is normal. There is no pelvic mass or adenopathy. IMPRESSION: Cholelithiasis. Small hiatal hernia. Small bilateral renal cysts however no evidence of nephrolithiasis or obstructive uropathy. No other acute abnormality in the abdomen or pelvis. Dictated by: Dictated on workstation # [id number]
== END ==
LOC: RAD 13:17
PROVIDERS: ATTEND Nurse Practitioner Family
DX: K80.20 Calculus of gallbladder without cholecystitis without obstruction (principal)
CPT/HCPCS: 74177

== ENCOUNTER → 2019-06-08 | Outpatient (CLI) | payer MEDICARE ==
[~2019-06-08] MED LIST changes: -HOLD METFORMIN - RECEIVED CONTRAST 20 ML VIAL IV SCH; -IOHEXOL 350 MG/ML 100 ML (OMNIPAQUE 350) VIAL IV ONE; -NS 100 ML (IVPB) BAG IV ONE
[2019-06-08 11:17] LABS: CREATININE SERUM 1.29 MG/DL (0.60-1.30)
== END ==
LOC: LAB 10:23
PROVIDERS: ATTEND Nurse Practitioner Family
DX: R10.31 Right lower quadrant pain (principal)
CPT/HCPCS: 36415; 82565; 84520

== ENCOUNTER 2019-08-28 10:15 | Emergency (ER) | payer MEDICARE ==
[~2019-08-28] VITALS: Ht 170 cm; Wt 92.5 kg
[~2019-08-28 10:15] MED LIST changes: +COD1CAPS13 PO; -COD1CAPS6 PO; +SIMV20TA26 PO; -SIMV20TA3 PO; -TRAM50TA2 PO; +TRM50T PO
--- NOTE | 2019-08-28 10:58 | ED General ---
General Chief Complaint: Cardiac/General Problems Stated Complaint: ELEVATED BLOOD PRESSURE,NOSE BLEED Nursing Triage Note: Patient ambulatory to ER room 3 with daughter with complaint of elevated BP and a nose bleed this AM. Patient states he was awaken this morning with a bounding feeling in his chest and his blood pressure was elevated. Patient states his nose was also dripping blood. Patient also complained of a headache this morning that resolved after taking his BP meds. Patient denies any chest pain or shortness of breath but states he has been nauseated and feeling of GERD for the last two days. Nursing Sepsis Screen: No Definite Risk Source of Information: Patient, Family Exam Limitations: No Limitations History of Present Illness Date Seen by Provider: Aug 28, 2019 Time Seen by Provider: 10:57 Initial Comments This 84-year-old white male presents with labile hypertension. The patient has been treated with lisinopril and bisoprolol-hctz. His blood pressure will spike most typically in the morning. The patient has had several episodes of epistaxis right sided. Patient has had no fever, chills, photophobia or stiff neck. He has had no lateralizing or localizing neurologic complaints. Patient has been compliant on his antihypertensive medications. This morning the patient's systolic blood pressure was near 200. On arrival to emergency department patient's systolic was 160 with a normal diastolic. Allergies and Home Medications Allergies Coded Allergies: codeine (Verified Adverse Reaction, Mild, SEVERE N/V, 11/07/09) morphine (Unverified Adverse Reaction, Mild, SEVERE N/V, 11/07/09) Home Medications Acetaminophen 500 Mg Tablet, 500 MG PO BID, (Reported) Aspirin 81 Mg Tablet.dr, 81 MG PO DAILY, (Reported) Bisoprolol Fumarate/Hctz 1 Each Tablet, 1 TAB PO BID, (Reported) Cholecalciferol (Vitamin D3) 1,000 Unit Capsule, 1,000 UNIT PO 1800, (Reported) Clobetasol Propionate 15 Gm Cream..g., TOP BID PRN for SPOTS ON HEAD, (Reported) Cod Liver Oil 1 Each Capsule, 1 CAP PO 1800, (Reported) Cyanocobalamin (Vitamin B-12) 1,000 Mcg Tablet, 1,000 MCG PO DAILY, (Reported) Finasteride 5 Mg Tablet, 5 MG PO DAILY, (Reported) Furosemide 20 Mg Tablet, 40 MG PO DAILY, (Reported) TAKES 2 (20MG) TABLETS Glipizide 10 Mg Tablet, 10 MG PO 1200, (Reported) Insulin Glargine,Hum.rec.anlog 100 Unit/1 Ml Insuln.pen, 40 UNITS SC DAILY, (Reported) Insulin Glargine,Hum.rec.anlog 100 Unit/1 Ml Insuln.pen, 30 UNIT SQ HS, (Reported) Levomefolate/B6/B12/Algal Oil 1 Each Capsule, 1 CAP PO BID, (Reported) Levothyroxine Sodium 100 Mcg Tablet, 50 MCG PO DAILY, (Reported) TAKES 1/2 (100MCG) TABLET Lisinopril 20 Mg Tablet, 20 MG PO DAILY Prescribed by: ROSALINA KUHN on 04/16/19 0958 Lutein 20 Mg Tablet, 20 MG PO DAILY, (Reported) Lycopene 10 Mg Capsule, 10 MG PO 1800, (Reported) Magnesium Oxide 400 Mg Tablet, 400 MG PO 1800, (Reported) Metformin HCl 500 Mg Tablet, 1,000 MG PO BID, (Reported) TAKES 2 (500MG) TABLETS Multivitamin 1 Each Tablet, 1 TAB PO DAILY, (Reported) [place]-3 Fatty Acids/Fish Oil 1 Each Capsule, 1,000 MG PO DAILY, (Reported) Ondansetron HCl 4 Mg Tab, 4 MG PO Q6H PRN for NAUSEA/VOMITING-1ST LINE, (Reported) Potassium Gluconate 99 Mg Tablet, 99 MG PO DAILY, (Reported) Saw/Vit E/Sod [place]/Lyc/Beta/Pyg 1 Each Tablet, 1 TAB PO 1800, (Reported) Simvastatin 20 Mg Tablet, 20 MG PO 1800, (Reported) Tramadol HCl 50 Mg Tablet, 50 MG PO BID, (Reported) Vit A/C/E/Zinc/Selenium/Copper 1 Each Tablet, 1 TAB PO DAILY, (Reported) Zinc Amino Acid Chelate 50 Mg Tablet, 50 MG PO DAILY, (Reported) Patient Home Medication List Home Medication List Reviewed: Yes Review of Systems Review of Systems Constitutional: No chills, No fever EENTM: No hearing loss, No vision loss Respiratory: No cough, No short of breath Cardiovascular: No chest pain, No palpitations Gastrointestinal: No constipation, No diarrhea; nausea (patient has had several self-limited episodes of nausea and benign emesis.), vomiting Genitourinary: No dysuria, No frequency Musculoskeletal: No back pain Skin: No change in color, No rash Psychiatric/Neurological: Depressed (patient lost his several months ago and this may be contributing to some of his symptoms. Patient was started on an antidepressant recently by Dr. Pereira.) Hematologic/Lymphatic: No Symptoms Reported Immunological/Allergic: no symptoms reported Past Ryghdtq-Yncqwy-Mjwrke Hx Past Med/Social Hx: Reviewed Nursing Past Med/Soc Hx Patient Social History Alcohol Use: Denies Use Recreational Drug Use: No Smoking Status: Former Smoker Type Used: Cigarettes Former Smoker, Quit: Aug 28, 1989 2nd Hand Smoke Exposure: No Recent Foreign Travel: No Contact w/Someone Who Travel: No Recent Infectious Disease Expo: No Recent Hopitalizations: Yes (HX-BACK SURG.) Physical Abuse: No Sexual Abuse: No Mistreated: No Fear: No Immunizations Up To Date Date of Pneumonia Vaccine: Jul 22, 2017 Date of Influenza Vaccine: Jul 23, 2019 Past Medical History Surgeries: Yes (CARDIAC CATHS--S/P CABG; BACK SURGERY X 2; PROSTATE SURGERY) Cardiac, CABG, Orthopedic, Transurethral Resection Respiratory: No Cardiac: Yes Chronic Edema/Swelling, Coronary Artery Disease, High Cholesterol, Hypertension Neurological: No Reproductive Disorders: No Sexually Transmitted Disease: No Genitourinary: Yes Benign Prostatic Hyperpl, Prostate Problems Gastrointestinal: Yes Gastroesophageal Reflux, Hiatal Hernia Musculoskeletal: Yes (BACK SURGERY X 2) Arthritis, Chronic Back Pain Endocrine: Yes Diabetes, Insulin dep, Hypothyroidsim HEENT: Yes Cataract Cancer: No Psychosocial: No Integumentary: No Blood Disorders: No Family Medical History No Pertinent Family Hx Physical Exam Vital Signs Vital Signs - First Documented 08/28/19 10:22 Temp 36.7 Pulse 58 Resp 16 B/P (MAP) 180/68 (105) Pulse Ox 98 O2 Delivery Room Air Capillary Refill : Less Than 3 Seconds Height, Weight, BMI Height: 5'8.00" Weight: 202lbs. 1.8oz. [id number]; 32.00 BMI Method:Stated General Appearance: No Apparent Distress, WD/WN Eyes: Bilateral Eye Normal Inspection HEENT: Other (there is an area of excoriation in the right nostril.) Neck: Normal Inspection Respiratory: Lungs Clear Cardiovascular: Regular Rate, Rhythm Gastrointestinal: Normal Bowel Sounds, Soft Extremity: Normal Capillary Refill, Normal Inspection Neurologic/Psychiatric: Oriented x3, No Motor/Sensory Deficits, Normal Mood/Affect Skin: Normal Color, Warm/Dry; No Ecchymosis Progress/Results/Core Measures Suspected Sepsis Recent Fever Within 48 Hours: No Infection Criteria Present: None New/Unexplained Altered Menta: No Sepsis Screen: No Definite Risk SIRS Temperature: Pulse: 58 Respiratory Rate: 16 Laboratory Tests 08/28/19 11:03: White Blood Count 9.8 Blood Pressure 180 /68 Mean: 105 Laboratory Tests 08/28/19 11:03: Creatinine 1.27, Platelet Count 260, Total Bilirubin 0.2 Results/Orders Lab Results Laboratory Tests Test 08/28/19 11:03 08/28/19 11:15 Range/Units White Blood Count 9.8 4.3-11.0 10^3/uL Red Blood Count 4.21 L 4.35-5.85 10^6/uL Hemoglobin 10.5 L 13.3-17.7 G/DL Hematocrit 33 L 40-54 % Mean Corpuscular Volume 79 L 80-99 FL Mean Corpuscular Hemoglobin 25 25-34 PG Mean Corpuscular Hemoglobin Concent 32 32-36 G/DL Red Cell Distribution Width 15.0 H 10.0-14.5 % Platelet Count 260 130-400 10^3/uL Mean Platelet Volume 9.8 7.4-10.4 FL Neutrophils (%) (Auto) 69 42-75 % Lymphocytes (%) (Auto) 22 12-44 % Monocytes (%) (Auto) 8 0-12 % Eosinophils (%) (Auto) 2 0-10 % Basophils (%) (Auto) 0 0-10 % Neutrophils # (Auto) 6.7 1.8-7.8 X 10^3 Lymphocytes # (Auto) 2.2 1.0-4.0 X 10^3 Monocytes # (Auto) 0.8 0.0-1.0 X 10^3 Eosinophils # (Auto) 0.2 0.0-0.3 10^3/uL Basophils # (Auto) 0.0 0.0-0.1 10^3/uL Sodium Level 134 L 135-145 MMOL/L Potassium Level 4.7 3.6-5.0 MMOL/L Chloride Level 96 L 98-107 MMOL/L Carbon Dioxide Level 24 21-32 MMOL/L Anion Gap 14 5-14 MMOL/L Blood Urea Nitrogen 20 H 7-18 MG/DL Creatinine 1.27 0.60-1.30 MG/DL Estimat Glomerular Filtration Rate 54 BUN/Creatinine Ratio 16 Glucose Level 231 H 70-105 MG/DL Calcium Level 9.2 8.5-10.1 MG/DL Corrected Calcium 9.3 8.5-10.1 MG/DL Total Bilirubin 0.2 0.1-1.0 MG/DL Aspartate Amino Transf (AST/SGOT) 23 5-34 U/L Alanine Aminotransferase (ALT/SGPT) 19 0-55 U/L Alkaline Phosphatase 91 40-136 U/L Troponin I < 0.028 <0.028 NG/ML Total Protein 6.6 6.4-8.2 GM/DL Albumin 3.9 3.2-4.5 GM/DL Urine Color YELLOW Urine Clarity CLEAR Urine pH 5.5 5-9 Urine Specific [place] 1.010 L 1.016-1.022 Urine Protein NEGATIVE NEGATIVE Urine Glucose (UA) NEGATIVE NEGATIVE Urine Ketones NEGATIVE NEGATIVE Urine Nitrite NEGATIVE NEGATIVE Urine Bilirubin NEGATIVE NEGATIVE Urine Urobilinogen 0.2 < = 1.0 MG/DL Urine Leukocyte Esterase NEGATIVE NEGATIVE Urine RBC (Auto) NEGATIVE NEGATIVE Urine RBC NONE /HPF Urine WBC NONE /HPF Urine Crystals NONE /LPF Urine Bacteria TRACE /HPF Urine Casts NONE /LPF Urine Mucus NEGATIVE /LPF Urine Culture Indicated NO My Orders Orders - ROSALINA PORTER MD Cbc With Automated Diff (08/28/19 10:52) Comprehensive Metabolic Panel (08/28/19 10:52) Ua Culture If Indicated (08/28/19 10:52) Ekg Tracing (08/28/19 10:52) Troponin I (08/28/19 10:52) Chest 1 View, Ap/Pa Only (08/28/19 10:52) Thyroid Stimulating Hormone (08/28/19 11:56) Vital Signs/I&O 08/28/19 10:22 Temp 36.7 Pulse 58 Resp 16 B/P (MAP) 180/68 (105) Pulse Ox 98 O2 Delivery Room Air Capillary Refill : Less Than 3 Seconds Blood Pressure Mean: 105 POS Progress Note : Time: 12:12 Progress Note The patient's laboratory evaluation, EKG, and chest x-ray were essentially unremarkable. At the end of the patient's evaluation his blood pressure had normalized to 138/80. I discussed the possibility of anxiety as a possible contributor to the patient's intermittent elevated blood pressure measurements as he has lost his within the last year. Both patient and the daughter thought that a trial of a small amount of Xanax 0.25 mg to be taken when the patient measures an elevated reading might be helpful to his evaluation and treatment. I see followed by Dr. Pereira who is out of town for 2 weeks. In the interim I gave the patient 10 0.25 mg tablets of Xanax as trial for his intermittent elevated blood pressure. I agree to return if any problems or questions arose Departure Impression Primary Impression: Hypertension Qualified Codes: I10 - Essential (primary) hypertension Disposition: HOME, SELF-CARE Condition: Improved Departure-Patient Inst. Decision time for Depature: 12:14 Referrals: RADHA PEREIRA MD (PCP) Primary Care Physician Patient Instructions: High Blood Pressure (DC) Add. Discharge Instructions: Trial of Xanax for times when your blood pressure is elevated. Follow-up Dr. Pereira. Return if any problems or questions. All discharge instructions reviewed with patient and/or family. Voiced understanding. Scripts Alprazolam (Xanax) 0.25 Mg Tablet 0.25 MG PO Q6H PRN for AGITATION, #10 TAB Prov: ROSALINA PORTER MD 08/28/19 ROSALINA PORTER MD Aug 28, 2019 10:57 POS
[2019-08-28 11:09] LABS: BASOPHILS % (AUTO) 0 % (0-10); EOSINOPHILS # (AUTO) 0.2 10^3/uL (0.0-0.3); EOSINOPHILS % (AUTO) 2 % (0-10); HEMATOCRIT 33 % (40-54); HEMOGLOBIN 10.5 G/DL (13.3-17.7); LYMPHOCYTES # (AUTO) 2.2 X 10^3 (1.0-4.0); LYMPHOCYTES % (AUTO) 22 % (12-44); MEAN CORPUSCULAR HEMOGLOBIN 25 PG (25-34); MEAN CORPUSCULAR HGB CONC 32 G/DL (32-36); MEAN CORPUSCULAR VOLUME 79 FL (80-99); MEAN PLATELET VOLUME 9.8 FL (7.4-10.4); MONOCYTES # (AUTO) 0.8 X 10^3 (0.0-1.0); MONOCYTES % (AUTO) 8 % (0-12); NEUTROPHILS # (AUTO) 6.7 X 10^3 (1.8-7.8); NEUTROPHILS % (AUTO) 69 % (42-75); PLATELET COUNT 260 10^3/uL (130-400); WHITE BLOOD COUNT 9.8 10^3/uL (4.3-11.0)
[2019-08-28 11:24] LABS: BILIRUBIN,URINE NEGATIVE (NEGATIVE); CLARITY,URINE CLEAR; COLOR,URINE YELLOW; GLUCOSE, URINE (UA) NEGATIVE (NEGATIVE); KETONES,URINE NEGATIVE (NEGATIVE); LEUKOCYTE ESTERASE ,URINE NEGATIVE (NEGATIVE); NITRITE,URINE NEGATIVE (NEGATIVE); PH,URINE 5.5 (5-9); PROTEIN,URINE NEGATIVE (NEGATIVE)
[2019-08-28 11:27] LABS: ALANINE AMINOTRANSFERASE 19 U/L (0-55); ALBUMIN 3.9 GM/DL (3.2-4.5); ALKALINE PHOSPHATASE 91 U/L (40-136); BILIRUBIN,TOTAL 0.2 MG/DL (0.1-1.0); BUN/CREATININE RATIO 16; CALCIUM 9.2 MG/DL (8.5-10.1); CARBON DIOXIDE 24 MMOL/L (21-32); CHLORIDE 96 MMOL/L (98-107); CREATININE SERUM 1.27 MG/DL (0.60-1.30); GFR ESTIMATED 54; GLUCOSE 231 MG/DL (70-105); POTASSIUM 4.7 MMOL/L (3.6-5.0); SODIUM 134 MMOL/L (135-145); TOTAL PROTEIN 6.6 GM/DL (6.4-8.2)
[2019-08-28 11:30] LABS: BACTERIA,URINE TRACE /HPF
--- NOTE | 2019-08-28 11:35 | Diagnostic Imaging Report ---
CLINICAL INDICATION: Patient with elevated blood pressure. Exam: Portable chest x-ray upright view. Comparisons: Chest x-ray dated 04/14/2019. Findings: Lungs/pleura: Lungs are clear. There is no pneumothorax. There is no pleural effusion. Mediastinum: Unremarkable. Pulmonary vasculature: Unremarkable. Heart: Heart size is within normal limits for portable projection. Stable postoperative change to the chest consistent with CABG with sternotomy wires and mediastinal clips. Bones/extrathoracic soft tissue: There are hypertrophic spurs involving the thoracic spine. Impression: 1: Stable chest x-ray exam with no interval radiographic evidence of acute cardiopulmonary process. 2: Stable postoperative change to the chest consistent with CABG. Dictated by: Dictated on workstation # [id number]
[2019-08-28] MEDS ORDERED: ALPR0.25 PO (12:17)
[2019-08-28 12:22] VITALS: BP 131/79
--- OUTSIDE RECORDS SUMMARY | 2019-09-22 18:44 | XMS REPORT | Continuity of Care Document ---
Author Organization Unknown Address Unknown Phone Unavailable Allergies Active Description Code Type Severity Reaction Onset Reported/Identified Relationship to Patient Clinical Status Yes codeine [id number] Drug Allergy Mild SEVERE N/V 11/07/2009 Yes morphine [id number] Drug Allergy Mild SEVERE N/V 11/07/2009 Medications There is no data. 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 04/09/2012 Ot V57.89 ESTELLA ABILITATION PROC NEC 06/26/2012 Ot 250.00 GOGO B LEVI WO COMPL, TYPE II OR UNSPEC TY 06/26/2012 Ot 401.9 HYPE RTENSION NOS 06/26/2012 Ot 530.81 ESO PHAGEAL REFLUX 06/26/2012 Ot 599.70 HEM ATURIA, UNSPECIFIED 06/26/2012 Ot 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 06/26/2012 Ot 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 60 07/04/2015 TEODORA LUCAS, RADHA R Ot 724. 2 07/16/2015 TEODORA LUCAS, RADHA R Ot 724. 2 07/26/2015 Ot 722.52 07/26/2015 Ot 250.00 07/26/2015 Ot 272.4 07/26/2015 Ot 401.9 07/26/2015 Ot 786.09 07/26/2015 Ot 786.09 07/26/2015 Ot 789.01 07/26/2015 Ot 789.09 07/26/2015 Ot 789.01 07/26/2015 Ot 791.9 07/26/2015 Ot 721.2 07/26/2015 Ot V72.84 07/26/2015 DEYA LUCAS, RONDA Ot V72.84 07/26/2015 RONDA FALK MD Ot V72.84 07/26/2015 [place] LUCAS, JESSIE Nagel Ot 599.7 0 07/26/2015 TEODORA LUCAS, RADHA R Ot 490 07/26/2015 TEODORA LUCAS, RADHA R Ot 780. 60 07/26/2015 TEODORA LUCAS, RADHA R Ot 724. 2 10/30/2015 Ot 250.00 10/30/2015 Ot 272.4 10/30/2015 Ot 401.9 10/30/2015 Ot 786.09 10/30/2015 Ot 786.09 10/30/2015 Ot 789.01 10/30/2015 Ot 789.09 10/30/2015 Ot 789.01 10/30/2015 Ot 791.9 10/30/2015 Ot 721.2 10/30/2015 Ot V72.84 10/30/2015 DEYA LUCAS, RONDA Ot V72.84 10/30/2015 DEYA LUCAS, RONDA Ot V72.84 10/30/2015 [place] LUCAS, JESSIE A Ot 599.7 0 10/30/2015 TEODORA LUCAS, RADHA R Ot 490 10/30/2015 TEODORA LUCAS, RADHA R Ot 780. 60 10/30/2015 TEODORA LUCAS, RADHA R Ot 724. 2 11/15/2015 TEODORA LUCAS, RADHA R Ot R07. 89 11/26/2015 TEODORA LUCAS, RADHA R Ot R07. 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 60 FEVER, UNSPECIFIED 07/01/2016 TEODORA LUCAS, RADHA R Ot 724. 2 LUMBAGO 07/01/2016 TEODORA LUCAS, RADHA R Ot R07. 89 OTHER CHEST PAIN 07/01/2016 CINTHYA LUCAS FACTriny, ALI FACP CCDS Ot I25.10 ATHSCL HEART DISEASE OF [place] CORONARY 07/02/2016 CINTHYA LUCAS FACC, ALI FACP CCDS Ot I25.10 ATHSCL HEART DISEASE OF [place] CORONARY 07/02/2016 CINTHYA LUCAS FACC, ALI FACP CCDS Ot I73.9 PERIPHERAL VASCULAR DISEASE, UNSPECIFIED 07/02/2016 CINTHYA LUCAS FACTriny, ALI FACP CCDS Ot R06.02 SHORTNESS OF BREATH 07/04/2016 CINTHYA LUCAS FACC, ALI FACP CCDS Ot I25.10 ATHSCL HEART DISEASE OF [place] CORONARY 07/04/2016 CINTHYA LUCAS FACC, ALI FACP CCDS Ot R06.02 SHORTNESS OF BREATH 07/07/2016 CINTHYA LUCAS FACC, ALI FACP CCDS Ot I25.10 ATHSCL HEART DISEASE OF [place] CORONARY 07/07/2016 CINTHYA LUCAS FACC, ALI FACP CCDS Ot I73.9 PERIPHERAL VASCULAR DISEASE, UNSPECIFIED 07/07/2016 CINTHYA LUCAS FACC, ALI FACP CCDS Ot R06.02 SHORTNESS OF BREATH 07/07/2016 CINTHYA LUCAS FACC, ALI FACP CCDS Ot I25.10 ATHSCL HEART DISEASE OF [place] CORONARY 07/07/2016 CINTHYA LUCAS FACC, ALI FACP CCDS Ot R06.02 SHORTNESS OF BREATH 07/22/2016 CINTHYA LUCAS FACC, ALI FACP CCDS Ot I25.10 ATHSCL HEART DISEASE OF [place] CORONARY 07/22/2016 CINTHYA LUCAS FACC, ALI FACP CCDS Ot I73.9 PERIPHERAL VASCULAR DISEASE, UNSPECIFIED 07/22/2016 CINTHYA LUCAS FACC, ALI FACP CCDS Ot R06.02 SHORTNESS OF BREATH 07/24/2016 CINTHYA LUCAS FACC, ALI FACP CCDS Ot I25.10 ATHSCL HEART DISEASE OF [place] CORONARY 07/24/2016 CINTHYA LUCAS FACC, ALI FACP CCDS Ot R06.02 SHORTNESS OF BREATH 07/31/2016 CINTHYA LUCAS FACC, ALI FACP CCDS Ot I25.10 ATHSCL HEART DISEASE OF [place] CORONARY 07/31/2016 CINTHYA LUCAS FACC, ALI FACP CCDS Ot I73.9 PERIPHERAL VASCULAR DISEASE, UNSPECIFIED 07/31/2016 CINTHYA REYNAC, ALI FACP CCDS Ot R06.02 SHORTNESS OF BREATH 07/31/2016 CINTHYA REYNAC, ALI FACP CCDS Ot I25.10 ATHSCL HEART DISEASE OF [place] CORONARY 07/31/2016 CINTHYA LUCAS FACC, ALI FACP CCDS Ot R06.02 SHORTNESS OF BREATH 08/13/2016 CINTHYA REYNAC, ALI FACP CCDS Ot I73.9 PERIPHERAL VASCULAR DISEASE, UNSPECIFIED 08/13/2016 CINTHYA MD FACC, ALI FACP CCDS Ot E11.9 TYPE 2 DIABETES MELLITUS WITHOUT COMPLIC 08/13/2016 CINTHYA LUCAS FACC, ALI FACP CCDS Ot I10 ESSENTIAL (PRIMARY) HYPERTENSION 08/13/2016 CINTHYA REYNAC, ALI FACP CCDS Ot I25.10 ATHSCL HEART DISEASE OF [place] CORONARY 08/13/2016 CINTHYA LUCAS FACC, ALI FACP CCDS Ot I73.9 PERIPHERAL VASCULAR DISEASE, UNSPECIFIED 08/13/2016 CINTHYA LUCAS FACC, ALI FACP CCDS Ot Z87.891 PERSONAL HISTORY OF NICOTINE DEPENDENCE 09/03/2016 CINTHYA LUCAS FACC, ALI FACP CCDS Ot E11.9 TYPE 2 DIABETES MELLITUS WITHOUT COMPLIC 09/03/2016 CINTHYA LUCAS FACC, ALI FACP CCDS Ot I10 ESSENTIAL (PRIMARY) HYPERTENSION 09/03/2016 CINTHYA LUCAS FACC, ALI FACP CCDS Ot I25.10 ATHSCL HEART DISEASE OF [place] CORONARY 09/03/2016 CINTHYA LUCAS FACC, ALI FACP CCDS Ot I73.9 PERIPHERAL VASCULAR DISEASE, UNSPECIFIED 09/03/2016 CINTHYA LUCAS FACC, ALI FACP CCDS Ot Z87.891 PERSONAL HISTORY OF NICOTINE DEPENDENCE 09/10/2016 CINTHYA LUCAS FACC, ALI FACP CCDS Ot E11.9 TYPE 2 DIABETES MELLITUS WITHOUT COMPLIC 09/10/2016 CINTHYA LUCAS FACC, ALI FACP CCDS Ot I10 ESSENTIAL (PRIMARY) HYPERTENSION 09/10/2016 CINTHYA REYNAC, ALI FACP CCDS Ot I25.10 ATHSCL HEART DISEASE OF [place] CORONARY 09/10/2016 CINTHYA REYNAC, ALI FACP CCDS Ot I73.9 PERIPHERAL VASCULAR DISEASE, UNSPECIFIED 09/10/2016 CINTHYA REYNAC, ALI FACP CCDS Ot Z87.891 PERSONAL HISTORY OF NICOTINE DEPENDENCE 03/05/2017 TEODORA LUCAS, RADHA R Ot M48. 06 SPINAL STENOSIS, LUMBAR REGION 03/26/2017 RADHA ARAIZA MD R Ot M48. 06 SPINAL STENOSIS, LUMBAR REGION 04/03/2017 RADHA ARAIZA MD R Ot M48. 06 SPINAL STENOSIS, LUMBAR REGION 01/15/2018 Ot V72.84 EXA M PRE- OPERATIVE NOS 01/15/2018 DEYA LUCAS, RONDA Ot V72.84 EXAM PRE-OPERATIVE NOS 01/15/2018 DEYA LUCAS, RONDA Ot V72.84 EXAM PRE-OPERATIVE NOS 01/15/2018 [place] LUCAS, JESSIE A Ot 599.7 0 HEMATURIA, UNSPECIFIED 01/15/2018 TEODORA LUCAS, RADHA R Ot 490 BRONCHITIS NOS 01/15/2018 TEODORA LUCAS, RADHA R Ot 780. 60 FEVER, UNSPECIFIED 01/15/2018 TEODORA LUCAS, RADHA R Ot 724. 2 LUMBAGO 01/15/2018 TEODORA LUCAS, RADHA R Ot R07. 89 OTHER CHEST PAIN 01/15/2018 CINTHYA LUCAS FACC, ALI FACP CCDS Ot I25.10 ATHSCL HEART DISEASE OF [place] CORONARY 01/15/2018 CINTHYA LUCAS FACC, ALI FACP CCDS Ot R06.02 SHORTNESS OF BREATH 01/15/2018 CINTHYA LUCAS FACC, ALI FACP CCDS Ot I25.10 ATHSCL HEART DISEASE OF [place] CORONARY 01/15/2018 CINTHYA LUCAS FACC, ALI FACP CCDS Ot I73.9 PERIPHERAL VASCULAR DISEASE, UNSPECIFIED 01/15/2018 CINTHYA LUCAS FACTriny, ALI FACP CCDS Ot R06.02 SHORTNESS OF BREATH 01/15/2018 CINTHYA LUCAS FACC, ALI FACP CCDS Ot E11.9 TYPE 2 DIABETES MELLITUS WITHOUT COMPLIC 01/15/2018 CINTHYA LUCAS FACC, ALI FACP CCDS Ot I10 ESSENTIAL (PRIMARY) HYPERTENSION 01/15/2018 CINTHYA LUCAS FACC, ALI FACP CCDS Ot I25.10 ATHSCL HEART DISEASE OF [place] CORONARY 01/15/2018 CINTHYA LUCAS FACC, ALI FACP CCDS Ot I73.9 PERIPHERAL VASCULAR DISEASE, UNSPECIFIED 01/15/2018 CINTHYA LUCAS FACC, ALI FACP CCDS Ot Z87.891 PERSONAL HISTORY OF NICOTINE DEPENDENCE 01/15/2018 TEODORA LUCAS, RADHA R Ot M48. 06 SPINAL STENOSIS, LUMBAR REGION 01/20/2018 CINTHYA LUCAS FACC, ALI FACP CCDS Ot E11.9 TYPE 2 DIABETES MELLITUS WITHOUT COMPLIC 01/20/2018 CINTHYA LUCAS FACC, ALI FACP CCDS Ot E66.8 OTHER OBESITY 01/20/2018 CINTHYA REYNAC, ALI FACP CCDS Ot I25.10 ATHSCL HEART DISEASE OF [place] CORONARY 01/20/2018 CINTHYA LUCAS FACC, ALI FACP CCDS Ot R06.02 SHORTNESS OF BREATH 02/09/2018 CINTHYA LUCAS FACTriny, ALI FACP CCDS Ot E11.9 TYPE 2 DIABETES MELLITUS WITHOUT COMPLIC 02/09/2018 CINTHYA REYNAC, ALI FACP CCDS Ot E66.8 OTHER OBESITY 02/09/2018 CINTHYA LUCAS FACC, ALI FACP CCDS Ot I25.10 ATHSCL HEART DISEASE OF [place] CORONARY 02/09/2018 CINTHYA LUCAS FACC, ALI FACP CCDS Ot R06.02 SHORTNESS OF BREATH 02/10/2018 BAIMA, DORIAN L CURRICULUM DESIGNER Ot E78.5 HYPERLIPIDEMIA, UNSPECIFIED 02/10/2018 BAIMA, DORIAN L CURRICULUM DESIGNER Ot I 10 ESSENTIAL (PRIMARY) HYPERTENSION 02/10/2018 BAIMA, DORIAN L CURRICULUM DESIGNER Ot I25.10 ATHSCL HEART DISEASE OF [place] CORONARY 02/10/2018 BAIMA, DORIAN L CURRICULUM DESIGNER Ot R06.02 SHORTNESS OF BREATH 02/10/2018 BAIMA, DORIAN L CURRICULUM DESIGNER Ot R06.2 WHEEZING 02/17/2018 CINTHYA LUCAS FACC, ALI FACP CCDS Ot E11.9 TYPE 2 DIABETES MELLITUS WITHOUT COMPLIC 02/17/2018 CINTHYA LUCAS FACC, ALI FACP CCDS Ot E66.8 OTHER OBESITY 02/17/2018 CINTHYA LUCAS FACC, ALI FACP CCDS Ot I25.10 ATHSCL HEART DISEASE OF [place] CORONARY 02/17/2018 CINTHYA LUCAS FACC, ALI FACP CCDS Ot R06.02 SHORTNESS OF BREATH 02/24/2018 RONDA FALK MD Ot V72.84 EXAM PRE-OPERATIVE NOS 02/24/2018 RONDA FALK MD Ot V72.84 EXAM PRE-OPERATIVE NOS 02/24/2018 [place] LUCAS, JESSIE A Ot 599.7 0 HEMATURIA, UNSPECIFIED 02/24/2018 JESUS ARAIZA MDYD R Ot 490 BRONCHITIS NOS 02/24/2018 TEODORA LUCAS, RADHA R Ot 780. 60 FEVER, UNSPECIFIED 02/24/2018 TEODORA LUCAS RADHA R Ot 724. 2 LUMBAGO 02/24/2018 TEODORA LUCAS RADHA R Ot R07. 89 OTHER CHEST PAIN 02/24/2018 CINTHYA MD FACC, ALI FACP CCDS Ot I25.10 ATHSCL HEART DISEASE OF [place] CORONARY 02/24/2018 CINTHYA LUCAS FACC, ALI FACP CCDS Ot R06.02 SHORTNESS OF BREATH 02/24/2018 CINTHYA LUCAS FACC, ALI FACP CCDS Ot I25.10 ATHSCL HEART DISEASE OF [place] CORONARY 02/24/2018 CINTHYA LUCAS FACC, ALI FACP CCDS Ot I73.9 PERIPHERAL VASCULAR DISEASE, UNSPECIFIED 02/24/2018 CINTHYA LUCAS FACC, ALI FACP CCDS Ot R06.02 SHORTNESS OF BREATH 02/24/2018 CINTHYA LUCAS FACC, ALI FACP CCDS Ot E11.9 TYPE 2 DIABETES MELLITUS WITHOUT COMPLIC 02/24/2018 CINTHYA LUCAS FACC, ALI FACP CCDS Ot I10 ESSENTIAL (PRIMARY) HYPERTENSION 02/24/2018 CINTHYA LUCAS FACC, ALI FACP CCDS Ot I25.10 ATHSCL HEART DISEASE OF [place] CORONARY 02/24/2018 CINTHYA LUCAS FACC, ALI FACP CCDS Ot I73.9 PERIPHERAL VASCULAR DISEASE, UNSPECIFIED 02/24/2018 CINTHYA LUCAS FACC, ALI FACP CCDS Ot Z87.891 PERSONAL HISTORY OF NICOTINE DEPENDENCE 02/24/2018 TEODORA LUCAS, RADHA R Ot M48. 06 SPINAL STENOSIS, LUMBAR REGION 02/24/2018 CINTHYA LUCAS FACC, ALI FACP CCDS Ot E11.9 TYPE 2 DIABETES MELLITUS WITHOUT COMPLIC 02/24/2018 CINTHYA LUCAS FACC, ALI FACP CCDS Ot E66.8 OTHER OBESITY 02/24/2018 CINTHYA LUCAS FACC, ALI FACP CCDS Ot I25.10 ATHSCL HEART DISEASE OF [place] CORONARY 02/24/2018 CINTHYA LUCAS FACC, ALI FACP CCDS Ot R06.02 SHORTNESS OF BREATH 02/24/2018 BAIMA, DORIAN L CURRICULUM DESIGNER Ot E78.5 HYPERLIPIDEMIA, UNSPECIFIED 02/24/2018 BAIMA, DORIAN L CURRICULUM DESIGNER Ot I 10 ESSENTIAL (PRIMARY) HYPERTENSION 02/24/2018 BAIMA, DORIAN L CURRICULUM DESIGNER Ot I25.10 ATHSCL HEART DISEASE OF [place] CORONARY 02/24/2018 BAIMA, DORIAN L CURRICULUM DESIGNER Ot R06.02 SHORTNESS OF BREATH 02/24/2018 BAIMA, DORIAN L CURRICULUM DESIGNER Ot R06.2 WHEEZING 02/25/2018 MARIO MASCORRO OPHTHALMIC LENS INSPECTOR Ot J 22 UNSPECIFIED ACUTE LOWER RESPIRATORY INFE 03/03/2018 BAIMA, DORIAN L CURRICULUM DESIGNER Ot E78.5 HYPERLIPIDEMIA, UNSPECIFIED 03/03/2018 BAIMA, DORIAN L CURRICULUM DESIGNER Ot I 10 ESSENTIAL (PRIMARY) HYPERTENSION 03/03/2018 BAIMA, DORIAN L CURRICULUM DESIGNER Ot I25.10 ATHSCL HEART DISEASE OF [place] CORONARY 03/03/2018 BAIMA, DORIAN L CURRICULUM DESIGNER Ot R06.02 SHORTNESS OF BREATH 03/03/2018 BAIMA, DORIAN L CURRICULUM DESIGNER Ot R06.2 WHEEZING 03/10/2018 BAIMA, DORIAN L CURRICULUM DESIGNER Ot E78.5 HYPERLIPIDEMIA, UNSPECIFIED 03/10/2018 BAIMA, DORIAN L CURRICULUM DESIGNER Ot I 10 ESSENTIAL (PRIMARY) HYPERTENSION 03/10/2018 BAIMA, DORIAN L CURRICULUM DESIGNER Ot I25.10 ATHSCL HEART DISEASE OF [place] CORONARY 03/10/2018 BAIMA, DORIAN L CURRICULUM DESIGNER Ot R06.02 SHORTNESS OF BREATH 03/10/2018 BAIMA, DORIAN L CURRICULUM DESIGNER Ot R06.2 WHEEZING 03/17/2018 MARIO MASCORRO OPHTHALMIC LENS INSPECTOR Ot J 22 UNSPECIFIED ACUTE LOWER RESPIRATORY INFE 03/23/2018 MARIO MASCORRO OPHTHALMIC LENS INSPECTOR Ot J 22 UNSPECIFIED ACUTE LOWER RESPIRATORY INFE 06/16/2018 DEYA LUCAS, RONDA Ot V72.84 EXAM PRE-OPERATIVE NOS 06/16/2018 RONDA FALK MD Ot V72.84 EXAM PRE-OPERATIVE NOS 06/16/2018 [place] LUCAS, JESSIE A Ot 599.7 0 HEMATURIA, UNSPECIFIED 06/16/2018 TEODORA LUCAS, RADHA R Ot 490 BRONCHITIS NOS 06/16/2018 TEODORA LUCAS, RADHA R Ot 780. 60 FEVER, UNSPECIFIED 06/16/2018 TEODORA LUCAS, RADHA R Ot 724. 2 LUMBAGO 06/16/2018 TEODORA LUCAS, RADHA R Ot R07. 89 OTHER CHEST PAIN 06/16/2018 CINTHYA LUCAS FACTriny, ALI FACP CCDS Ot I25.10 ATHSCL HEART DISEASE OF [place] CORONARY 06/16/2018 CINTHYA LUCAS FACTriny, ALI FACP CCDS Ot R06.02 SHORTNESS OF BREATH 06/16/2018 CINTHYA LUCAS FACC, ALI FACP CCDS Ot I25.10 ATHSCL HEART DISEASE OF [place] CORONARY 06/16/2018 CINTHYA LUCAS FACC, ALI FACP CCDS Ot I73.9 PERIPHERAL VASCULAR DISEASE, UNSPECIFIED 06/16/2018 CINTHYA LUCAS FACC, ALI FACP CCDS Ot R06.02 SHORTNESS OF BREATH 06/16/2018 CINTHYA LUCAS FACC, ALI FACP CCDS Ot E11.9 TYPE 2 DIABETES MELLITUS WITHOUT COMPLIC 06/16/2018 CINTHYA LUCAS FACC, ALI FACP CCDS Ot I10 ESSENTIAL (PRIMARY) HYPERTENSION 06/16/2018 CINTHYA LUCAS FACC, ALI FACP CCDS Ot I25.10 ATHSCL HEART DISEASE OF [place] CORONARY 06/16/2018 CINTHYA LUCAS FACTriny, ALI FACP CCDS Ot I73.9 PERIPHERAL VASCULAR DISEASE, UNSPECIFIED 06/16/2018 CINTHYA LUCAS FACC, ALI FACP CCDS Ot Z87.891 PERSONAL HISTORY OF NICOTINE DEPENDENCE 06/16/2018 TEODORA LUCAS, RADHA R Ot M48. 06 SPINAL STENOSIS, LUMBAR REGION 06/16/2018 CINTHYA LUCAS FAC, ALI FACP CCDS Ot E11.9 TYPE 2 DIABETES MELLITUS WITHOUT COMPLIC 06/16/2018 CINTHYA LUCAS FACC, ALI FACP CCDS Ot E66.8 OTHER OBESITY 06/16/2018 CINTHYA LUCAS FAC, ALI FACP CCDS Ot I25.10 ATHSCL HEART DISEASE OF [place] CORONARY 06/16/2018 CINTHYA LUCAS FACC, ALI FACP CCDS Ot R06.02 SHORTNESS OF BREATH 06/16/2018 BAIMA, DORIAN L CURRICULUM DESIGNER Ot E78.5 HYPERLIPIDEMIA, UNSPECIFIED 06/16/2018 BAIMA, DORIAN L CURRICULUM DESIGNER Ot I 10 ESSENTIAL (PRIMARY) HYPERTENSION 06/16/2018 BAIMA, DORIAN L CURRICULUM DESIGNER Ot I25.10 ATHSCL HEART DISEASE OF [place] CORONARY 06/16/2018 BAIMA, DORIAN L CURRICULUM DESIGNER Ot R06.02 SHORTNESS OF BREATH 06/16/2018 BAIMA, DORIAN L CURRICULUM DESIGNER Ot R06.2 WHEEZING 06/16/2018 MARIO MASCORRO APRN Ot J 22 UNSPECIFIED ACUTE LOWER RESPIRATORY INFE 06/17/2018 BAIMA, DORIAN L CURRICULUM DESIGNER Ot I25.10 ATHSCL HEART DISEASE OF [place] CORONARY 06/17/2018 BAIMA, DORIAN L CURRICULUM DESIGNER Ot R06.02 SHORTNESS OF BREATH 07/06/2018 DORIAN ERAZO CURRICULUM DESIGNER Ot I25.10 ATHSCL HEART DISEASE OF [place] CORONARY 07/06/2018 DORIAN ERAZO CURRICULUM DESIGNER Ot I34.0 NONRHEUMATIC MITRAL (VALVE) INSUFFICIENC 07/06/2018 DORIAN ERAZO CURRICULUM DESIGNER Ot R06.02 SHORTNESS OF BREATH 08/11/2018 TEODORA LUCAS RADHA R Ot M48.061 SPINAL STENOSIS, LUMBAR REGION WITHOUT N 08/11/2018 TEODORA LUCAS, RADHA R Ot M99. 73 CONN TISS AND DISC STENOS OF INTVRT FORA 08/11/2018 TEODORA LUCAS, RADHA R Ot Z98. 1 ARTHRODESIS STATUS 09/02/2018 TEODORA LUCAS RADHA R Ot M48.061 SPINAL STENOSIS, LUMBAR REGION WITHOUT N 09/02/2018 TEODORA LUCAS, RADHA R Ot M99. 73 CONN TISS AND DISC STENOS OF INTVRT FORA 09/02/2018 TEODORA LUCAS RADHA R Ot Z98. 1 ARTHRODESIS STATUS 12/29/2018 DEYA LUCAS, RONDA Ot V72.84 EXAM PRE-OPERATIVE NOS 12/29/2018 DEYA LUCAS TAKAAIRINA Ot V72.84 EXAM PRE-OPERATIVE NOS 12/29/2018 [place] LUCAS, JESSIE Nagel Ot 599.7 0 HEMATURIA, UNSPECIFIED 12/29/2018 TEODORA LUCAS, RADHA R Ot 490 BRONCHITIS NOS 12/29/2018 TEODORA LUCAS, RADHA R Ot 780. 60 FEVER, UNSPECIFIED 12/29/2018 TEODORA LUCAS, RADHA R Ot 724. 2 LUMBAGO 12/29/2018 TEODORA LUCAS, RADHA R Ot R07. 89 OTHER CHEST PAIN 12/29/2018 CINTHYA LUCAS FACC, ALI FACP CCDS Ot I25.10 ATHSCL HEART DISEASE OF [place] CORONARY 12/29/2018 CINTHYA LUCAS FACC, ALI FACP CCDS Ot R06.02 SHORTNESS OF BREATH 12/29/2018 CINTHYA LUCAS FACC, ALI FACP CCDS Ot I25.10 ATHSCL HEART DISEASE OF [place] CORONARY 12/29/2018 CINTHYA LUCAS FACC, ALI FACP CCDS Ot I73.9 PERIPHERAL VASCULAR DISEASE, UNSPECIFIED 12/29/2018 CINTHYA LUCAS FACC, ALI FACP CCDS Ot R06.02 SHORTNESS OF BREATH 12/29/2018 CINTHYA LUCAS [facility], ALI FACP CCDS Ot E11.9 TYPE 2 DIABETES MELLITUS WITHOUT COMPLIC 12/29/2018 CINTHYA LUCAS [facility], ALI FACP CCDS Ot I10 ESSENTIAL (PRIMARY) HYPERTENSION 12/29/2018 CINTHYA LUCAS [facility], ALI FACP CCDS Ot I25.10 ATHSCL HEART DISEASE OF [place] CORONARY 12/29/2018 CINTHYA LUCAS [facility], ALI FACP CCDS Ot I73.9 PERIPHERAL VASCULAR DISEASE, UNSPECIFIED 12/29/2018 CINTHYA LUCAS [facility], ALI FACP CCDS Ot Z87.891 PERSONAL HISTORY OF NICOTINE DEPENDENCE 12/29/2018 TEODORA LUCAS, RADHA Xiong Ot M48. 06 SPINAL STENOSIS, LUMBAR REGION 12/29/2018 CINTHYA LUCAS [facility], ALI FACP CCDS Ot E11.9 TYPE 2 DIABETES MELLITUS WITHOUT COMPLIC 12/29/2018 CINTHYA LUCAS [facility], ALI FACP CCDS Ot E66.8 OTHER OBESITY 12/29/2018 CINTHYA LUCAS [facility], ALI FACP CCDS Ot I25.10 ATHSCL HEART DISEASE OF [place] CORONARY 12/29/2018 CINTHYA LUCAS [facility], ALI FACP CCDS Ot R06.02 SHORTNESS OF BREATH 12/29/2018 BAIMA, DORIAN L CURRICULUM DESIGNER Ot E78.5 HYPERLIPIDEMIA, UNSPECIFIED 12/29/2018 BAIMA, DORIAN L CURRICULUM DESIGNER Ot I 10 ESSENTIAL (PRIMARY) HYPERTENSION 12/29/2018 BAIMA, DORIAN L CURRICULUM DESIGNER Ot I25.10 ATHSCL HEART DISEASE OF [place] CORONARY 12/29/2018 BAIMA, DORIAN L CURRICULUM DESIGNER Ot R06.02 SHORTNESS OF BREATH 12/29/2018 BAIMA, DORIAN L CURRICULUM DESIGNER Ot R06.2 WHEEZING 12/29/2018 MARIO MASCORRO OPHTHALMIC LENS INSPECTOR Ot J 22 UNSPECIFIED ACUTE LOWER RESPIRATORY INFE 12/29/2018 BAIMA, DORIAN L CURRICULUM DESIGNER Ot I25.10 ATHSCL HEART DISEASE OF [place] CORONARY 12/29/2018 BAIMA, DORIAN L CURRICULUM DESIGNER Ot I34.0 NONRHEUMATIC MITRAL (VALVE) INSUFFICIENC 12/29/2018 BAIMA, DORIAN L CURRICULUM DESIGNER Ot R06.02 SHORTNESS OF BREATH 12/29/2018 RADHA ARAIZA MD Ot M48.061 SPINAL STENOSIS, LUMBAR REGION WITHOUT N 12/29/2018 RADHA ARAIZA MD Ot M99. 73 CONN TISS AND DISC STENOS OF INTVRT FORA 12/29/2018 RADHA ARAIZA MD Ot Z98. 1 ARTHRODESIS STATUS 12/29/2018 CINTHYA LUCAS FACC, ALI FACP CCDS Ot R42 DIZZINESS AND GIDDINESS 12/31/2018 CINTHYA REYNAC, ALI FACP CCDS Ot E11.9 TYPE 2 DIABETES MELLITUS WITHOUT COMPLIC 12/31/2018 CINTHYA REYNAC, ALI FACP CCDS Ot E78.5 HYPERLIPIDEMIA, UNSPECIFIED 12/31/2018 CINTHYA REYNAC, ALI FACP CCDS Ot I10 ESSENTIAL (PRIMARY) HYPERTENSION 12/31/2018 CINTHYA LUCAS FACC, ALI FACP CCDS Ot I25.10 ATHSCL HEART DISEASE OF [place] CORONARY 12/31/2018 CINTHYA LUCAS [facility], ALI FACP CCDS Ot I77.9 DISORDER OF ARTERIES AND ARTERIOLES, UNS 12/31/2018 CINTHYA REYNA, ALI FACP CCDS Ot K21.9 GASTRO-ESOPHAGEAL REFLUX DISEASE WITHOUT 12/31/2018 CINTHYA LUCAS [facility], ALI FACP CCDS Ot M79.89 OTHER SPECIFIED SOFT TISSUE DISORDERS 12/31/2018 CINTHYA LUCAS FACC, ALI FACP CCDS Ot R42 DIZZINESS AND GIDDINESS 01/05/2019 CINTHYA LUCAS [facility], ALI FACP CCDS Ot E11.9 TYPE 2 DIABETES MELLITUS WITHOUT COMPLIC 01/05/2019 CINTHYA REYNA, ALI FACP CCDS Ot E78.5 HYPERLIPIDEMIA, UNSPECIFIED 01/05/2019 CINTHYA LUCAS [facility], ALI FACP CCDS Ot I10 ESSENTIAL (PRIMARY) HYPERTENSION 01/05/2019 CINTHYA REYNA, ALI FACP CCDS Ot I25.10 ATHSCL HEART DISEASE OF [place] CORONARY 01/05/2019 CINTHYA REYNA, ALI FACP CCDS Ot I77.9 DISORDER OF ARTERIES AND ARTERIOLES, UNS 01/05/2019 CINTHYA REYNA, ALI FACP CCDS Ot K21.9 GASTRO-ESOPHAGEAL REFLUX DISEASE WITHOUT 01/05/2019 CINTHYA REYNAC, ALI FACP CCDS Ot M79.89 OTHER SPECIFIED SOFT TISSUE DISORDERS 01/05/2019 CINTHYA MD FACC, ALI FACP CCDS Ot R42 DIZZINESS AND GIDDINESS 01/05/2019 DEYA LUCAS, RONDA Ot V72.84 EXAM PRE-OPERATIVE NOS 01/05/2019 VIRGINIA LUCAS, JESSIE A Ot 599.7 0 HEMATURIA, UNSPECIFIED 01/05/2019 TEODORA LUCAS, RADHA R Ot 490 BRONCHITIS NOS 01/05/2019 TEODORA LUCAS, RADHA R Ot 780. 60 FEVER, UNSPECIFIED 01/05/2019 TEODORA LUCAS, RADHA R Ot 724. 2 LUMBAGO 01/05/2019 TEODORA LUCAS, RADHA R Ot R07. 89 OTHER CHEST PAIN 01/05/2019 CINTHYA LUCAS FACC, ALI FACP CCDS Ot I25.10 ATHSCL HEART DISEASE OF [place] CORONARY 01/05/2019 CINTHYA REYNAC, ALI FACP CCDS Ot R06.02 SHORTNESS OF BREATH 01/05/2019 CINTHYA LUCAS FACC, ALI FACP CCDS Ot I25.10 ATHSCL HEART DISEASE OF [place] CORONARY 01/05/2019 CINTHYA LUCAS FACC, ALI FACP CCDS Ot I73.9 PERIPHERAL VASCULAR DISEASE, UNSPECIFIED 01/05/2019 CINTHYA LUCAS FACC, ALI FACP CCDS Ot R06.02 SHORTNESS OF BREATH 01/05/2019 CINTHYA LUCAS FACC, ALI FACP CCDS Ot E11.9 TYPE 2 DIABETES MELLITUS WITHOUT COMPLIC 01/05/2019 CINTHYA LUCAS FACC, ALI FACP CCDS Ot I10 ESSENTIAL (PRIMARY) HYPERTENSION 01/05/2019 CINTHYA LUCAS FACC, ALI FACP CCDS Ot I25.10 ATHSCL HEART DISEASE OF [place] CORONARY 01/05/2019 CINTHYA REYNAC, ALI FACP CCDS Ot I73.9 PERIPHERAL VASCULAR DISEASE, UNSPECIFIED 01/05/2019 CINTHYA LUCAS FACC, ALI FACP CCDS Ot Z87.891 PERSONAL HISTORY OF NICOTINE DEPENDENCE 01/05/2019 TEODORA LUCAS, RADHA R Ot M48. 06 SPINAL STENOSIS, LUMBAR REGION 01/05/2019 CINTHYA REYNAC, ALI FACP CCDS Ot E11.9 TYPE 2 DIABETES MELLITUS WITHOUT COMPLIC 01/05/2019 CINTHYA LUCAS FACC, ALI FACP CCDS Ot E66.8 OTHER OBESITY 01/05/2019 CINTHYA REYNAC, ALI FACP CCDS Ot I25.10 ATHSCL HEART DISEASE OF [place] CORONARY 01/05/2019 CINTHYA LUCAS FACC, ALI FACP CCDS Ot R06.02 SHORTNESS OF BREATH 01/05/2019 KVNGDORIAN GARCIA L CURRICULUM DESIGNER Ot E78.5 HYPERLIPIDEMIA, UNSPECIFIED 01/05/2019 KVNGJOSE, DORIAN L CURRICULUM DESIGNER Ot I 10 ESSENTIAL (PRIMARY) HYPERTENSION 01/05/2019 BAIMA, DORIAN L CURRICULUM DESIGNER Ot I25.10 ATHSCL HEART DISEASE OF [place] CORONARY 01/05/2019 BAIMA DORIAN L CURRICULUM DESIGNER Ot R06.02 SHORTNESS OF BREATH 01/05/2019 KVNGJOSE DORIAN L CURRICULUM DESIGNER Ot R06.2 WHEEZING 01/05/2019 MARIO MASCORRO APRN Ot J 22 UNSPECIFIED ACUTE LOWER RESPIRATORY INFE 01/05/2019 KACEY DORIAN L CURRICULUM DESIGNER Ot I25.10 ATHSCL HEART DISEASE OF [place] CORONARY 01/05/2019 KVNGJOSE DORIAN L CURRICULUM DESIGNER Ot I34.0 NONRHEUMATIC MITRAL (VALVE) INSUFFICIENC 01/05/2019 DORIAN ERAZO L CURRICULUM DESIGNER Ot R06.02 SHORTNESS OF BREATH 01/05/2019 TEODORA LUCAS, RADHA R Ot M48.061 SPINAL STENOSIS, LUMBAR REGION WITHOUT N 01/05/2019 TEODORA LUCAS, RADHA R Ot M99. 73 CONN TISS AND DISC STENOS OF INTVRT FORA 01/05/2019 TEODORA LUCAS, RADHA R Ot Z98. 1 ARTHRODESIS STATUS 01/05/2019 CINTHYA LUCAS FACC, ALI FACP CCDS Ot E11.9 TYPE 2 DIABETES MELLITUS WITHOUT COMPLIC 01/05/2019 CINTHYA LUCAS FACC, ALI FACP CCDS Ot E78.5 HYPERLIPIDEMIA, UNSPECIFIED 01/05/2019 CINTHYA LUCAS FACC, ALI FACP CCDS Ot I10 ESSENTIAL (PRIMARY) HYPERTENSION 01/05/2019 CINTHYA LUCAS FACC, ALI FACP CCDS Ot I25.10 ATHSCL HEART DISEASE OF [place] CORONARY 01/05/2019 CINTHYA LUCAS FACC, ALI FACP CCDS Ot I77.9 DISORDER OF ARTERIES AND ARTERIOLES, UNS 01/05/2019 CINTHYA LUCAS FACC, ALI FACP CCDS Ot K21.9 GASTRO-ESOPHAGEAL REFLUX DISEASE WITHOUT 01/05/2019 CINTHYA LUCAS FACC, ALI FACP CCDS Ot M79.89 OTHER SPECIFIED SOFT TISSUE DISORDERS 01/05/2019 CINTHYA LUCAS FAC, ALI FACP CCDS Ot R42 DIZZINESS AND GIDDINESS 01/12/2019 RENE LUCAS, BRITNEY A Ot M48.061 SPINAL STENOSIS, LUMBAR REGION WITHOUT N 01/12/2019 RENE LUCAS, DEVANGYLON A Ot M54.5 LOW BACK PAIN 01/26/2019 CINTHYA LUCAS FACC, ALI FACP CCDS Ot E11.9 TYPE 2 DIABETES MELLITUS WITHOUT COMPLIC 01/26/2019 CINTHYA LUCAS FAC, ALI FACP CCDS Ot E78.5 HYPERLIPIDEMIA, UNSPECIFIED 01/26/2019 CINTHYA LUCAS FACC, ALI FACP CCDS Ot I10 ESSENTIAL (PRIMARY) HYPERTENSION 01/26/2019 CINTHYA LUCAS FAC, ALI FACP CCDS Ot I25.10 ATHSCL HEART DISEASE OF [place] CORONARY 01/26/2019 CINTHYA LUCAS FAC, ALI FACP CCDS Ot I77.9 DISORDER OF ARTERIES AND ARTERIOLES, UNS 01/26/2019 CINTHYA LUCAS FAC, ALI FACP CCDS Ot K21.9 GASTRO-ESOPHAGEAL REFLUX DISEASE WITHOUT 01/26/2019 CINTHYA LUCAS [facility], ALI FACP CCDS Ot M79.89 OTHER SPECIFIED SOFT TISSUE DISORDERS 01/26/2019 CINTHYA LUCAS FAC, ALI FACP CCDS Ot R42 DIZZINESS AND GIDDINESS 02/10/2019 RENE LUCAS, BRITNEY A Ot M48.061 SPINAL STENOSIS, LUMBAR REGION WITHOUT N 02/10/2019 RENE LUCAS, BRITNEY A Ot M54.5 LOW BACK PAIN 02/17/2019 RENE LUCAS, DEVANGYLON A Ot M48.061 SPINAL STENOSIS, LUMBAR REGION WITHOUT N 02/17/2019 RENE LUCAS, DEVANGYLON A Ot M54.5 LOW BACK PAIN 04/05/2019 RENE LUCAS, DEVANGYLON A Ot M48.061 SPINAL STENOSIS, LUMBAR REGION WITHOUT N 04/05/2019 RENE LUCAS, BRITNEY A Ot M54.5 LOW BACK PAIN 04/07/2019 RADHA ARAIZA MD R Ot 490 BRONCHITIS NOS 04/07/2019 TEODORA LUCAS, RADHA R Ot 780. 60 FEVER, UNSPECIFIED 04/07/2019 RADHA ARAIZA MD R Ot 724. 2 LUMBAGO 04/07/2019 SEGLIE MD, RADHA R Ot R07. 89 OTHER CHEST PAIN 04/07/2019 CINTHYA LUCAS FACC, ALI FACP CCDS Ot I25.10 ATHSCL HEART DISEASE OF [place] CORONARY 04/07/2019 CINTHYA LUCAS FACC, ALI FACP CCDS Ot R06.02 SHORTNESS OF BREATH 04/07/2019 CINTHYA LUCAS FACC, ALI FACP CCDS Ot I25.10 ATHSCL HEART DISEASE OF [place] CORONARY 04/07/2019 CINTHYA LUCAS FACC, ALI FACP CCDS Ot I73.9 PERIPHERAL VASCULAR DISEASE, UNSPECIFIED 04/07/2019 CINTHYA LUCAS FACC, ALI FACP CCDS Ot R06.02 SHORTNESS OF BREATH 04/07/2019 CINTHYA LUCAS FACC, ALI FACP CCDS Ot E11.9 TYPE 2 DIABETES MELLITUS WITHOUT COMPLIC 04/07/2019 CINTHYA LUCAS FACTriny, ALI FACP CCDS Ot I10 ESSENTIAL (PRIMARY) HYPERTENSION 04/07/2019 CINTHYA LUCAS FACC, ALI FACP CCDS Ot I25.10 ATHSCL HEART DISEASE OF [place] CORONARY 04/07/2019 CINTHYA LUCAS FACC, ALI FACP CCDS Ot I73.9 PERIPHERAL VASCULAR DISEASE, UNSPECIFIED 04/07/2019 CINTHYA LUCAS FACTriny, ALI FACP CCDS Ot Z87.891 PERSONAL HISTORY OF NICOTINE DEPENDENCE 04/07/2019 TEODORA LUCAS, RADHA R Ot M48. 06 SPINAL STENOSIS, LUMBAR REGION 04/07/2019 CINTHYA LUCAS FACC, ALI FACP CCDS Ot E11.9 TYPE 2 DIABETES MELLITUS WITHOUT COMPLIC 04/07/2019 CINTHYA LUCAS FACC, ALI FACP CCDS Ot E66.8 OTHER OBESITY 04/07/2019 CINTHYA LUCAS FACC, ALI FACP CCDS Ot I25.10 ATHSCL HEART DISEASE OF [place] CORONARY 04/07/2019 CINTHYA LUCAS FACC, ALI FACP CCDS Ot R06.02 SHORTNESS OF BREATH 04/07/2019 BAIMA, DORIAN L CURRICULUM DESIGNER Ot E78.5 HYPERLIPIDEMIA, UNSPECIFIED 04/07/2019 BAIMA, DORIAN L CURRICULUM DESIGNER Ot I 10 ESSENTIAL (PRIMARY) HYPERTENSION 04/07/2019 BAIMA, DORIAN L CURRICULUM DESIGNER Ot I25.10 ATHSCL HEART DISEASE OF [place] CORONARY 04/07/2019 BAIMA, DORIAN L CURRICULUM DESIGNER Ot R06.02 SHORTNESS OF BREATH 04/07/2019 BAIMA, DORIAN L CURRICULUM DESIGNER Ot R06.2 WHEEZING 04/07/2019 SUBHAMARIO R OPHTHALMIC LENS INSPECTOR Ot J 22 UNSPECIFIED ACUTE LOWER RESPIRATORY INFE 04/07/2019 KVNGDORIAN GARCIA Clive CURRICULUM DESIGNER Ot I25.10 ATHSCL HEART DISEASE OF [place] CORONARY 04/07/2019 DORIAN ERAZO CURRICULUM DESIGNER Ot I34.0 NONRHEUMATIC MITRAL (VALVE) INSUFFICIENC 04/07/2019 DORIAN ERAZO CURRICULUM DESIGNER Ot R06.02 SHORTNESS OF BREATH 04/07/2019 TEODORA LUCAS, RADHA R Ot M48.061 SPINAL STENOSIS, LUMBAR REGION WITHOUT N 04/07/2019 TEODORA LUCAS, RADHA R Ot M99. 73 CONN TISS AND DISC STENOS OF INTVRT [place] 04/07/2019 TEODORA LUCAS, RADHA R Ot Z98. 1 ARTHRODESIS STATUS 04/07/2019 CINTHYA LUCAS FACC, ALI FACP CCDS Ot E11.9 TYPE 2 DIABETES MELLITUS WITHOUT COMPLIC 04/07/2019 CINTHYA LUCAS FACC, ALI FACP CCDS Ot E78.5 HYPERLIPIDEMIA, UNSPECIFIED 04/07/2019 CINTHYA LUCAS FACC, ALI FACP CCDS Ot I10 ESSENTIAL (PRIMARY) HYPERTENSION 04/07/2019 CINTHYA LUCAS FACC, ALI FACP CCDS Ot I25.10 ATHSCL HEART DISEASE OF [place] CORONARY 04/07/2019 CINTHYA LUCAS FACC, ALI FACP CCDS Ot I77.9 DISORDER OF ARTERIES AND ARTERIOLES, UNS 04/07/2019 CINTHYA LUCAS FACC, ALI FACP CCDS Ot K21.9 GASTRO-ESOPHAGEAL REFLUX DISEASE WITHOUT 04/07/2019 CINTHYA LUCAS FACC, ALI FACP CCDS Ot M79.89 OTHER SPECIFIED SOFT TISSUE DISORDERS 04/07/2019 CINTHYA LUCAS FACC, ALI FACP CCDS Ot R42 DIZZINESS AND GIDDINESS 04/07/2019 RENE LUCAS, BRITNEY A Ot M48.061 SPINAL STENOSIS, LUMBAR REGION WITHOUT N 04/07/2019 RENE LUCAS, DEVANGYLON A Ot M54.5 LOW BACK PAIN 04/07/2019 RENE LUCAS, BRITNEY A Ot M48.061 SPINAL STENOSIS, LUMBAR REGION WITHOUT N 04/07/2019 RENE LUCAS, BRITNEY A Ot M54.5 LOW BACK PAIN 04/11/2019 DEVANG LÓPEZ MDYLON A Ot M48.061 SPINAL STENOSIS, LUMBAR REGION WITHOUT N 04/11/2019 RENE LUCAS, BRITNEY Nagel Ot M54.5 LOW BACK PAIN 04/15/2019 BANSAL DO, MANOHAR Ot E03.9 HYPOTHYROIDISM, UNSPECIFIED 04/15/2019 BANSAL DO, MANOHAR Ot E11.9 TYPE 2 DIABETES MELLITUS WITHOUT COMPLIC 04/15/2019 BANSAL DO, MANOHAR Ot E78.00 PURE HYPERCHOLESTEROLEMIA, UNSPECIFIED 04/15/2019 BANSAL DO, MANOHAR Ot 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 04/15/2019 BANSAL DO, MANOHAR Ot G47.00 INSOMNIA, UNSPECIFIED 04/15/2019 BANSAL DO, MANOHAR Ot I10 ESSENTIAL (PRIMARY) HYPERTENSION 04/15/2019 BANSAL DO, MANOHAR Ot I16.0 HYPERTENSIVE URGENCY 04/15/2019 BANSAL DO, MANOHAR Ot I25.10 ATHSCL HEART DISEASE OF [place] CORONARY 04/15/2019 BANSAL DO, MANOHAR Ot K21.9 GASTRO-ESOPHAGEAL REFLUX DISEASE WITHOUT 04/15/2019 BANSAL DO, MANOHAR Ot K44.9 DIAPHRAGMATIC HERNIA WITHOUT OBSTRUCTION 04/15/2019 BANSAL DO, MANOHAR Ot M19.91 PRIMARY OSTEOARTHRITIS, UNSPECIFIED SITE 04/15/2019 ROLF DO MANOHAR Ot M54.9 DORSALGIA, UNSPECIFIED 04/15/2019 BANSAL DO MANOHAR Ot R07.9 CHEST PAIN, UNSPECIFIED 04/15/2019 BANSAL DO MANOHAR Ot R60.9 EDEMA, UNSPECIFIED 04/15/2019 BANSAL DO, MANOHAR Ot R61 GENERALIZED HYPERHIDROSIS 04/15/2019 ROLF RUSHING MANOHAR Ot Z79.4 RETIREMENT (CURRENT) USE OF INSULIN 04/15/2019 ROLF RUSHING MANOHAR Ot Z87.89 1 PERSONAL HISTORY OF NICOTINE DEPENDENCE 04/15/2019 ROLF RUSHING MANOHAR Ot Z95.1 PRESENCE OF AORTOCORONARY BYPASS GRAFT 04/16/2019 ROLF RUSHING MANOHAR Ot E03.9 HYPOTHYROIDISM, UNSPECIFIED 04/16/2019 BANSAL DO, MANOHAR Ot E11.9 TYPE 2 DIABETES MELLITUS WITHOUT COMPLIC 04/16/2019 BANSAL DO, MANOHAR Ot E78.00 PURE HYPERCHOLESTEROLEMIA, UNSPECIFIED 04/16/2019 BANSAL DO MANOHAR Ot 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 04/16/2019 ROLF RUSHING MANOHAR Ot G47.00 INSOMNIA, UNSPECIFIED 04/16/2019 ROLF RUSHING MANOHAR Ot I10 ESSENTIAL (PRIMARY) HYPERTENSION 04/16/2019 ROLF RUSHING MANOHAR Ot I16.0 HYPERTENSIVE URGENCY 04/16/2019 ROLF RUSHING MANOHAR Ot I25.10 ATHSCL HEART DISEASE OF [place] CORONARY 04/16/2019 ROLF RUSHING MANOHAR Ot K21.9 GASTRO-ESOPHAGEAL REFLUX DISEASE WITHOUT 04/16/2019 ROLF RUSHING MANOHAR Ot K44.9 DIAPHRAGMATIC HERNIA WITHOUT OBSTRUCTION 04/16/2019 ROLF RUSHING MANOHAR Ot M19.91 PRIMARY OSTEOARTHRITIS, UNSPECIFIED SITE 04/16/2019 ROLF RUSHING MANOHAR Ot M54.9 DORSALGIA, UNSPECIFIED 04/16/2019 ROLF RUSHING MANOHAR Ot R07.9 CHEST PAIN, UNSPECIFIED 04/16/2019 ROLF RUSHING MANOHAR Ot R60.9 EDEMA, UNSPECIFIED 04/16/2019 ROLF RUSHING MANOHAR Ot R61 GENERALIZED HYPERHIDROSIS 04/16/2019 ROLF RUSHING MANOHAR Ot Z79.4 LEGAL SECRETARY (CURRENT) USE OF INSULIN 04/16/2019 ROLF RUSHING MANOHAR Ot Z87.89 1 PERSONAL HISTORY OF NICOTINE DEPENDENCE 04/16/2019 ROLF RUSHING MANOHAR Ot Z95.1 PRESENCE OF AORTOCORONARY BYPASS GRAFT 04/16/2019 ROLF RUSHING MANOHAR Ot E03.9 HYPOTHYROIDISM, UNSPECIFIED 04/16/2019 ROLF RUSHING MANOHAR Ot E11.9 TYPE 2 DIABETES MELLITUS WITHOUT COMPLIC 04/16/2019 ROLF RUSHING MANOHAR Ot E78.00 PURE HYPERCHOLESTEROLEMIA, UNSPECIFIED 04/16/2019 ROLF RUSHING MANOHAR Ot 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 04/16/2019 ROLF RUSHING MANOHAR Ot G47.00 INSOMNIA, UNSPECIFIED 04/16/2019 ROLF RUSHING MANOHAR Ot I10 ESSENTIAL (PRIMARY) HYPERTENSION 04/16/2019 ROLF RUSHING MANOHAR Ot I16.0 HYPERTENSIVE URGENCY 04/16/2019 ROLF RUSHING MANOHAR Ot 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 04/16/2019 ROLF RUSHING MANOHAR Ot I25.10 ATHSCL HEART DISEASE OF [place] CORONARY 04/16/2019 BANSAL DO, MANOHAR Ot K21.9 GASTRO-ESOPHAGEAL REFLUX DISEASE WITHOUT 04/16/2019 ROLF RUSHING MANOHAR Ot K44.9 DIAPHRAGMATIC HERNIA WITHOUT OBSTRUCTION 04/16/2019 ROLF RUSHING MANOHAR Ot M19.91 PRIMARY OSTEOARTHRITIS, UNSPECIFIED SITE 04/16/2019 ROLF RUSHING MANOHAR Ot M54.9 DORSALGIA, UNSPECIFIED 04/16/2019 ROLF RUSHING MANOHAR Ot R07.9 CHEST PAIN, UNSPECIFIED 04/16/2019 ROLF RUSHING MANOHAR Ot R60.9 EDEMA, UNSPECIFIED 04/16/2019 ROLF RUSHING MANOHAR Ot R61 GENERALIZED HYPERHIDROSIS 04/16/2019 ROLF RUSHING MANOHAR Ot Z79.4 LEGAL SECRETARY (CURRENT) USE OF INSULIN 04/16/2019 ROLF RUSHING MANOHAR Ot Z87.89 1 PERSONAL HISTORY OF NICOTINE DEPENDENCE 04/16/2019 ROLF RUSHING MANOHAR Ot Z95.1 PRESENCE OF AORTOCORONARY BYPASS GRAFT 04/18/2019 RENE LUCAS, BRITNEY A Ot M48.061 SPINAL STENOSIS, LUMBAR REGION WITHOUT N 04/18/2019 RENE LUCAS, DEVANGYLON A Ot M54.5 LOW BACK PAIN 04/22/2019 RENE LUCAS, BRITNEY A Ot M48.061 SPINAL STENOSIS, LUMBAR REGION WITHOUT N 07/01/2019 TORSTEN HILLS Ot K80.20 CALCULUS OF GALLBLADDER W/O CHOLECYSTITI 07/01/2019 TORSTEN HILLS Ot R10.31 RIGHT LOWER QUADRANT PAIN 07/06/2019 TORSTEN HILLS Ot K80.20 CALCULUS OF GALLBLADDER W/O CHOLECYSTITI 08/28/2019 CHARLOTTE LUCAS, ROSALINA Mcmillan Ot E03. 9 HYPOTHYROIDISM, UNSPECIFIED 08/28/2019 CHARLOTTE LUCAS, ROSALINA Mcmillan Ot E11. 9 TYPE 2 DIABETES MELLITUS WITHOUT COMPLIC 08/28/2019 CHARLOTTE LUCAS, ROSALINA Mcmillan Ot E78. 00 PURE HYPERCHOLESTEROLEMIA, UNSPECIFIED 08/28/2019 CHARLOTTE LUCAS, ROSALINA Mcmillan Ot I10 ESSENTIAL (PRIMARY) HYPERTENSION 08/28/2019 CHARLOTTE LUCAS, ROSALINA Mcmillan Ot I25. 10 ATHSCL HEART DISEASE OF [place] CORONARY 08/28/2019 CHARLOTTE LUCAS, ROSALINA Mcmillan Ot K21. 9 GASTRO-ESOPHAGEAL REFLUX DISEASE WITHOUT 08/28/2019 ROSALINA PORTER MD Ot R03. 0 ELEVATED BLOOD-PRESSURE READING, W/O GOGO 08/28/2019 ROSALINA PORTER MD Ot Z79. 4 LEGAL SECRETARY (CURRENT) USE OF INSULIN 08/28/2019 ROSALINA PORTER MD Ot Z79. 82 LEGAL SECRETARY (CURRENT) USE OF ASPIRIN 08/28/2019 ROSALINA PORTER MD Ot Z87.891 PERSONAL HISTORY OF NICOTINE DEPENDENCE 08/28/2019 ROSALINA PORTER MD Ot Z88. 5 ALLERGY STATUS TO NARCOTIC AGENT STATUS 08/28/2019 ROSALINA PORTER MD Ot Z95. 0 PRESENCE OF CARDIAC PACEMAKER 08/28/2019 ROSALINA PORTER MD Ot Z95. 9 PRESENCE OF CARDIAC AND VASCULAR IMPLANT 09/03/2019 ROSALINA PORTER MD Ot E03. 9 HYPOTHYROIDISM, UNSPECIFIED 09/03/2019 ROSALINA PORTER MD Ot E11. 9 TYPE 2 DIABETES MELLITUS WITHOUT COMPLIC 09/03/2019 ROSALINA PORTER MD Ot E78. 00 PURE HYPERCHOLESTEROLEMIA, UNSPECIFIED 09/03/2019 ROSALINA PORTER MD Ot I10 ESSENTIAL (PRIMARY) HYPERTENSION 09/03/2019 ROSALINA PORTER MD Ot I25. 10 ATHSCL HEART DISEASE OF [place] CORONARY 09/03/2019 ROSALINA PORTER MD Ot K21. 9 GASTRO-ESOPHAGEAL REFLUX DISEASE WITHOUT 09/03/2019 ROSALINA PORTER MD Ot R03. 0 ELEVATED BLOOD-PRESSURE READING, W/O GOGO 09/03/2019 ROSALINA PORTER MD Ot Z79. 4 RETIREMENT (CURRENT) USE OF INSULIN 09/03/2019 ROSALINA PORTER MD Ot Z79. 82 LEGAL SECRETARY (CURRENT) USE OF ASPIRIN 09/03/2019 ROSALINA PORTER MD Ot Z87.891 PERSONAL HISTORY OF NICOTINE DEPENDENCE 09/03/2019 ROSALINA PORTER MD Ot Z88. 5 ALLERGY STATUS TO NARCOTIC AGENT STATUS 09/03/2019 ROSALINA PORTER MD Ot Z95. 0 PRESENCE OF CARDIAC PACEMAKER 09/03/2019 ROASLINA PORTER MD Ot Z95. 9 PRESENCE OF CARDIAC AND VASCULAR IMPLANT Procedures Code Description Performed By Per alvaro On 60.29 [facility] TRANSURETHRAL PROSTATECTOMY 11/07/2009 Results Test Result Range Complete blood count (CBC) with automate d white blood cell (WBC) differential - 02/24/18 10:04 Blood leukocytes automated count (number/volume) 9.0 10*3/uL 4.3-11.0 Blood erythrocytes automated count (number/volume) 4.43 10*6/uL 4.35-5.85 Venous blood hemoglobin measurement (mass/volume) 12.1 g/dL 13.3-17.7 Blood hematocrit (volume fraction) 37 % 40-54 Automated erythrocyte mean corpuscular volume 82 [ foz_us] 80-99 Automated erythrocyte mean corpuscular h emoglobin (mass per erythrocyte) 27 pg 25-34 Automated erythrocyte mean corpuscular h emoglobin concentration measurement (mass/volume) 33 g/dL 32-36 Automated erythrocyte distribution width ratio 14. 5 % 10.0- 14.5 Automated blood platelet count (count/volume) 232 10*3/uL 130-400 Automated blood platelet mean volume measurement 10.9 [foz_us] 7.4-10.4 Automated blood neutrophils/100 leukocytes 61 % 42-75 Automated blood lymphocytes/100 leukocytes 26 % 12-44 Blood monocytes/100 leukocytes 8 % 0-12 Automated blood eosinophils/100 leukocytes 4 % 0-10 Automated blood basophils/100 leukocytes 0 % 0-10 Blood neutrophils automated count (number/volume) 5.5 10*3 1.8-7.8 Blood lymphocytes automated count (number/volume) 2.4 10*3 1.0-4.0 Blood monocytes automated count (number/volume) 0. 7 10*3 0.0-1.0 Automated eosinophil count 0.3 10*3/uL 0 .0-0.3 Automated blood basophil count (count/volume) 0.0 10*3/uL 0.0-0.1 Capillary blood glucose measurement by g lucometer (mass/volume) - 04/14/19 04:49 Capillary blood glucose measurement by glucometer (mas s/volume) 167 mg/dL 70-110 Complete blood count (CBC) with automate d white blood cell (WBC) differential - 04/14/19 05:05 Blood leukocytes automated count (number/volume) 8.9 10*3/uL 4.3-11.0 Blood erythrocytes automated count (number/volume) 4.47 10*6/uL 4.35-5.85 Venous blood hemoglobin measurement (mass/volume) 11.0 g/dL 13.3-17.7 Blood hematocrit (volume fraction) 36 % 40-54 Automated erythrocyte mean corpuscular volume 80 [ foz_us] 80-99 Automated erythrocyte mean corpuscular h emoglobin (mass per erythrocyte) 25 pg 25-34 Automated erythrocyte mean corpuscular h emoglobin concentration measurement (mass/volume) 31 g/dL 32-36 Automated erythrocyte distribution width ratio 15. 1 % 10.0- 14.5 Automated blood platelet count (count/volume) 230 10*3/uL 130-400 Automated blood platelet mean volume measurement 10.6 [foz_us] 7.4-10.4 Automated blood neutrophils/100 leukocytes 64 % 42-75 Automated blood lymphocytes/100 leukocytes 23 % 12-44 Blood monocytes/100 leukocytes 10 % 0-12 Automated blood eosinophils/100 leukocytes 3 % 0-10 Automated blood basophils/100 leukocytes 1 % 0-10 Blood neutrophils automated count (number/volume) 5.7 10*3 1.8-7.8 Blood lymphocytes automated count (number/volume) 2.0 10*3 1.0-4.0 Blood monocytes automated count (number/volume) 0. 9 10*3 0.0-1.0 Automated eosinophil count 0.2 10*3/uL 0 .0-0.3 Automated blood basophil count (count/volume) 0.0 10*3/uL 0.0-0.1 PT panel in platelet poor plasma by coag ulation assay - 04/14/19 05:05 Prothrombin time (PT) in platelet poor plasma by coagu lation assay 12.1 s 12.2-14.7 INR in platelet poor plasma or blood by coagulation as say 0.9 0.8-1.4 Activated partial thromboplastin time (a PTT) in platelet poor plasma bycoagulation assay - 04/14/19 05:05 Activated partial thromboplastin time (a PTT) in platelet poor plasma bycoagulation assay 31 s 24-35 Comprehensive metabolic panel - 04/14/19 05:05 Serum or plasma sodium measurement (moles/volume) 139 mmol/L 135-145 Serum or plasma potassium measurement (moles/volume) 3.9 mmol/L 3.6-5.0 Serum or plasma chloride measurement (moles/volume) 96 mmol/L 98-107 Carbon dioxide 25 mmol/L 21-32 Serum or plasma anion gap determination (moles/volume) 18 mmol/L 5-14 Serum or plasma urea nitrogen measurement (mass/volume ) 22 mg/dL 7-18 Serum or plasma creatinine measurement (mass/volume) 1.14 mg/dL 0.60-1.30 Serum or plasma urea nitrogen/creatinine mass ratio 19 NRG Serum or plasma creatinine measurement w ith calculation of estimated glomerular filtration rate > NRG Serum or plasma glucose measurement (mass/volume) 171 mg/dL 70-105 Serum or plasma calcium measurement (mass/volume) 9.4 mg/dL 8.5-10.1 Serum or plasma total bilirubin measurement (mass/volu me) 0.2 mg/dL 0.1-1.0 Serum or plasma alkaline phosphatase miguel surement (enzymatic activity/volume) 77 U/L 40-136 Serum or plasma aspartate aminotransfera se measurement (enzymatic activity/volume) 19 U/L 5-34 Serum or plasma alanine aminotransferase measurement (enzymatic activity/volume) 16 U/L 0-55 Serum or plasma protein measurement (mass/volume) 6.6 g/dL 6.4-8.2 Serum or plasma albumin measurement (mass/volume) 3.9 g/dL 3.2-4.5 CALCIUM CORRECTED 9.5 mg/dL 8.5-10.1 Magnesium - 04/14/19 05:05 Magnesium 1.8 mg/dL 1.8-2.4 Serum or plasma lithium measurement (mol es/volume) - 04/14/19 05:05 BNP PT 68.5 pg/mL <100.0 Serum or plasma troponin i.cardiac measu rement (mass/volume) - 04/14/19 05:05 Serum or plasma troponin i.cardiac measurement (mass/v olume) < ng/mL <0.028 Complete urinalysis with reflex to cultu re - 04/14/19 06:10 Urine color determination YELLOW NRG Urine clarity determination CLEAR NR G Urine pH measurement by test strip 7 5-9 Specific gravity of urine by test strip 1.010 1.016-1.022 Urine protein assay by test strip, semi-quantitative 1+ NEGATIVE Urine glucose detection by automated test strip NE GATIVE NEGATIVE Erythrocytes detection in urine sediment by light micr oscopy NEGATIVE NEGATIVE Urine ketones detection by automated test strip NE GATIVE NEGATIVE Urine nitrite detection by test strip NEGATIVE NEGATIVE Urine total bilirubin detection by test strip NEGA TIVE NEGATIVE Urine urobilinogen measurement by automated test strip (mass/volume) NORMAL NORMAL Urine leukocyte esterase detection by dipstick NEG ATIVE NEGATIVE Automated urine sediment erythrocyte cou nt by microscopy (number/high power field) NONE NRG Automated urine sediment leukocyte count by microscopy (number/high power field) NONE NRG Bacteria detection in urine sediment by light microsco py NEGATIVE NRG Squamous epithelial cells detection in u rine sediment by light microscopy RARE NRG Crystals detection in urine sediment by light microsco py PRESENT NRG Casts detection in urine sediment by light microscopy NONE NRG Mucus detection in urine sediment by light microscopy SMALL NRG Complete urinalysis with reflex to culture NO NRG Amorphous sediment detection in urine sediment by ligh t microscopy FEW RADHA PHOSPHATE NRG Capillary blood glucose measurement by g lucometer (mass/volume) - 04/14/19 11:03 Capillary blood glucose measurement by glucometer (mas s/volume) 221 mg/dL 70-110 Serum or plasma troponin i.cardiac measu rement (mass/volume) - 04/14/19 11:10 Serum or plasma troponin i.cardiac measurement (mass/v olume) < ng/mL <0.028 Capillary blood glucose measurement by g lucometer (mass/volume) - 04/14/19 20:54 Capillary blood glucose measurement by glucometer (mas s/volume) 225 mg/dL 70-110 Complete blood count (CBC) with automate d white blood cell (WBC) differential - 04/15/19 03:25 Blood leukocytes automated count (number/volume) 12.4 10*3/uL 4.3-11.0 Blood erythrocytes automated count (number/volume) 4.85 10*6/uL 4.35-5.85 Venous blood hemoglobin measurement (mass/volume) 11.8 g/dL 13.3-17.7 Blood hematocrit (volume fraction) 38 % 40-54 Automated erythrocyte mean corpuscular volume 78 [ foz_us] 80-99 Automated erythrocyte mean corpuscular h emoglobin (mass per erythrocyte) 24 pg 25-34 Automated erythrocyte mean corpuscular h emoglobin concentration measurement (mass/volume) 31 g/dL 32-36 Automated erythrocyte distribution width ratio 15. 5 % 10.0- 14.5 Automated blood platelet count (count/volume) 255 10*3/uL 130-400 Automated blood platelet mean volume measurement 10.8 [foz_us] 7.4-10.4 Automated blood neutrophils/100 leukocytes 69 % 42-75 Automated blood lymphocytes/100 leukocytes 19 % 12-44 Blood monocytes/100 leukocytes 10 % 0-12 Automated blood eosinophils/100 leukocytes 2 % 0-10 Automated blood basophils/100 leukocytes 0 % 0-10 Blood neutrophils automated count (number/volume) 8.6 10*3 1.8-7.8 Blood lymphocytes automated count (number/volume) 2.4 10*3 1.0-4.0 Blood monocytes automated count (number/volume) 1. 2 10*3 0.0-1.0 Automated eosinophil count 0.2 10*3/uL 0 .0-0.3 Automated blood basophil count (count/volume) 0.0 10*3/uL 0.0-0.1 Comprehensive metabolic panel - 04/15/19 03:25 Serum or plasma sodium measurement (moles/volume) 138 mmol/L 135-145 Serum or plasma potassium measurement (moles/volume) 3.6 mmol/L 3.6-5.0 Serum or plasma chloride measurement (moles/volume) 99 mmol/L 98-107 Carbon dioxide 26 mmol/L 21-32 Serum or plasma anion gap determination (moles/volume) 13 mmol/L 5-14 Serum or plasma urea nitrogen measurement (mass/volume ) 18 mg/dL 7-18 Serum or plasma creatinine measurement (mass/volume) 1.06 mg/dL 0.60-1.30 Serum or plasma urea nitrogen/creatinine mass ratio 17 NRG Serum or plasma creatinine measurement w ith calculation of estimated glomerular filtration rate > NRG Serum or plasma glucose measurement (mass/volume) 124 mg/dL 70-105 Serum or plasma calcium measurement (mass/volume) 9.8 mg/dL 8.5-10.1 Serum or plasma total bilirubin measurement (mass/volu me) 0.5 mg/dL 0.1-1.0 Serum or plasma alkaline phosphatase miguel surement (enzymatic activity/volume) 77 U/L 40-136 Serum or plasma aspartate aminotransfera se measurement (enzymatic activity/volume) 19 U/L 5-34 Serum or plasma alanine aminotransferase measurement (enzymatic activity/volume) 13 U/L 0-55 Serum or plasma protein measurement (mass/volume) 6.9 g/dL 6.4-8.2 Serum or plasma albumin measurement (mass/volume) 4.0 g/dL 3.2-4.5 CALCIUM CORRECTED 9.8 mg/dL 8.5-10.1 Serum or plasma troponin i.cardiac measu rement (mass/volume) - 04/15/19 03:25 Serum or plasma troponin i.cardiac measurement (mass/v olume) 0.055 ng/mL <0.028 Capillary blood glucose measurement by g lucometer (mass/volume) - 04/15/19 11:22 Capillary blood glucose measurement by glucometer (mas s/volume) 265 mg/dL 70-110 Capillary blood glucose measurement by g lucometer (mass/volume) - 04/15/19 15:29 Capillary blood glucose measurement by glucometer (mas s/volume) 250 mg/dL 70-110 Capillary blood glucose measurement by g lucometer (mass/volume) - 04/15/19 19:34 Capillary blood glucose measurement by glucometer (mas s/volume) 113 mg/dL 70-110 Capillary blood glucose measurement by g lucometer (mass/volume) - 04/15/19 21:29 Capillary blood glucose measurement by glucometer (mas s/volume) 139 mg/dL 70-110 Capillary blood glucose measurement by g lucometer (mass/volume) - 04/16/19 00:44 Capillary blood glucose measurement by glucometer (mas s/volume) 179 mg/dL 70-110 Capillary blood glucose measurement by g lucometer (mass/volume) - 04/16/19 02:57 Capillary blood glucose measurement by glucometer (mas s/volume) 190 mg/dL 70-110 Capillary blood glucose measurement by g lucometer (mass/volume) - 04/16/19 06:05 Capillary blood glucose measurement by glucometer (mas s/volume) 154 mg/dL 70-110 [id number] - 06/08/19 10:52 Serum or plasma urea nitrogen measurement (mass/volume ) 22 mg/dL 7-18 Serum or plasma creatinine measurement (mass/volume) 1.29 mg/dL 0.60-1.30 Serum or plasma urea nitrogen/creatinine mass ratio 17 NRG Serum or plasma creatinine measurement w ith calculation of estimated glomerular filtration rate 53 NRG Complete blood count (CBC) with automate d white blood cell (WBC) differential - 08/28/19 11:03 Blood leukocytes automated count (number/volume) 9.8 10*3/uL 4.3-11.0 Blood erythrocytes automated count (number/volume) 4.21 10*6/uL 4.35-5.85 Venous blood hemoglobin measurement (mass/volume) 10.5 g/dL 13.3-17.7 Blood hematocrit (volume fraction) 33 % 40-54 Automated erythrocyte mean corpuscular volume 79 [ foz_us] 80-99 Automated erythrocyte mean corpuscular h emoglobin (mass per erythrocyte) 25 pg 25-34 Automated erythrocyte mean corpuscular h emoglobin concentration measurement (mass/volume) 32 g/dL 32-36 Automated erythrocyte distribution width ratio 15. 0 % 10.0- 14.5 Automated blood platelet count (count/volume) 260 10*3/uL 130-400 Automated blood platelet mean volume measurement 9.8 [foz_us] 7.4-10.4 Automated blood neutrophils/100 leukocytes 69 % 42-75 Automated blood lymphocytes/100 leukocytes 22 % 12-44 Blood monocytes/100 leukocytes 8 % 0-12 Automated blood eosinophils/100 leukocytes 2 % 0-10 Automated blood basophils/100 leukocytes 0 % 0-10 Blood neutrophils automated count (number/volume) 6.7 10*3 1.8-7.8 Blood lymphocytes automated count (number/volume) 2.2 10*3 1.0-4.0 Blood monocytes automated count (number/volume) 0. 8 10*3 0.0-1.0 Automated eosinophil count 0.2 10*3/uL 0 .0-0.3 Automated blood basophil count (count/volume) 0.0 10*3/uL 0.0-0.1 Comprehensive metabolic panel - 08/28/19 11:03 Serum or plasma sodium measurement (moles/volume) 134 mmol/L 135-145 Serum or plasma potassium measurement (moles/volume) 4.7 mmol/L 3.6-5.0 Serum or plasma chloride measurement (moles/volume) 96 mmol/L 98-107 Carbon dioxide 24 mmol/L 21-32 Serum or plasma anion gap determination (moles/volume) 14 mmol/L 5-14 Serum or plasma urea nitrogen measurement (mass/volume ) 20 mg/dL 7-18 Serum or plasma creatinine measurement (mass/volume) 1.27 mg/dL 0.60-1.30 Serum or plasma urea nitrogen/creatinine mass ratio 16 NRG Serum or plasma creatinine measurement w ith calculation of estimated glomerular filtration rate 54 NRG Serum or plasma glucose measurement (mass/volume) 231 mg/dL 70-105 Serum or plasma calcium measurement (mass/volume) 9.2 mg/dL 8.5-10.1 Serum or plasma total bilirubin measurement (mass/volu me) 0.2 mg/dL 0.1-1.0 Serum or plasma alkaline phosphatase miguel surement (enzymatic activity/volume) 91 U/L 40-136 Serum or plasma aspartate aminotransfera se measurement (enzymatic activity/volume) 23 U/L 5-34 Serum or plasma alanine aminotransferase measurement (enzymatic activity/volume) 19 U/L 0-55 Serum or plasma protein measurement (mass/volume) 6.6 g/dL 6.4-8.2 Serum or plasma albumin measurement (mass/volume) 3.9 g/dL 3.2-4.5 CALCIUM CORRECTED 9.3 mg/dL 8.5-10.1 Serum or plasma troponin i.cardiac measu rement (mass/volume) - 08/28/19 11:03 Serum or plasma troponin i.cardiac measurement (mass/v olume) < ng/mL <0.028 THYROID STIMULATING HORMONE - 08/28/19 1 1:03 THYROID STIMULATING HORMONE 2.12 u[iU]/mL 0.35-4.94 Complete urinalysis with reflex to cultu re - 08/28/19 11:15 Urine color determination YELLOW NRG Urine clarity determination CLEAR NR G Urine pH measurement by test strip 5.5 5-9 Specific gravity of urine by test strip 1.010 1.016-1.022 Urine protein assay by test strip, semi-quantitative NEGATIVE NEGATIVE Urine glucose detection by automated test strip NE GATIVE NEGATIVE Erythrocytes detection in urine sediment by light micr oscopy NEGATIVE NEGATIVE Urine ketones detection by automated test strip NE GATIVE NEGATIVE Urine nitrite detection by test strip NEGATIVE NEGATIVE Urine total bilirubin detection by test strip NEGA TIVE NEGATIVE Urine urobilinogen measurement by automated test strip (mass/volume) 0.2 mg/dL < = 1.0 Urine leukocyte esterase detection by dipstick NEG ATIVE NEGATIVE Automated urine sediment erythrocyte cou nt by microscopy (number/high power field) NONE NRG Automated urine sediment leukocyte count by microscopy (number/high power field) NONE NRG Bacteria detection in urine sediment by light microsco py TRACE NRG Crystals detection in urine sediment by light microsco py NONE NRG Casts detection in urine sediment by light microscopy NONE NRG Mucus detection in urine sediment by light microscopy NEGATIVE NRG Complete urinalysis with reflex to culture NO NRG Encounters ACCT No. Visit Date/Time Discharge Status Pt. Type Provider Facility Loc./Unit Complaint [id number] 08/28/2019 10:16:00 12:27:00 DIS Emergency CHARLOTTE LUCAS, ROSALINA Mcmillan [facility] ER ELEVATED BLOOD PRESSURE ,NOSE BLEED [id number] 06/08/2019 13:17:00 23:59:59 CLS Outpatient TORSTEN HILLS [facility] RAD ABD PAIN, RLQ [id number] 06/08/2019 10:23:00 23:59:59 CLS Outpatient TORSTEN HILLS [facility] LAB R10.31 [id number] 04/22/2019 13:26:00 14:13:00 DIS Outpatient BRITNEY LÓPEZ MD [facility] REHAB LUMBAR STENOSIS ;LOW BACK PAIN [id number] 04/14/2019 06:00:00 23:59:59 CLS Inpatient ROLF RUSHING, MANOHAR V ia [facility] 4TH UNCONTROLLED HTN;HX OF CAD [id number] 03/25/2019 13:25:00 00:01:00 DIS Outpatient BRITNEY LÓPEZ MD [facility] REHAB LUMBAR STENOSIS ;LOW BACK PAIN [id number] 12/30/2018 08:10:00 23:59:59 CLS Outpatient CINTHYA LUCAS FACC, JAMES GAXIOLA CC DS [facility] CARD DIZZINESS, CAD, LEG SWELLING [id number] 08/10/2018 13:32:00 23:59:59 CLS Outpatient RADHA ARAIZA MD [facility] RAD POST PERATIVE PAIN [id number] 06/16/2018 10:05:00 018 23:59:59 CLS Outpatient DORIAN ERAZO [facility] CARD R06.02 SOB [id number] 02/24/2018 09:46:00 018 23:59:59 CLS Outpatient MARIO MASCORRO APRN [facility] RAD R05 [id number] 02/08/2018 13:58:00 018 23:59:59 CLS Outpatient KVNGJOSEDORIAN [facility] RT SOB,CAD,CAROTID ARTERIAL DISEASE [id number] 01/19/2018 07:44:00 23:59:59 CLS Outpatient JAMES MENDES MD, FACC, FACP CC DS [facility] CARD SOB,CAD,CAR OTID ARTERIAL DISEASE [id number] 03/03/2017 11:12:00 017 23:59:59 CLS Outpatient RADHA ARAIZA MD [facility] RAD LBP [id number] 08/12/2016 13:04:00 016 23:59:59 CLS Outpatient JAMES MENDES MD, FACC, FACP CC DS [facility] RAD CAD,RT LEG CLAUDICATION [id number] 07/03/2016 12:31:00 016 23:59:59 CLS Outpatient JAMES MENDES MD, FACCP CC DS [facility] CARD SOB,CAD [id number] 07/01/2016 07:41:00 016 23:59:59 CLS Outpatient JAMES MENDES MD, FACC, FACP CC DS [facility] CARD CAD,SOB [id number] 10/30/2015 10:47:00 016 23:59:59 CLS Outpatient RADHA ARAIZA MD [facility] RAD LOWER CHEST POP [id number] 06/13/2015 10:58:00 015 23:59:59 CLS Outpatient RADHA ARAIZA MD [facility] RAD PAIN R LOWER BACK [id number] 08/30/2014 12:24:00 23:59:59 CLS Outpatient TEODORA LUCAS, RADHA Xiong [facility] LAB NAUSEA DIZZINESS [id number] 09/20/2013 11:02:00 12:57:00 DIS Emergency PAULINE BOATENG MD [facility] ER BLOOD IN URINE [id number] 08/04/2013 08:26:00 23:59:59 CLS Outpatient JESSIE COLEMAN MD [facility] RAD HEMATURIA [id number] 07/27/2013 08:02:00 11:20:00 DIS Outpatient RONDA FALK MD [facility] SDC REFLUX [id number] 07/26/2013 12:34:00 23:59:59 CLS Outpatient RONDA FALK MD [facility] PREOP REFLUX [id number] 07/14/2013 07:13:00 23:59:59 CLS Outpatient RONDA FALK MD [facility] PREOP REFLUX [id number] 07/26/2015 11:17:00 Document Registration [id number] 07/29/2012 13:43:00 Document Registration [id number] 07/28/2012 07:59:00 Document Registration [id number] 06/26/2012 16:25:00 Document Registration [id number] 04/07/2012 15:03:00 Document Registration [id number] 12/03/2011 11:28:00 Document Registration [id number] 02/20/2011 15:30:00 Document Registration [id number] 02/19/2011 09:50:00 Document Registration [id number] 02/18/2011 11:52:00 Document Registration [id number] 01/30/2011 12:32:00 Document Registration [id number] 07/15/2010 11:03:00 Document Registration [id number] 02/21/2010 09:20:00 Document Registration
== END 2019-08-28 12:27 | disposition home or self-care (01) ==
LOC: EDUNIT# 10:15 → ER 10:16
DX: I10 Essential (primary) hypertension (principal); I25.10 Atherosclerotic heart disease of native coronary artery without angina pectoris; E78.00 Pure hypercholesterolemia, unspecified; E11.9 Type 2 diabetes mellitus without complications; E03.9 Hypothyroidism, unspecified; K21.9 Gastro-esophageal reflux disease without esophagitis; Z88.5 Allergy status to narcotic agent; Z79.82 Long term (current) use of aspirin; Z79.4 Long term (current) use of insulin; Z87.891 Personal history of nicotine dependence; Z95.9 Presence of cardiac and vascular implant and graft, unspecified; Z95.0 Presence of cardiac pacemaker
CPT/HCPCS: 36415; 71045; 80053; 81000; 84443; 84484; 85025; 93005

== ENCOUNTER → 2020-05-04 | Outpatient (CLI) | payer MEDICARE ==
[~2020-05-04] VITALS: Ht 173 cm; Wt 93.0 kg
[~2020-05-04] MED LIST changes: +ALPR0.25 PO; +CATHETER FLUSH 10 ML SYR IV PRN; +MULT-567 PO; -MULT1TAB69 PO; +REGADENOSON 0.4 MG/5 ML SYR (LEXISCAN) IV ONE
[2020-05-04 08:45] VITALS: BP 168/70
--- NOTE | 2020-05-09 20:50 | STRESS TEST ---
DATE OF SERVICE: 05/04/2020 RESTING AND POST REGADENOSON TECHNETIUM-99M TETROFOSMIN SPECT CT IMAGING ORDERING PHYSICIAN: Kathleen Alfaro APRN. PRIMARY PHYSICIAN: Dr. García. OTHER PHYSICIAN: Dr. Mendes. CLINICAL DIAGNOSIS: Chest discomfort, coronary artery disease. Baseline images were carried out after injection of 10.71 mCi of technetium-99m Tetrofosmin. This was followed by 0.4 mg of Regadenoson and 32.7 mCi of technetium-99m Tetrofosmin for stress imaging. The electrocardiogram showed sinus rhythm and it did not change significantly with the Regadenoson infusion. The patient noted some nausea following Regadenoson infusion, which resolved in a few minutes. Review of images at rest and following stress indicates a transient basal inferior perfusion defect. Gated images showed normal global left ventricular systolic function with a normal regional wall motion. Left ventricular ejection fraction is calculated to be 65%. Left ventricular end diastolic volume is 77 mL. CONCLUSIONS: 1. This study suggests a small to moderate amount of basal inferior ischemia. 2. Normal regional wall motion. 3. Normal global left ventricular systolic function with a calculated ejection fraction of 65%. Job ID: [id number] DocumentID: [id number] Dictated Date: 05/09/2020 12:46:36 Category Director Date: 05/09/2020 13:06:01 Dictated By: JAMES MENDES MD, MA, FACP, FACC,
== END ==
LOC: CARD 07:20
PROVIDERS: ATTEND Nurse Practitioner Family
DX: I25.10 Atherosclerotic heart disease of native coronary artery without angina pectoris (principal); I10 Essential (primary) hypertension; E78.5 Hyperlipidemia, unspecified; I77.89 Other specified disorders of arteries and arterioles
CPT/HCPCS: 78452; 93017; A9502

== ENCOUNTER → 2020-11-27 | Outpatient (CLI) | payer MEDICARE ==
[~2020-11-27] MED LIST changes: +ASPI-1238 PO; -ASPI-983 PO; -CATHETER FLUSH 10 ML SYR IV PRN; -LISI-552 PO; +LISI20TA26 PO; -REGADENOSON 0.4 MG/5 ML SYR (LEXISCAN) IV ONE
--- NOTE | 2020-11-27 17:18 | Diagnostic Imaging Report ---
INDICATION: Peripheral vascular disease. TECHNIQUE: A noninvasive study was performed of the lower extremities in the routine fashion. FINDINGS: The ankle-brachial index was 1.21 on the right side and 1.49 on the left side in the lower thigh. The ankle-brachial index is 1.39 in the right calf and 1.10 in the left calf. The ankle-brachial index of the posterior tibial artery is 1.25 on the right side and 0.97 on the left side. The ankle-brachial index is 0.89 on the right side for dorsalis pedis and 1.0 for dorsalis pedis on the left side. Segmental pressures show no overt abnormalities. IMPRESSION: No significant peripheral vascular disease except for perhaps some mild small vessel disease in the right dorsalis pedis. Dictated by: Dictated on workstation # [id number]
== END ==
LOC: RAD 12:30
PROVIDERS: ATTEND Nurse Practitioner Family
DX: I73.89 Other specified peripheral vascular diseases (principal)
CPT/HCPCS: 93923

== ENCOUNTER → 2022-01-21 | Outpatient (CLI) | payer MEDICARE ==
[~2022-01-21] MED LIST changes: +BISO-2 PO; -BISO1TAB3 PO; -POTA99TA21 PO; +POTA99TA26 PO
[2022-01-21 10:42] LABS: ABSOLUTE RETIC # 59 10e9/uL (24-90); BASOPHILS # (AUTO) 0.1 10^3/uL (0.0-0.1); BASOPHILS % (AUTO) 1 % (0-10); EOSINOPHILS # (AUTO) 0.3 10^3/uL (0.0-0.3); EOSINOPHILS % (AUTO) 3 % (0-10); HEMATOCRIT 35 % (40-54); HEMOGLOBIN 11.1 g/dL (13.3-17.7); LYMPHOCYTES # (AUTO) 3.1 10^3/uL (1.0-4.0); LYMPHOCYTES % (AUTO) 25 % (12-44); MEAN CORPUSCULAR HEMOGLOBIN 26 pg (25-34); MEAN CORPUSCULAR HGB CONC 32 g/dL (32-36); MEAN CORPUSCULAR VOLUME 81 fL (80-99); MEAN PLATELET VOLUME 10.2 fL (9.0-12.2); MONOCYTES % (AUTO) 8 % (0-12); NEUTROPHILS # (AUTO) 7.5 10^3/uL (1.8-7.8); NEUTROPHILS % (AUTO) 62 % (42-75); PLATELET COUNT 249 10^3/uL (130-400); RETICULOCYTE % 1.37 % (0.50-2.40); WHITE BLOOD COUNT 12.1 10^3/uL (4.3-11.0)
[2022-01-21 13:15] LABS: BAND NEUTROPHILS 3 %; BASOPHILS % (MANUAL) 2 %; ELLIPT/OVALOCYTES SLIGHT; EOSINOPHILS % (MANUAL) 3 %; LYMPHOCYTES % (MANUAL) 25 %; MICROCYTOSIS SLIGHT; MONOCYTES % (MANUAL) 4 %; NEUTROPHILS % (MANUAL) 63 %
== END ==
LOC: LAB 10:17
PROVIDERS: ATTEND Family Medicine
DX: D72.829 Elevated white blood cell count, unspecified (principal)
CPT/HCPCS: 36415; 85007; 85027; 85045; 85055